=== PATIENT | male | born 1965 | race Caucasian/White ===

== ENCOUNTER 2019-04-07 00:09 | Day surgery (SDC) | payer BC, SELFPAY ==
[2019-04-06 10:46] VITALS: BMI 23.2
[2019-04-07 07:55] VITALS: BP 135/90; PULSE 64; RESP 20; TEMP 36.6; O2SAT 97; BMI 22.7
[2019-04-07] MEDS: LACTATED RINGERS 1,000 ML 150 ML IV CONT (08:08)
--- NOTE | 2019-04-07 08:15 | P.PNAN_ITS ---
Anes - Initial Pre Proc Eval Procedure: Operation Date: 04/07/19 09:00 Proposed Procedures p Screening Colonoscopy - Alexx Clarke MD Date/Time: 04/07/19 08:15 Surgeon: Alexx Clarke MD Pre Op Diagnosis: Neoplasm Screening Patient Data Age: 54 Gender: M Height: 6 ft 1 in Weight: 78.3 kg Last Vital Signs Temp 97.9 F 04/07/19 07:55 Pulse 64 04/07/19 07:55 Resp 20 04/07/19 07:55 BP 135/90 04/07/19 07:55 Pulse Ox 97 04/07/19 07:55 Allergies Allergy/AdvReac Type Severity Reaction Status Date / Time aspirin Allergy Unknown SWELLING Verified 04/06/19 10:44 morphine AdvReac Intermediate HIVES Verified 04/06/19 10:44 Home Medications Medication Instructions Recorded Confirmed Type fenofibrate 54 mg PO QAM 04/06/19 04/06/19 History Patient hx anesthesia problems: none Family hx anesthesia problems: none [facility] Past Medical History Medical History (Updated 04/07/19 @ 08:15 by Anupam Ambrocio MD) Hyperlipidemia Anes - Eval Final PreProcedure Day of Procedure 04/07/19 08:15 Patient weight: normal Heart: regular rate and rhythm Lungs: clear to auscultation Airway: Mallampati scale class II Neurological: alert and oriented Last oral intake: >/= 8 hours ASA classification: II Emergent: no Anesthetic plan: proceed Anesthesia type and monitoring: general GIVS and standard monitoring Informed Consent: The patient's anesthetic plan and its attendant risks and benefits were discussed with the patient/family/POA. Questions were solicited and answers provided to the satisfaction of the patient/family/POA.
--- NOTE | 2019-04-07 08:31 | P.HP_ITS ---
History of Present Illness History of Present Illness Consent: Risks, benefits, and alternatives have been discussed and questions answered. Patient agrees to proceed with procedure. Chief complaint: Neoplasm Screening Narrative: Apolinar Hernandez is a 54 year old male here for screening colonoscopy, never had one. Review of Systems Constitutional: Constitutional: Denies headache(s) and Denies weakness Eyes: Eyes: Denies blurry vision ENT: Reports Normal hearing present, Denies headache(s) and Denies neck pain Cardiovascular: Cardiovascular: Denies chest pain and Denies dyspnea Respiratory: Respiratory: Denies dyspnea Gastrointestinal: Gastrointestinal: Reports no additional gastrointestinal complaints Genitourinary: Genitourinary: Denies dysuria Musculoskeletal: Musculoskeletal: Denies neck pain Integumentary/Breasts: Skin/Breast: Denies dry skin Neurologic: Reports Normal hearing present, Denies headache(s) and Denies wea kness Psychiatric: Psychiatric: Denies anxiety Endocrine: Endocrine: Denies change in body appearance Hematologic/Lymphatic: Hematologic/Lymphatic: Denies easy bleeding Allergic/Immunologic: Allergic/Immunologic: Denies urticaria PMFSH Past Medical History Medical History (Updated 04/07/19 @ 08:31 by Alexx Clarke MD) Colon cancer screening Hyperlipidemia Meds Home Medications and Allergies Home Medications Medication Instructions Recorded Confirmed Type fenofibrate 54 mg PO QAM 04/06/19 04/06/19 History Allergies Allergy/AdvReac Type Severity Reaction Status Date / Time aspirin Allergy Unknown SWELLING Verified 04/06/19 10:44 morphine AdvReac Intermediate HIVES Verified 04/06/19 10:44 Vital Signs Vital Signs - 24 hr 04/07/19 07:55 Temperature 97.9 F Pulse Rate 64 Respiratory Rate 20 Blood Pressure 135/90 Pulse Oximetry 97 Exam Const: General: comfortable and no acute distress HENMT: General nose exam: Normal nares present Eyes: General: appearance normal, both eyes and all related structures Neck: Neck: no JVD Resp: Auscultation: clear to auscultation bilaterally Cardio: Rate: regular rate Rhythm: regular rhythm GI: Inspection: non-distended GI Palp: Yes Soft to palpation Skin: General skin exam: normal color Neuro: General: gait normal Speech: normal speech Extrem: General: normal to inspection Psych: Mental Status: mental status grossly normal Assessment and Plan Assessment and plan (1) Colon cancer screening: Code(s): Z12.11 - Encounter for screening for malignant neoplasm of colon Status: Acute Assessment and Plan: will proceed with colonoscopy
[2019-04-07 08:50] VITALS: BP 116/69; PULSE 68; RESP 20; O2SAT 97
[2019-04-07 09:00] VITALS: BP 110/73; PULSE 60; RESP 20; O2SAT 97
[2019-04-07 09:10] VITALS: BP 110/71; PULSE 53; RESP 20; O2SAT 97
== END 2019-04-07 09:18 | disposition home or self-care (01) ==
PROVIDERS: PCP Family Medicine Sports Medicine; Visit Provider Internal Medicine Gastroenterology
PROC: 0DJD8ZZ Inspection of Lower Intestinal Tract, Via Natural or Artificial Opening Endoscopic (ICD-10-PCS; CPT 45378; principal; 2019-04-07 09:00)
DX: Z12.11 Encounter for screening for malignant neoplasm of colon (principal); K64.8 Other hemorrhoids; K64.4 Residual hemorrhoidal skin tags; E78.5 Hyperlipidemia, unspecified
CPT/HCPCS: 45378; J2704; J7120

== ENCOUNTER 2019-10-13 14:39 | Outpatient (CLI) | payer BC, SELFPAY ==
--- NOTE | ~2019-10-13 | CT_ITS ---
EXAMINATION: CT abdomen pelvis wo con DATE: 10/13/2019 15:16 INDICATION: Left flank pain. History of stones. TECHNIQUE: Computed tomography (CT) of the abdomen and pelvis was performed without intravenous contr ast. The dose-length product was 373.68 mGy-cm. Automated exposure control and iterative reconstructi on technique were employed. COMPARISON: CT dated 08/20/2017. FINDINGS: There is a new 1.7 cm mass left lower lobe in the posterior costophrenic sulcus. Heart size is normal. No pleural or pericardial effusion. There is dependent atelectasis right lower lobe. The liver, spleen, pancreas, adrenal glands are unremarkable. There are multiple nonobstructing right renal stones, largest measuring 3 mm. There are punctate nonobstructing left renal stones. Gallbladd er is present. Nonobstructive bowel gas pattern. Colonic diverticulosis without evidence for divertic ulitis. Fat-containing left inguinal hernia. No abnormal pelvic masses or fluid collections. Gallblad eileen is present. No free air or free fluid. There is a punctate distal left ureteral stone, image 165. No significant hydronephrosis. IMPRESSION: 1. Punctate 2 mm distal left ureteral stone just proximal to the UVJ. No significant hydronephrosis. 2: New 1.7 cm left lower lobe mass posterior costophrenic sulcus. Recommend further evaluation with p et/CT and/or tissue sampling. Cannot exclude malignancy. 3: Nonobstructing bilateral nephrolithiasis. Reviewed, dictated and finalized at location A. IMPRESSION: 1. Punctate 2 mm distal left ureteral stone just proximal to the UVJ. No signif icant hydronephrosis. 2: New 1.7 cm left lower lobe mass posterior costophrenic sulcus. Recommend fur ther evaluation with pet/CT and/or tissue sampling. Cannot exclude malignancy. 3: Nonobstructing bilateral nephrolithiasis.
== END 2019-10-13 14:40 | disposition home or self-care (01) ==
LOC: ANHIMG 14:44
PROVIDERS: PCP Family Medicine Sports Medicine; Visit Provider Urology
DX: R10.9 Unspecified abdominal pain (principal); R91.8 Other nonspecific abnormal finding of lung field; N20.0 Calculus of kidney
CPT/HCPCS: 74176

== ENCOUNTER 2019-10-15 01:28 | Day surgery (SDC) | payer BC, SELFPAY ==
[2019-10-14 15:14] VITALS: BMI 23.1
[2019-10-15] VITALS (7 sets, daily range): BP systolic 120–142; BP diastolic 72–88; PULSE 53–78; RESP 12–16; TEMP 36.6–36.8; O2SAT 97–99; BMI 22.8
--- NOTE | ~2019-10-15 | XR_ITS ---
EXAMINATION: XR fluoroscopy no charge EXAM DATE: 10/15/2019 12:48 INDICATION: Left ureteral stone. TECHNIQUE: Fluoroscopy used during XR fluoroscopy no charge performed by Dr. Tanner Sheriff MD. The DAP for this procedure was 0.11 mGym2. FINDINGS: Left ureter was cannulated, with wire extending up the ureter. Correlate with procedure n ote. IMPRESSION: Fluoroscopy used during XR fluoroscopy no charge. Reviewed, dictated and finalized at location A.
--- NOTE | 2019-10-15 07:22 | WPDHPUPDATE1 ---
History and Physical Update Update Date/Time: 10/15/19 07:22 History and Physical has been reviewed, including an updated exam of the patient. There are NO changes in the patient's condition. Risks, benefits, and alternatives have been discussed and questions answered. Patient agrees to proceed with procedure.
--- NOTE | 2019-10-15 11:16 | ECG_ITS ---
Measurements Intervals [place] Rate: 55 P: 76 RI: 267 QRS: 62 QRSD: 90 T: 44 QT: 408 QTc: 390 Interpretive Statements SINUS BRADYCARDIA WITH FIRST DEGREE AV BLOCK INCOMPLETE RIGHT BUNDLE BRANCH BLOCK PEAKED T WAVES- CONSIDER HYPERKALEMIA OR ISCHEMIA ABNORMAL ECG Electronically Signed On 10-15-2019 12:48:27 CDT by Roge Abreu D.O.
[2019-10-15] MEDS: LACTATED RINGERS 1,000 ML 30 ML IV CONT (11:25)
--- NOTE | 2019-10-15 11:52 | WPDANESEPPF ---
Anes - Initial Pre Proc Eval Procedure: Operation Date: 10/15/19 13:00 Proposed Procedures p Cystoscopy, Left Ureteroscopy, Left Stone Extraction - Tanner Sheriff MD Date/Time: 10/15/19 11:52 Surgeon: Tanner Sheriff MD Pre Op Diagnosis: Left Ureteral Stone Patient Data Age: 54 Gender: M Height: 6 ft 1 in Weight: 78.4 kg Last Vital Signs Temp 36.8 C 10/15/19 11:46 Pulse 53 L 10/15/19 11:46 Resp 16 10/15/19 11:46 BP 130/85 10/15/19 11:46 Pulse Ox 98 10/15/19 11:46 Allergies Allergy/AdvReac Type Severity Reaction Status Date / Time aspirin Allergy Unknown SWELLING Verified 10/15/19 11:47 morphine AdvReac Intermediate HIVES Verified 10/15/19 11:47 Home Medications Medication Instructions Recorded Confirmed Type fenofibrate 54 mg PO QAM 04/06/19 10/15/19 History Vitamin C 1 tablet PO DAILY 10/14/19 10/15/19 History Patient hx anesthesia problems: none Family hx anesthesia problems: none PMFSH Past Medical History Medical History Colon cancer screening Hyperlipidemia Social History Social History Smoking status: Never smoker Spiritual care concerns: No Anes - Eval Final PreProcedure Day of Procedure 10/15/19 11:52 Patient weight: normal Heart: regular rate and rhythm Lungs: clear to auscultation Airway: Mallampati scale class II Neurological: alert and oriented Last oral intake: >/= 8 hours ASA classification: II Emergent: no Anesthetic plan: proceed Anesthesia type and monitoring: general LMA and standard monitoring Informed Consent: The patient's anesthetic plan and its attendant risks and benefits were discussed with the patient/family/POA. Questions were solicited and answers provided to the satisfaction of the patient/family/POA.
[2019-10-15] MEDS: ceFAZolin 2 GM/D5W 50 ML 2 GM/50 ML BAG IVPB (12:23)
[2019-10-15] MEDS: KETOROLAC 30 MG/ML VIAL (*BKC) IV PUSH (12:42)
--- NOTE | 2019-10-15 12:47 | P.OP_ITS ---
Procedure Note - Detailed Date of procedure: 10/15/19 Pre-op diagnosis: Left Ureteral Stone Post-op diagnosis: same Procedure performed: Cystoscopy, left ureteroscopy with stone extraction Description of procedure: The patient was brought to the operative suite where he is prepped and draped in a routine sterile fashion while in the dorsal lithotomy position after the uneventful induction of a general LMA anesthetic. A 19F rigid cystoscope was placed in the bladder. There are no urethral strictures. His prostatic urethra measures, approximately, 1.5cm with no median lobe enlargement. The bladder mucosa was endoscopically normal without hyperemia or neoplasm. There was a single, orthotopic ureteral orifice bilaterally. A 0.035 glidewire was advanced into the left renal pelvis under fluoroscopy. The distal ureter was dilated with an 8F/10F ureteral dilator. Ureteroscopy was undertaken with a short, tapered, semi-rigid ureteroscope and the stone was extracted with ease using a 1.9F [employer] disposable stone basket. In grasping the stone in the bladder the fractured into multiple small pieces which were non retrievable because other tiny size.Due to the ease of this manipulation I opted not to place a ureteral stent. The patient's bladder was emptied and was taken to the recovery room having tolerated this procedure well. Anesthesia: GLMA Surgeon: Tanner Sheriff MD Estimated blood loss (mL): 0 Drains: No Packing: No Pathology: none sent Complications: No immediate complications Condition: stable Disposition: PACU
--- NOTE | 2019-10-20 08:09 | P.HP_ITS ---
History of Present Illness History of Present Illness Consent: Risks, benefits, and alternatives have been discussed and questions answered. Patient agrees to proceed with procedure. Chief complaint: Left Ureteral Stone Narrative: Apolinar Hernandez is a 54 year old male with history of urolithiasis. He recently called with left renal colic and CT-abd/pelvis showed an obstructing 2mm left distal ureteral stone. He denied fever/chills or gross hematuria. Review of Systems Cardiovascular: Cardiovascular: Denies chest pain, Denies lightheadedness, Denies palpitations and Denies dyspnea Respiratory: Respiratory: Denies dyspnea Gastrointestinal: Gastrointestinal: Denies diarrhea, Denies nausea and Denies vomiting Genitourinary: Genitourinary: Denies hematuria and Denies dysuria Endocrine: Endocrine: Denies palpitations PMFSH Past Medical History Medical History Colon cancer screening Hyperlipidemia Social History Social History Smoking status: Never smoker Spiritual care concerns: No Meds Home Medications and Allergies Home Medications Medication Instructions Recorded Confirmed Type fenofibrate 54 mg PO QAM 04/06/19 10/15/19 History Vitamin C 1 tablet PO DAILY 10/14/19 10/15/19 History hydrocodone-acetaminophen 1 - 2 tablet PO Q6H PRN #20 tablet 10/15/19 Rx sulfamethoxazole-trimethoprim 1 tablet PO Q12H #6 tablet 10/15/19 Rx Allergies Allergy/AdvReac Type Severity Reaction Status Date / Time aspirin Allergy Unknown SWELLING Verified 10/15/19 11:47 morphine AdvReac Intermediate HIVES Verified 10/15/19 11:47 Exam Const: General: no acute distress Resp: Effort & Inspection: normal respiratory effort GI: Inspection: non-distended GI Palp: No abdominal tenderness and No Guarding due to palpation present (GI) Auscultation: normal bowel sounds Assessment and Plan Assessment and plan (1) Lung mass: Code(s): R91.8 - Other nonspecific abnormal finding of lung field Status: Acute Assessment and Plan: * 17mm left pulmonary mass incidentally identified on CT-abd/pelvis for ureteral stone. * Discussed with patient and and referred to PCP. (2) Left ureteral stone: Code(s): N20.1 - Calculus of ureter Status: Acute Assessment and Plan: * Cystoscopy, left ureteroscopy with stone extraction.
== END 2019-10-15 14:30 | disposition home or self-care (01) ==
PROVIDERS: PCP Family Medicine Sports Medicine; Visit Provider Urology
PROC: (CPT 52352; principal; 2019-10-15 13:00)
DX: N20.1 Calculus of ureter (principal)
CPT/HCPCS: 52352; 93005; A9270; C1769; J0690; J1885; J2250; J2405; J2704; J3010; J7120

== ENCOUNTER 2020-01-08 14:15 | Outpatient (CLI) | payer BC, SELFPAY ==
--- NOTE | ~2020-01-08 | XR_ITS ---
XR abdomen/kub 1V DATE: 01/08/2020 14:44 INDICATION: Right flank pain. History kidney stones. TECHNIQUE: AP projection, 2 views COMPARISON: 10/13/[address] abdomen pelvis FINDINGS: There is no evidence of bowel obstruction. No visceromegaly is evident. The psoas shadows a re intact. No abnormal calcification is noted overlying the expected course of the right ureter, give n the patient complained of right flank pain. IMPRESSION: Nonspecific abdomen Reviewed, dictated and finalized at Location A. Reviewed, dictated and finalized at location B. INESS PARAPROFESSIONAL IMPRESSION: Nonspecific abdomen
== END 2020-01-08 14:16 | disposition home or self-care (01) ==
LOC: ANHIMG 14:20
PROVIDERS: PCP Family Medicine Sports Medicine; Visit Provider Urology
DX: R10.9 Unspecified abdominal pain (principal); Z87.442 Personal history of urinary calculi
CPT/HCPCS: 74018

== ENCOUNTER 2020-01-19 01:47 | Outpatient (CLI) | payer BC, SELFPAY ==
[2020-01-19 19:16] LABS: SARS-CoV-2 RNA PCR Negative
== END 2020-01-19 01:48 | disposition home or self-care (01) ==
LOC: ANHCOVIDDT 01:47
PROVIDERS: PCP Family Medicine Sports Medicine; Visit Provider Urology
DX: Z01.812 Encounter for preprocedural laboratory examination (principal); Z20.828 Contact with and (suspected) exposure to other viral communicable diseases
CPT/HCPCS: 87635; C9803; U0003

== ENCOUNTER 2020-01-19 10:18 | Outpatient (CLI) | payer BC, SELFPAY ==
[2020-01-19 10:56] LABS: Partial Thromboplastin Time 28.1 SECONDS (22.3-36.8)
== END 2020-01-19 10:19 | disposition home or self-care (01) ==
LOC: ANHSURGERY 10:18
PROVIDERS: PCP Family Medicine Sports Medicine; Visit Provider Urology
DX: Z01.812 Encounter for preprocedural laboratory examination (principal); N20.0 Calculus of kidney; Z51.81 Encounter for therapeutic drug level monitoring; Z79.899 Other long term (current) drug therapy
CPT/HCPCS: 36415; 85610; 85730; 87086

== ENCOUNTER 2020-01-22 01:21 | Day surgery (SDC) | payer BC, SELFPAY ==
[2020-01-18 12:37] VITALS: BMI 22.4
--- NOTE | 2020-01-21 08:09 | P.HP_ITS ---
History of Present Illness History of Present Illness Consent: Risks, benefits, and alternatives have been discussed and questions answered. Patient agrees to proceed with procedure. Chief complaint: Right Renal Stone Narrative: Apolinar Hernandez is a 55 year old male Who has a history of recurring urolithiasis and is status post endoscopic left ureteral stone extraction in September 2019. He is known to have a residual 5 mm stone in his right kidney which is intermittently symptomatic. After discussion of options, including observation and intervention with either an endoscopic or ESWL approach, he elected for the latter. Review of Systems Cardiovascular: Cardiovascular: Denies chest pain, Denies lightheadedness, Denies palpitations and Denies dyspnea Respiratory: Respiratory: Denies dyspnea Gastrointestinal: Gastrointestinal: Denies diarrhea, Denies nausea and Denies vomiting Genitourinary: Genitourinary: Denies hematuria and Denies dysuria Endocrine: Endocrine: Denies palpitations PMFSH Past Medical History Medical History (Updated 01/21/20 @ 08:10 by Tanner Sheriff MD) Colon cancer screening Hyperlipidemia Social History Social History Smoking status: Never smoker Spiritual care concerns: No Meds Home Medications and Allergies Home Medications Medication Instructions Recorded Confirmed Type fenofibrate 54 mg PO QAM 04/06/19 01/18/20 History Allergies Allergy/AdvReac Type Severity Reaction Status Date / Time aspirin Allergy Unknown SWELLING Verified 01/18/20 11:21 morphine AdvReac Intermediate HIVES Verified 01/18/20 11:21 Exam Const: General: no acute distress Resp: Effort & Inspection: normal respiratory effort GI: Inspection: non-distended GI Palp: No abdominal tenderness and No Guarding due to palpation present (GI) Auscultation: normal bowel sounds Assessment and Plan Assessment and plan (1) Right renal stone: Code(s): N20.0 - Calculus of kidney Status: Acute Assessment and Plan: * Right ESWL
--- NOTE | ~2020-01-22 | XR_ITS ---
EXAMINATION: XR abdomen/kub 1V EXAM DATE: 01/22/2020 07:11 INDICATION: For lithotripsy. TECHNIQUE: Frontal projection(s) of the abdomen for interpretation. Comparison is made to prior exami nation from 01/08/2020. FINDINGS: There is moderate amount of colonic stool and gas. No small bowel dilation, nonobstructiv e bowel gas pattern. There are no suspicious calcifications identified. There is no organomegaly suspected. The bones are unremarkable. IMPRESSION: Moderate colonic stool. Reviewed, dictated and finalized at location A. TABOUT SUPERVISOR IMPRESSION: Moderate colonic stool.
--- NOTE | 2020-01-22 06:38 | WPDHPUPDATE1 ---
History and Physical Update Update Date/Time: 01/22/20 06:38 History and Physical has been reviewed, including an updated exam of the patient. There are NO changes in the patient's condition. Risks, benefits, and alternatives have been discussed and questions answered. Patient agrees to proceed with procedure.
[2020-01-22 07:20] VITALS: BP 122/76; PULSE 58; RESP 16; TEMP 36.7; O2SAT 98
[2020-01-22] MEDS: LACTATED RINGERS 1,000 ML 30 ML IV CONT ×2 (08:10→09:33)
--- NOTE | 2020-01-22 08:14 | P.PNAN_ITS ---
Anes - Initial Pre Proc Eval Procedure: Operation Date: 01/22/20 09:00 Proposed Procedures p Right Renal Extracorporeal Shock Wave Lithotripsy - Tanner Sheriff MD Date/Time: 01/22/20 08:14 Surgeon: Tanner Sheriff MD Pre Op Diagnosis: Right Renal Stone Patient Data Age: 55 Gender: M Height: 6 ft 1 in Weight: 78.8 kg Last Vital Signs Temp 36.7 C 01/22/20 07:20 Pulse 58 L 01/22/20 07:20 Resp 16 01/22/20 07:20 BP 122/76 01/22/20 07:20 Pulse Ox 98 01/22/20 07:20 Allergies Allergy/AdvReac Type Severity Reaction Status Date / Time aspirin Allergy Severe SWELLING Verified 01/22/20 07:59 morphine Allergy Severe HIVES Verified 01/22/20 07:59 Home Medications Medication Instructions Recorded Confirmed Type fenofibrate 54 mg PO QAM 04/06/19 01/22/20 History Patient hx anesthesia problems: none Family hx [facility] problems: [facility] Past Medical History Medical History Colon cancer screening Hyperlipidemia Social History Social History Smoking status: Never smoker Living arrangements: with family Spiritual care concerns: No Anes - Eval Final PreProcedure Day of Procedure 01/22/20 08:14 Patient weight: normal Heart: regular rate and rhythm Lungs: clear to auscultation Airway: Mallampati scale class II Neurological: alert and oriented Last oral intake: >/= 8 hours ASA classification: II Emergent: no Anesthetic plan: proceed Anesthesia type and monitoring: general LMA and standard monitoring Informed Consent: The patient's anesthetic plan and its attendant risks and benefits were discussed with the patient/family/POA. Questions were solicited and answers provided to the satisfaction of the patient/family/POA.
[2020-01-22] MEDS: ceFAZolin 2 GM/D5W 50 ML 2 GM/50 ML BAG IVPB (08:42)
--- NOTE | 2020-01-22 09:05 | PM.PROC ---
Procedure Note - Detailed Date of procedure: 01/22/20 Pre-op diagnosis: Right Renal Stone Post-op diagnosis: same Procedure performed: Right ESWL Description of procedure: The patient was brought to the operative suite where he was placed in the supine position on the Dornier lithotripsy table. Due to bowel contents his right renal stones were difficult to definitively identify on fluoroscopy so we gave IV contrast and then could clearly identify the calyces that housed his 2 right renal stones. The focal point of the lithotripter was first placed at a 5mm right mid pole calculus where we gave 2000 shocks at a power setting of 4. We then delivered an additional 500 shocks to a small stone in a lower pole calyx. The patient tolerated the procedure well and was taken to the recovery room in good condition. Anesthesia: GLMA Surgeon: Tanner Sheriff MD Estimated blood loss (mL): 0 Drains: No Packing: No Pathology: none sent Complications: No immediate complications Condition: stable Disposition: PACU
[2020-01-22 09:33] VITALS: BP 119/72; PULSE 69; RESP 16; TEMP 36.3; O2SAT 100
[2020-01-22 09:45] VITALS: BP 124/84; PULSE 66; RESP 15; O2SAT 100
[2020-01-22 10:00] VITALS: BP 120/75; PULSE 63; RESP 13; O2SAT 100
[2020-01-22 10:10] VITALS: BP 122/76; PULSE 60; RESP 12
[2020-01-22 10:40] VITALS: BP 133/73; PULSE 56; RESP 14
== END 2020-01-22 11:00 | disposition home or self-care (01) ==
PROVIDERS: PCP Family Medicine Sports Medicine; Visit Provider Urology
PROC: (CPT 50590; principal; 2020-01-22 09:00)
DX: N20.0 Calculus of kidney (principal); E78.5 Hyperlipidemia, unspecified
CPT/HCPCS: 50590; 74018; C1887; J0690; J1100; J2250; J2405; J2704; J3010; J7120; Q9966

== ENCOUNTER 2020-05-09 13:23 | Outpatient (CLI) | payer BC, SELFPAY ==
--- NOTE | ~2020-05-09 | XR_ITS ---
XR abdomen/kub 1V DATE: 05/09/2020 13:37 INDICATION: Kidney stone history TECHNIQUE: AP projection, 2 views COMPARISON: 01/22/2020 KUB FINDINGS: The psoas shadows are intact. No visceromegaly is evident. There is a moderately prominent amount of fecal material in the colon but no apparent bowel obstruction. IMPRESSION: Nonspecific abdomen Noncontrast CT abdomen pelvis examination would be more sensitive and accurate for detection of urina ry tract calculi, if clinically desired Reviewed, dictated and finalized at Location A. Reviewed, dictated and finalized at location B. IMPRESSION: Nonspecific abdomen Noncontrast CT abdomen pelvis examination would be more sensitive and accurate for detection of urinary tract calculi, if clinically desired
== END 2020-05-09 13:24 | disposition home or self-care (01) ==
PROVIDERS: PCP Family Medicine Sports Medicine; Visit Provider Urology
DX: Z87.442 Personal history of urinary calculi (principal)
CPT/HCPCS: 74018

== ENCOUNTER 2020-05-10 16:24 | Outpatient (CLI) | payer BC, SELFPAY ==
--- NOTE | ~2020-05-10 | CT_ITS ---
EXAMINATION: CT diagnostic chest wo con EXAM DATE: 05/10/2020 16:45 INDICATION: Lung nodule. TECHNIQUE: Spiral CT of the chest without contrast. Axial, coronal and sagittal images were reviewe d. Coronal maximum intensity pixel images of chest reviewed. The dose-length product (DLP) for this examination was 90.28 mGy-cm. The exposure was tailored according to patient size (auto mA exposure control), and iterative reconstruction (ASIR) was used as additional dose reduction technique. Corre lation is made to CT abdomen pelvis 10/13/2019. FINDINGS: Previously described 1.7 cm left lower lobe opacity has essentially resolved. There is a n ew similar-appearing smaller right lower lobe posterior sulcal nodule measuring 1.0 cm, could be post infectious given that the other nodule resolved. Location would make biopsy challenging. Recommend 3 month follow-up chest CT without contrast. There are no pleural or pericardial effusions. Tracheobronchial tree is patent. There is no media stinal, hilar or axillary lymphadenopathy. There is no pneumothorax. Heart normal in size. No e vidence of coronary arterial calcification. Upper abdomen is unremarkable. There is thoracic spond ylosis without osteoblastic or osteolytic lesions identified. IMPRESSION: Resolution of previously seen left basilar nodule, but development of another nodule on t he right. Probably waxing and waning of post infectious residua. Low position means it could be reeva luated if patient has follow-up CT abdomen pelvis for stones. If that is not indicated, then a follow -up chest CT without contrast in 3-6 months recommended. Reviewed, dictated and finalized at location A. IMPRESSION: Resolution of previously seen left basilar nodule, but development of another nodule on the right. Probably waxing and waning of post infectious r esidua. Low position means it could be reevaluated if patient has follow-up CT abdomen pelvis for stones. If that is not indicated, then a follow-up chest CT without contrast in 3-6 months recommended.
== END 2020-05-10 16:25 | disposition home or self-care (01) ==
PROVIDERS: PCP Family Medicine Sports Medicine
DX: R91.1 Solitary pulmonary nodule (principal)
CPT/HCPCS: 71250

== ENCOUNTER 2020-07-26 14:55 | Outpatient (CLI) | payer BC, SELFPAY ==
--- NOTE | ~2020-07-26 | CT_ITS ---
EXAMINATION: CT diagnostic chest w con DATE: 07/26/2020 15:23 INDICATION: Abnormal finding on prior examination. TECHNIQUE: Computed tomography (CT) of the chest was performed with 75 cc Omnipaque 350 intravenous c ontrast. The dose-length product was 190.84 mGy-cm. Automated exposure control and iterative reconstr uction technique were employed. COMPARISON: CT dated 05/10/2020 FINDINGS: Heart size is normal. Small hiatal hernia. No thoracic lymphadenopathy. No evidence for aor tic aneurysm or dissection. Upper abdomen is unremarkable. Dependent atelectasis. There is an 8 mm ri ght lower lobe nodule, decreased in size compared with prior study when it measured 11 mm. No endobro nchial lesions. No endobronchial lesions. No acute osseous abnormality. IMPRESSION: 1. Decreased size of 8 mm right lower lobe nodule compared with 05/10/2020, most likely infectious/inf lammatory. Recommend follow-up CT chest in 6 months. Reviewed, dictated and finalized at location B. IMPRESSION: 1. Decreased size of 8 mm right lower lobe nodule compared with 05/10/2020, most likely infectious/inflammatory. Recommend follow-up CT chest in 6 months.
== END 2020-07-26 14:56 | disposition home or self-care (01) ==
LOC: ANHIMG 15:00
PROVIDERS: PCP Family Medicine Sports Medicine
DX: R91.1 Solitary pulmonary nodule (principal)
CPT/HCPCS: 71260; Q9967

== ENCOUNTER 2020-08-06 19:16 | Observation (INO) | payer BC, SELFPAY ==
--- NOTE | ~2020-08-06 | CT_ITS ---
EXAMINATION: CTA chest PE abdomen pel DATE: 08/06/2020 20:54 INDICATION: Pulmonary embolism. Stat hematuria. TECHNIQUE: Computed tomography (CT) of the chest, abdomen, and pelvis was performed with 100 cc Omnip aque 350 intravenous contrast. Automated exposure control and iterative reconstruction technique were employed. Exam dose: 634.25 mGy-cm total exam DLP. COMPARISON: 07/26/2020 CT diagnostic chest 10/13/[address] abdomen pelvis FINDINGS: There is diagnostic contrast enhancement of the pulmonary arteries. There are scattered mild right up per lobe and bilateral lobe thromboembolic filling defects of the pulmonary arteries. No thoracic aortic aneurysm. No hilar or mediastinal mass lesion or lymphadenopathy. Normal heart size. No pericardial or pleural effusion. Mild dependent posterolateral and posterior right lower lobe atelectasis and lesser posterior left ba silar atelectasis. The lungs otherwise appear clear. The liver, gallbladder, bile ducts, spleen, pancreas, pancreatic duct, and adrenal glands are unremar kable. Approximately 4 mm right ureteropelvic junction calculus with minimal right hydronephrosis. Pinpoint left renal calculus is suggested. Normal caliber of the abdominal aorta. No intraperitoneal or retroperitoneal or pelvic mass lesion or adenopathy or ascites. There is a prominent amount of fecal material in the rectum and colon. No bowel obstruction or intrap eritoneal free air is detected. Included skeletal structures are unremarkable IMPRESSION: Mild bilateral pulmonary thromboembolism 4 mm right ureteropelvic junction calculus with minimal right hydronephrosis Reviewed, dictated and finalized at Location A. Reviewed, dictated and finalized at location A.
[2020-08-06 19:27] VITALS: BP 159/78; PULSE 60; RESP 16; TEMP 36.4; O2SAT 94
[2020-08-06 20:07] LABS: Add Urine Microscopic? YES; Appearance Urine Cloudy (Clear); Bilirubin Urine Negative (Negative); Blood Urine 3+ (Negative); Color Urine Red (Yellow); Glucose Urine UA Negative (Negative); Ketones Urine Negative (Negative); Leukocyte Esterase Ur Negative LEU/UL (Negative); Nitrate Urine Negative (Negative); Protein Urine 2+ mg/dL (Negative); RBC Urine >75 /hpf (0-2); Specific Grav Ur 1.011 (1.001-1.035); Urobilinogen Urine Negative mg/dL (<2.0); WBC Urine 0-3 /hpf
--- NOTE | 2020-08-06 20:29 | ED.GENADULT ---
HPI - General Adult General Chief complaint: Urogenital-Male Stated complaint: Hematuria Time Seen by Provider: 08/06/20 20:00 Source: patient Mode of arrival: ambulatory Limitations: no limitations History of Present Illness HPI narrative: Patient presents for evaluation of hematuria. Symptom onset yesterday. States that he has a history of kidney stones. He had a incidental finding of a pulmonary nodule noted when he had a CT abdomen pelvis for kidney stones. He was referred to pulmonology who is doing serial imaging on him. Ten days ago he went for CT of his chest and was found to have several PE's. He was sent to the emergency department at [facility] where he was found to have multiple DVTs. He was admitted and started on Xarelto and is currently taking 15 mg p.o. twice daily. He noted a dark appearance to his urine yesterday. He increased fluid intake. He had a few episodes of clear yellow urine earlier today followed by episodes of surya hematuria. Denies any abdominal pain, low back pain, urinary frequency, hesitancy, urgency. No blood in his ejaculate. No fever, chills, nausea, vomiting. Last bowel movement was earlier today, solid and without the presence of blood to his knowledge. She denies alcohol intake and denies aspirin/Plavix/other blood thinners. He states in January he was experiencing calf pain and had a negative doppler at that time. He was undergoing physical therapy and believes he completed about 30 sessions. He has not experienced any chest pain or shortness of breath. No family history of VTE to his knowledge. He does not smoke. No surgeries within the last 4 weeks. No additional complaints or concerns. He believes he had a PSA within the last 2 years which was normal. Related Data Home Medications Medication Instructions Recorded Confirmed fenofibrate 54 mg PO QAM 04/06/19 01/22/20 Allergies Allergy/AdvReac Type Severity Reaction Status Date / Time aspirin Allergy Severe SWELLING Verified 01/22/20 07:59 morphine Allergy Severe HIVES Verified 01/22/20 07:59 Review of Systems Review of Systems: Narrative: CONSTITUTIONAL: Denies fever, chills, or sweats. EYES: Denies visual changes, redness, or discharge. ENT: Denies rhinorrhea, congestion, sore throat, or otalgia. CARDIOVASCULAR: Denies chest pain, palpitations, or edema. RESPIRATORY: Denies cough or dyspnea. GASTROINTESTINAL: Denies abdominal pain, nausea, vomiting, or diarrhea. GENITOURINARY: Reports hematuria. Denies urinary frequency, urgency, hesitancy, blood in the ejaculate SKIN: Denies rash or itching. MUSCULOSKELETAL: Denies back pain, joint pain, or myalgia. NEUROLOGIC: Denies headache, numbness, dizziness, or weakness. PSYCHIATRIC: Denies anxiety or depression. 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 HEAD: Normocephalic, atraumatic. EYES: PERRLA and EOMI. ENT: Nares clear, no rhinorrhea or epistaxis. Mucous membranes moist. Oropharynx without tonsillar hypertrophy exudate or other lesions. Bilateral TMs pearly mccartney nonbulging NECK: Supple. No adenopathy or masses. No carotid bruits or JVD CHEST: Clear to auscultation. No respiratory dis
[2020-08-06 20:47] LABS: Basophils Absolute Auto 0.1 K/mm3 (0.0-0.1); Basophils Percent Auto 1.4 % (0.2-1.2); Eosinophils Absolute Auto 0.4 K/mm3 (0-0.3); Eosinophils Percent Auto 6.4 % (0-4.4); Hematocrit 42.4 % (42.0-52.0); Immature Granulocyte Absolute 0.02 K/mm3 (0.00-0.031); Immature Granulocyte Percent A 0.3 % (0-0.5); Lymphocytes Absolute Auto 2.22 K/mm3 (0.9-3.2); Lymphocytes Percent Auto 38.3 % (18.3-44.2); Mean Corpuscular Hemoglobin 30.4 pg (26-34); Mean Platelet Volume 9.9 fl (7.4-10.4); Monocytes Absolute Auto 0.6 K/mm3 (0.1-0.6); Monocytes Percent Auto 9.7 % (2.6-8.5); Neutrophils Absolute Auto 2.6 K/mm3 (1.3-6.7); Neutrophils Percent Auto 43.9 % (45.5-73.1); Platelet Count Result 168 k/mm3 (150-375); Red Blood Count 4.61 M/mm3 (4.6-6.20); White Blood Count 5.8 K/mm3 (4.5-10.0)
[2020-08-06 20:54] LABS: Estimated CRCL calculation 64 ml/min; Estimated Glomerular Filt Rate 57
[2020-08-06 20:57] LABS: Alanine Aminotransferase 21 U/L (4-50); Alkaline Phosphatase 60 U/L (38-126); Anion Gap 7 mmol/L (8-16); Aspartate Amino Transferase 19 U/L (17-59); Bilirubin,Total 0.3 mg/dL (0.2-1.3); Blood Urea Nitrogen 17 mg/dL (9-20); Calcium 9.5 mg/dL (8.4-10.2); Carbon Dioxide 27 mmol/L (22-30); Chloride 106 mmol/L (98-107); Estimated CRCL calculation 69 ml/min; Estimated Glomerular Filt Rate > 60; Glucose 104 mg/dL (75-110); INR 1.5; Partial Thromboplastin Time 32.4 SECONDS (22.3-36.8); Potassium 3.4 mmol/L (3.4-5.0); Prothrombin Time 18.8 Seconds (11.1-14.7); Sodium 140 mmol/L (137-145)
[2020-08-06 21:22] VITALS: BP 150/84; PULSE 55; RESP 18; O2SAT 100
[2020-08-06 23:32] VITALS: BP 136/87; PULSE 48; RESP 18; O2SAT 99
--- NOTE | 2020-08-07 00:03 | PC.NURSE ---
called to give report rn off the floor.
--- NOTE | 2020-08-07 00:10 | PC.NURSE ---
report given to shanna
[2020-08-07 00:25] VITALS: BP 137/85; PULSE 49; RESP 16; TEMP 37.1; O2SAT 100; BMI 23.3
--- NOTE | 2020-08-07 00:40 | ADMGEN ---
This patient, Apolinar Hernandez, was admitted to 3 [facility] Surg Room 320-01 at 0015. Patient/family oriented to hospital policies and general routines including ID bracelet, bed and alarms, visiting hours, pain management, procedures, bathroom and other care routines, personal items, smoking policy, room service/diet, and visiting hours. Information on how to activate the Rapid Response Team has been discussed. Patient/Family are encouraged to report perceived risks to care and to ask questions if they do not understand what they are told or what they should do.
--- NOTE | 2020-08-07 01:09 | PM.IMHP ---
H&P: HPI History of Present Illness Date/Time: 08/07/20 01:09 Chief Complaint: Peeing blood Narrative: 55-year-old male with past medical history of prior kidney stones and recent diagnosis of pulmonary embolism on Xarelto who presented to the ER from home due to gross hematuria. The patient had follow-up CT scan regarding a known lung nodule. Had original lung nodule couple of years ago on the left lung. When he went for repeat CT scan to follow-up the original lung nodule had resolved but he had a new lung nodule. Went for his routine repeat CT 07/27/2020 and demonstrated decreased size of his right lung nodule but demonstrated bilateral pulmonary embolisms with small thrombus burden. He contacted his kelp or seagrass gatherer who works out of [facility] and he sent the patient for venous Doppler. Venous Doppler demonstrated bilateral lower extremity DVTs. The patient was started on Xarelto 15 mg p.o. b.i.d.. He was not having any significant shortness of breath, cough, congestion or lower extremity swelling. He has no known risk factors for DVT or PE. He is awaiting results of hypercoagulable workup. He reports he felt as if he was in his usual state of health until 08/05/2020 when he noticed he had some darker urine. Then on 08/06 he had dark urine in a.m. but drink plenty of fluids in his urine cleared up. However later that day he had 3 episodes of gross hematuria with urine that looked like ?fruit punch.? He decided to come to the ER for evaluation. He has had a history of multiple kidney stones at all started after the age of 49. He last had lithotripsy 02/07/[address] Sheriff. He reports that when he has kidney stones Review of Systems Review of Systems: Narrative: 12 systems were reviewed with pertinent positives and negatives per HPI. Except as documented in the HPI, all other systems were reviewed and are negative. [facility] Past Medical History Medical History (Updated 08/07/20 @ 05:26 by Cassi Acosta DO) Hyperlipidemia Kidney stones Lung nodule, solitary Right lung nodule decreasing in size Pulmonary embolism Surgical History Surgical History (Updated 08/07/20 @ 01:12 by Cassi Acosta DO) History of lithotripsy (01/2020) Right renal stone Family History Family History Mother , at 93 years old Diabetes mellitus Hypertension Father , at 86 years old Malignant neoplasm of prostate Coronary artery disease Late onset Brain tumor Social History Social History (Updated 08/07/20 @ 05:29 by Cassi Acosta DO) Social History: He is . 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 He continues to exercise at on his bike frequently. 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 Gender identity (if verbalized by the patient): Male Sexual Orientation (if Verbalized by the Patient): Straight or Heterosexual Spiritual care concerns: No Meds Home Medications and Allergies Home Medications Medication Instructions Recorded Confirmed Type fenofibrate 54 mg PO QAM 04/06/19 08/07/20 History hydrocodone-acetaminophen 1 - 2 tablet PO Q6H PRN #20 tablet 01/22/20 08/07/20 Rx sulfamethoxazole-trimethoprim 1 tablet PO Q12H #6 tablet 01/22/20 08/07/20 Rx rivaroxaban [Xarelto] 30 mg PO DAILY 08/06/20 08/07/20 History Allergies Allergy/AdvReac Type Severity Reaction Status Date / Time aspirin Allergy Severe SWELLING Verified 01/22/20 07:59 morphine Allergy Severe HIVES Verified 01/22/20 07:59 Vital Signs Vital Signs - 24 hr 08/06/20 19:27 08/06/20 21:22 08/06/20 23:32 Temperature 97.6 F Pulse Rate 60 55 L 48 L Respiratory Rate 16 18 18 Blood Pressure 159/78 H 150/84 H 136/87 Puls
[2020-08-07] MEDS: SODIUM CHLORIDE 0.9% IV 1,000 ML 100 ML IV CONT ×3 (01:21→11:43)
[2020-08-07] MEDS: TAMSULOSIN HCL 0.4 MG CAPSULE PO (03:15)
[2020-08-07 04:00] VITALS: BP 154/86; PULSE 50; RESP 16; TEMP 36.7; O2SAT 100
[2020-08-07 06:10] LABS: Basophils Absolute Auto 0.1 K/mm3 (0.0-0.1); Basophils Percent Auto 1.6 % (0.2-1.2); Eosinophils Absolute Auto 0.4 K/mm3 (0-0.3); Eosinophils Percent Auto 6.7 % (0-4.4); Hematocrit 42.4 % (42.0-52.0); Hemoglobin 14.3 g/dL (14.0-18.0); Immature Granulocyte Absolute 0.02 K/mm3 (0.00-0.031); Immature Granulocyte Percent A 0.4 % (0-0.5); Lymphocytes Absolute Auto 2.19 K/mm3 (0.9-3.2); Lymphocytes Percent Auto 38.7 % (18.3-44.2); Mean Corpuscular HGB Conc 33.7 g/dl (32-36); Mean Corpuscular Hemoglobin 30.5 pg (26-34); Mean Corpuscular Volume 90.4 fl (80-100); Monocytes Absolute Auto 0.5 K/mm3 (0.1-0.6); Monocytes Percent Auto 8.7 % (2.6-8.5); Neutrophils Absolute Auto 2.5 K/mm3 (1.3-6.7); Neutrophils Percent Auto 43.9 % (45.5-73.1); Platelet Count Result 163 k/mm3 (150-375); Red Blood Count 4.69 M/mm3 (4.6-6.20); Red Cell Distribution Width 11.8 % (11.5-14.5); White Blood Count 5.7 K/mm3 (4.5-10.0)
[2020-08-07 06:30] LABS: Anion Gap 7 mmol/L (8-16); Blood Urea Nitrogen 13 mg/dL (9-20); Calcium 8.9 mg/dL (8.4-10.2); Carbon Dioxide 26 mmol/L (22-30); Chloride 108 mmol/L (98-107); Estimated CRCL calculation 75 ml/min; Estimated Glomerular Filt Rate > 60; Glucose 93 mg/dL (75-110); Potassium 3.8 mmol/L (3.4-5.0); Sodium 141 mmol/L (137-145)
[2020-08-07] MEDS: FENOFIBRATE,MICRONIZED 48 MG TABLET PO (11:43)
--- NOTE | 2020-08-07 12:12 | WPDURCON ---
Assessment and Plan Assessment and plan (1) Gross hematuria: Code(s): R31.0 - Gross hematuria Status: Acute Assessment and Plan: Clearing. Needs to continue Eliquis. No intervention needed at this time, but will likely need cystoscopy as outpatient with Dr. Sheriff if intervention is not needed for the stone. Encouraged continued hydration. No need to come back to ER for hematuria if passing urine well. FU with Dr. Sheriff this week. OK for discharge to home. (2) Ureteral stone with hydronephrosis: Code(s): N13.2 - Hydronephrosis with renal and ureteral calculous obstruction Status: Acute Assessment and Plan: Asymptomatic currently except for the hematuria which has cleared. Will need follow up with Dr. Sehriff. ESWL is not an option due to the anticoagulation for the recent PE. If stone becomes symptomatic, ureteroscopy with laser lithotripsy and stent may be needed. OK for discharge to home. Urology Consult Note HPI Date Seen: 08/07/20 Requesting Physician: Cassi Acosta DO Primary Care Provider: Phillip Oconnor, Consult Narrative Narrative: Apolinar Hernandez is a 55 year old male with hematuria. Started last night. On anticoagulation for a PE that was diagnosed last week. Voiding well. Urine has cleared. Restarted tamsulosin. I reviewed his scans. There is a 4mm right UPJ stone with mild hydronephrosis present. I reviewed his prior chest CT scan from earlier this month. The stone was in the kidney on the scan. He has no flank pain. No fevers or chills. Review of Systems Review of Systems: All systems reviewed & are unremarkable except as noted in HPI and below [facility] Past Medical History Medical History (Updated 08/07/20 @ 06:00 by Cassi Acosta DO) DVT of lower extremity, bilateral Hyperlipidemia Kidney stones Lung nodule, solitary Right lung nodule decreasing in size Pulmonary embolism Surgical History Surgical History (Updated 08/07/20 @ 01:12 by Cassi Acosta DO) History of lithotripsy (01/2020) Right renal stone Family History Family History (Updated 08/07/20 @ 07:29 by Cassi Acosta DO) Mother Diabetes mellitus His mother is still alive at 93 years old Hypertension Father , at 86 years old Malignant neoplasm of prostate Coronary artery disease Late onset Brain tumor Social History Social History (Updated 08/07/20 @ 05:29 by Cassi Acosta DO) Social History: He is . 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 He continues to exercise at on his bike frequently. 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 Gender identity (if verbalized by the patient): Male Sexual Orientation (if Verbalized by the Patient): Straight or Heterosexual Spiritual care concerns: No Meds Home Medications and Allergies Home Medications Medication Instructions Recorded Confirmed Type fenofibrate 54 mg PO QAM 04/06/19 08/07/20 History hydrocodone-acetaminophen 1 - 2 tablet PO Q6H PRN #20 tablet 01/22/20 08/07/20 Rx sulfamethoxazole-trimethoprim 1 tablet PO Q12H #6 tablet 01/22/20 08/07/20 Rx rivaroxaban [Xarelto] 30 mg PO DAILY 08/06/20 08/07/20 History Allergies Allergy/AdvReac Type Severity Reaction Status Date / Time aspirin Allergy Severe SWELLING Verified 01/22/20 07:59 morphine Allergy Severe HIVES Verified 01/22/20 07:59 Vital Signs Vital Signs - 24 hr 08/06/20 19:27 08/06/20 21:22 08/06/20 23:32 Temperature 36.4 C Pulse Rate 60 55 L 48 L Respiratory Rate 16 18 18 Blood Pressure 159/78 H 150/84 H 136/87 Pulse Oximetry 94 100 99 08/07/20 00:25 08/07/20 04:00 Temperature 37.1 C 36.7 C Pulse Rate 49 L 50 L Respiratory Rate 16 16 Blood Pressure 137/85 154/86 H Pulse Oxime
--- NOTE | 2020-08-07 12:47 | PM.DS ---
DS: Admitting Diagnosis Admitting Diagnosis Admitting Diagnosis: hematuria, kidney stone DS: Discharge Diagnosis Discharge Diagnosis (1) Ureteral stone with hydronephrosis: Code(s): N13.2 - Hydronephrosis with renal and ureteral calculous obstruction Status: Acute Assessment and Plan: Date of Admission 08/06/20 Date of Discharge 08/07/20 Mr. Hernandez is a 55yo M who presented to the ED for evaluation of gross hematuria. He had COVID-19 a few months ago and recently was diagnosed with DVT and PE, was started on Xarelto about [address] showed 4 mm right UPJ stone with minimal right hydronephrosis. Kidney function is normal. He was admitted for observation and urology consult. Urology recommends no intervention needed at this time since he needs to continue his Xarelto for VTE and he can follow up with Dr Sheriff outpatient. His hematuria resolved. He is hemodynamically stable for discharge and is eager for discharge 08/07/20. (2) Right renal stone: Code(s): N20.0 - Calculus of kidney Status: Acute (3) Gross hematuria: Code(s): R31.0 - Gross hematuria Status: Acute (4) Pulmonary embolism: Qualifiers: Pulmonary embolism type: multiple subsegmental (without acute cor pulmonale) Qualified Code(s): I26.94 - Multiple subsegmental pulmonary emboli without acute cor pulmonale Code(s): I26.99 - Other pulmonary embolism without acute cor pulmonale Status: Acute DS: Summary Hospital Course Hospital Course: See above. Time Spent with Patient Time attestation: Total time spent providing and/or coordinating discharge services: 35 minutes Exam Narrative: Exam Narrative: General: Male resting comfortably supine in bed in no acute distress. HEENT: Normocephalic, EOMI, oral mucosa moist. Cardiovascular: Rate and rhythm are regular. No notable murmur, rub, or gallop. Respiratory: Lungs clear to auscultation bilaterally. Respirations even and non-labored. Abdomen: Soft, non-tender, non-distended, bowel sounds present. Extremities: Peripheral pulses intact. No edema. Neuro: No focal neurological deficits. Speech is clear. DS: Data Data Completed and Pending Labs on day of discharge: Last Vital Signs Temp 98.1 F 08/07/20 04:00 Pulse 50 L 08/07/20 04:00 Resp 16 08/07/20 04:00 BP 154/86 H 08/07/20 04:00 Pulse Ox 100 08/07/20 04:00 ITS Impressions Chest/Abdomen/Pelvis CTA 08/06/20 21:15 IMPRESSION: Mild bilateral pulmonary thromboembolism 4 mm right ureteropelvic junction calculus with minimal right hydronephrosis Laboratory Tests 08/07/20 06:00 08/07/20 06:00 Discharge Plan Discharge Attending physician on discharge: Alejo Riley Consulting providers: Benson Mike ; Osiris Zapien ; Juan José Almeida Discharging Clinician: Osiris Zapien Anticipated Discharge Date/Time: 08/07/20 12:47 Patient Disposition: Home, Self-Care Activity: as tolerated Diet: as tolerated and regular Discharge Instructions: Call Dr Sheriff' office tomorrow to schedule a follow up appointment this week. Follow up with your account support manager regarding the test results of your recent hypercoagulability workup. Please call to schedule a hospital follow up appointment with your primary care provider in 1 to 2 weeks, sooner if you are feeling bad. Keep taking your Xarelto as prescribed, starting with your next scheduled dose this evening 08/07. Continue to monitor your symptoms and seek medical care right away if your illness is worsening. Return to ER if you have concerning symptoms including chest pain, feeling like you can't breathe, or persistent fevers > 101F. Patient Instructions: Rivaroxaban (By mouth), Kidney Stones (GEN), Hematuria (GEN) Stand Alone Forms: General Discharge Information Follow-up/Referrals: Tanner Sheriff MD [Physician] - Call for Appointment Anastasia,Phillip Muller MD [Primary Care Provi
== END 2020-08-07 13:10 | disposition home or self-care (01) ==
LOC: ANHED 22:24 → ANH3MEDSUR 08-07 12:55
PROVIDERS: Emergency Medicine; Admitting Provider Internal Medicine; Emergency Provider Nurse Practitioner; PCP Family Medicine Sports Medicine; Visit Provider Internal Medicine
DX: N13.2 Hydronephrosis with renal and ureteral calculous obstruction (principal); R31.0 Gross hematuria; I26.94 Multiple subsegmental thrombotic pulmonary emboli without acute cor pulmonale; I82.403 Acute embolism and thrombosis of unspecified deep veins of lower extremity, bilateral; R91.1 Solitary pulmonary nodule; Z79.01 Long term (current) use of anticoagulants; Z87.442 Personal history of urinary calculi
CPT/HCPCS: 36415; 71275; 74177; 80048; 80053; 81001; 85025; 85610; 85730; 96360; 96361; 99285; A9270; G0378; J7030; Q9967

== ENCOUNTER 2020-08-08 12:10 | Outpatient (CLI) | payer BC, SELFPAY ==
--- NOTE | ~2020-08-08 | XR_ITS ---
XR abdomen/kub 1V 08/08/2020 12:35 INDICATION: Right ureteral stone TECHNIQUE: KUB COMPARISON: 05/09/2020 FINDINGS: Bowel gas pattern is normal. Moderate colonic fecal loading. There is no evidence of free a ir, mass, organomegaly, ascites or obstruction. No abnormal calculi are seen. The bones appear inta ct. IMPRESSION: 1: No acute abdominal abnormality identified. Reviewed, dictated and finalized at location B.
== END 2020-08-08 12:11 | disposition home or self-care (01) ==
LOC: ANHIMG 12:16
PROVIDERS: PCP Family Medicine Sports Medicine; Visit Provider Urology
DX: N20.1 Calculus of ureter (principal)
CPT/HCPCS: 74018

== ENCOUNTER 2020-12-05 11:24 | Outpatient (CLI) | payer BC, SELFPAY ==
--- NOTE | ~2020-12-05 | XR_ITS ---
XR abdomen/kub 1V 12/05/2020 11:46 Indication: Lower abdominal pain. Procedure: KUB Comparison: Comparison to multiple prior studies sequentially, with oldest reviewed study dated 12/20. Findings: Nonobstructive bowel gas pattern. No abnormal calcifications. There are vascular calcificat ions in the pelvis. Lung bases unremarkable. No acute osseous abnormality. Impression: 1: Nonobstructive bowel gas pattern. Reviewed, dictated and finalized at location B. Impression: 1: Nonobstructive bowel gas pattern.
== END 2020-12-05 11:25 | disposition home or self-care (01) ==
LOC: ANHIMG 11:31
PROVIDERS: PCP Internal Medicine; Visit Provider Urology
DX: Z87.442 Personal history of urinary calculi (principal)
CPT/HCPCS: 74018

== ENCOUNTER 2021-05-16 10:02 | Outpatient (CLI) | payer BC, SELFPAY ==
--- NOTE | ~2021-05-16 | US_ITS ---
EXAMINATION: US venous doppler [facility] EXAM DATE: 05/16/2021 11:00 INDICATION: Known DVT of proximal vein bilateral lower extremities. TECHNIQUE: Multiple grayscale, color flow and Doppler images of the lower extremity deep venous syste ms bilaterally were obtained and reviewed. There is no prior study for comparison. FINDINGS: RIGHT SIDE Common femoral: -------- Normal. Profunda femoral: ------- Normal. Femoral: Nonocclusive thrombus. Popliteal: Nonocclusive thrombus. Posterior tibial: --------- Normal. Peroneal: Normal. Gastrocnemius: Normal. Soleus: Not visualized. Greater saphenous: ----- Normal. Lesser saphenous: ------ Not visualized. LEFT SIDE Common femoral: -------- Normal. Profunda femoral: ------- Normal. Femoral: Normal. Popliteal: Normal. Posterior tibial: --------- Normal. Peroneal: Normal. Gastrocnemius: Normal. Soleus: Not visualized. Greater saphenous: ----- Normal. Lesser saphenous: ------ Not visualized. IMPRESSION: Nonocclusive right femoral, popliteal DVT. Reviewed, dictated and finalized at location B.
== END 2021-05-16 10:03 | disposition home or self-care (01) ==
PROVIDERS: PCP Internal Medicine; Visit Provider Internal Medicine Medical Oncology
DX: I82.411 Acute embolism and thrombosis of right femoral vein (principal)
CPT/HCPCS: 93970

== ENCOUNTER 2021-08-14 09:27 | Outpatient (CLI) | payer BC, SELFPAY ==
--- NOTE | ~2021-08-14 | US_ITS ---
EXAMINATION: US venous doppler LE RT DATE: 08/14/2021 10:00 INDICATION: Deep venous thrombosis TECHNIQUE: Neely scale images without and with compression and Doppler images of the right lower extre mity veins were obtained. COMPARISON: 05/16/2021 FINDINGS: There is persistent nonocclusive thrombosis of the right femoral and popliteal veins. The r ight common femoral vein, profunda femoral vein, peroneal trunk, posterior tibial veins, and greater saphenous vein are patent. IMPRESSION: 1. Persistent nonocclusive thrombosis of the right femoral and popliteal veins. Reviewed, dictated and finalized at location A.
== END 2021-08-14 09:28 | disposition home or self-care (01) ==
PROVIDERS: PCP Internal Medicine; Visit Provider Internal Medicine Medical Oncology
DX: I82.411 Acute embolism and thrombosis of right femoral vein (principal); I82.431 Acute embolism and thrombosis of right popliteal vein
CPT/HCPCS: 93971

== ENCOUNTER → 2021-11-07 14:51 | Outpatient (CLI) | payer BC, SELFPAY ==
--- NOTE | ~2021-11-07 | US_ITS ---
EXAMINATION:US venous doppler LE RT INDICATION:Follow-up deep venous thrombosis TECHNIQUE: Multiple grayscale, color flow and Doppler images of the right lower extremity deep venous systems were obtained and reviewed. COMPARISON:08/14/2021 FINDINGS: The superficial femoral demonstrate normal respiratory variation, augmentation and compress ibility. There is deep venous thrombosis of the right distal femoral and popliteal veins, unchanged f rom prior study. Color flow is also seen within the posterior tibial, peroneal, greater saphenous and profunda veins. IMPRESSION: 1: Chronic deep venous thrombosis of the right distal femoral and popliteal veins. Reviewed, dictated and finalized at location A. IMPRESSION: 1: Chronic deep venous thrombosis of the right distal femoral and popliteal vei shital.
== END ==
PROVIDERS: PCP Internal Medicine; Visit Provider Internal Medicine Medical Oncology
DX: I82.431 Acute embolism and thrombosis of right popliteal vein (principal); I82.411 Acute embolism and thrombosis of right femoral vein
CPT/HCPCS: 93971

== ENCOUNTER 2024-07-22 10:30 | Emergency (ER) | payer BC, SELFPAY ==
--- OUTSIDE RECORDS SUMMARY | 2024-07-22 10:35 | XMS_ITS | Clinical Summary ---
Author Organization [facility] [place] [address] Address [address] [place] [phone] Care Team Providers Care Technical Operator Name Role Phone Rex Matute MD Primary Care Provider [phone] Darwin Diaz DO Unavailable [phone] Allergies Active Allergy Reactions Criticality Noted Date Comments Aspirin Swelling Medium 10/23/2019 Morphine Swelling Medium 09/21/2020 Medications lisinopriL (PRINIVIL,ZESTR IL) 10 mg tablet Take 1 tablet (10 mg total) by mouth daily 01/13/2021 Active rosuvastatin (CRESTOR) 10 mg tablet 08/12/2021 Active icosapent ethyL (VASCEPA) 1 gram capsule 2 capsules (2 g total) 10/19/2021 Active magnesium oxide (MAG-OX) 400 mg (241.3 mg elemental magnesium) tablet Take 2 tablets (800 mg total) by mouth daily 05/28/2022 Active Active Problems Problem Noted Date Diagnosed Date History of DVT of lower extremity 12/07/2021 Assessment & Plan (12/27/2021 2:45 PM [employer] TECHNICAL LEAD SENIOR DEVELOPER): I had a long discussion with the patient regarding his duplex finding, evidence of chronic deep vein thrombosis in bilateral lower extremities, given he has been on anticoagulation for roughly 2 years for a provoked DVT we discussed the medical recommendation for anticoagulation for 3-6 months after which if he has no underlying hypercoagulable state or large family history can safely come off blood thinners. We discussed if he has another episode of thrombosis while off blood thinners the recommendation would be anticoagulation for life. He is having some right lower extremity edema, we discussed postthrombotic syndrome and I discussed the importance of compression therapy. He can follow-up p.r.n.. Assessment & Plan (12/07/2021 12:18 PM CDT): Impression: Patient has a history of bilateral lower extremity DVTs and PE in July 2021. He is currently on Xarelto. He is currently being seen by Hemotology, Dr. Diaz. Venous Duplex performed at an outside facility showed chronic DVT to the right femoral and popliteal vein. He denies edema and pain. Plan: Recommend Compression therapy. Prescription for medical grade compression stockings given to patient. Patient to follow-up in 2 weeks for re-evaluation with bilateral lower extremity venous duplex. 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 Patient is currently on antihypertensive medications. Blood pressure is controlled. Plan: Continue blood pressure management as per primary care provider. Mixed hyperlipidemia 10/17/2020 Assessment & Plan (12/27/2021 2:42 PM CENTUR[employer] TECHNICAL LEAD SENIOR DEVELOPER): Crestor Assessment & Plan (12/07/2021 11:10 AM CDT): Impression: Patient recently diagnosed with hyperlipidemia. He is currently on a statin therapy. Plan: Continue statin therapy as per primary care provider. Secondary hypercoagulable state 09/21/2020 Overview (04/17/2021): On Xarelto. Currently following with Hematology Dr Jagjit Bledsoe. Stable and tolerating current dose. Noted prior extensive negative work up History of PE and DVT. Resolved Problems Problem Noted Date Diagnosed Date Resolved Date Personal history of diseases of blood and blood-forming organs 04/12/2021 04/12/2021 Surgical History Surgery Date Site/Laterality Comments COLONOSCOPY Medical History Medical History Date Comments Kidney stones DVT (deep venous thrombosis) (HCC) Hypertension Family History Medical History Relation Name Comments Alzheimer's disease Father Brain cancer Father Heart disease Father Prostate cancer Father Diabetes Mother Hypertension Mother Relation Name Status Comments Brother Alive Father (Age 85) Mother Alive Social History Tobacco Use Types Packs/Day Years Used Date Smoking Tobacco: Never Smokeless Tobacco: Never Tobacco Cessation:Counseling Given: Not Answered AUDIT-C Answer Date Recorded Q1: How often do you have a drink containing alc ohol? Never 04/30/2021 Average Number of Drinks Not on file 022 Q3: How often do you have si x or more drinks on one occasion? 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 Not on file Not on file Not on file Obstetrics History Last Filed Vital Signs Vital Sign Reading Time Taken Comments Blood Pressure 158/93 11/14/2022 4:01 PM CDT Pulse 50 11/14/2022 4:01 PM CDT Temperature 36.6 C (97.9 F) 11/14/2022 4:01 PM CDT Respiratory Rate 18 11/14/2022 4:01 PM CDT Oxygen Saturation 100% 11/14/2022 4:0 1 PM CDT Inhaled Oxygen Concentration - - Weight 80.8 kg (178 lb 3.2 oz) 11/15/19 23 4:01 PM CDT with shoes Height 185.4 cm (6' 1) 11/14/2022 4:01 PM CDT Body Mass Index 23.51 11/14/2022 4:01 PM CDT Plan of Treatment Health Maintenance Due Date Last Done Comments Colon Cancer Screening-Colonoscopy 1965 Depression Screening 1965 Hepatitis C Screening 1965 Prostate Cancer Screening-PSA 1965 DTaP/Tdap/Td Vaccine (1 - Tdap) 01/19/1975 Hepatitis B Screening 01/19/1982 Regular Well Visit/Exam 18-64 01/19/1982 Zoster Vaccine (1 of 2) 01/19/2014 Influenza Vaccine (Season Ended) 2024 Pneumococcal vaccine <65 Aged Out No longer eligible based on patient's age to complete this topic Insurance [employer] [place] [employer] [place] Care Teams Technical Operator Relationship Specialty Start Date End Date Rex Matute MD [address] [place] [address] PCP - General Internal Medicine 11/08/20 Darwin Diaz DO [address] [place] [address] MEDICAL ONCOLOGY, [address] [address] Medical Oncologist/Acquisition Professional Hematology and Oncology 08/15/22
--- OUTSIDE RECORDS SUMMARY | 2024-07-22 10:35 | XMS_ITS | Continuity of Care Document ---
Author Organization [facility] Address [address] [place] [address] Phone Care Team Providers Care Grape Pruner Name Role Phone Devon Lang MD Unavailable Unavailable Advance Directives Directive Yes / No Effective Date File Name No Information Encounters Encounter Description Practice Location Reason(s) For Visit Diagnoses Date Provider Providers Copied on Encounter [facility], [address], [place], [place], [id number], [place] tel:[phone] [place] No Information Rickey Osorio. [address] [place] [address], [id number], . tel:[phone] Family History Family Member Type Diagnosis Age At Onset No Information Payers Payer name Insurance type Covered green party ID Authoriza tion(s) No Information Social History [...]
--- OUTSIDE RECORDS SUMMARY | 2024-07-22 10:35 | XMS_ITS | Referral Summary ---
Author Organization [facility] [place] [address] Address [address] [place] [id number] Care Team Providers Care Tanker Truck Driver Name Role Phone Rex Matute MD Primary Care Provider [phone] Darwin Diaz DO Unavailable [phone] Allergies Active Allergy Reactions Criticality Noted Date [...] 12/07/2021 Assessment & Plan (12/27/2021 2:45 PM SANDWICH BOARD CARRIER): I had a long discussion with the [...] 12/07/2020 Assessment & Plan (12/27/2021 2:42 PM SANDWICH BOARD CARRIER): Lisinopril Assessment & Plan (12/07/2021 11:10 AM CDT): Impression: Patient newly diagnosed with hypertension. Patient is currently on antihypertensive medications. Blood pressure is controlled. Plan: Continue blood pressure management as per primary care provider. 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 Not on file Not on file Last Filed Vital Signs Vital Sign Reading Time Taken Comments Blood Pressure 158/93 11/14/2022 4:01 PM CDT Pulse 50 11/14/2022 4:01 PM CDT Temperature 36.6 C (97.9 F) 11/14/2022 4:01 PM CDT Respiratory Rate 18 11/14/2022 4:01 PM CDT Oxygen Saturation 100% 11/14/2022 4:0 1 PM CDT Inhaled Oxygen Concentration - - Weight 80.8 kg (178 lb 3.2 oz) 11/15/19 4:01 PM CDT with shoes Height 185.4 cm (6' 1) 11/14/2022 4:01 PM CDT Body Mass Index 23.51 11/14/2022 4:01 PM CDT Plan of Treatment Not on file Insurance [facility] [place] Care Teams Tanker Truck Driver Relationship Specialty Start Date End Date Rex Matute MD [address] [place] [address] PCP - General Internal Medicine 11/08/20 Darwin Diaz DO [address] [place] [place] [address] MEDICAL ONCOLOGY, [facility] [address] [place] [address] Medical Oncologist/Milk Receiver Hematology and Oncology 08/15/22
[2024-07-22 10:44] VITALS: BP 150/86; PULSE 55; RESP 16; TEMP 36.4; O2SAT 100
--- NOTE | 2024-07-22 11:14 | ECG_ITS ---
Test Date: 2024-07-22 11:19:55 Measurements Intervals [place] Rate: 49 P: 80 NH: 288 QRS: 73 QRSD: 99 T: 44 QT: 437 QTc: 395 Interpretive Statements SINUS BRADYCARDIA WITH SINUS ARRHYTHMIA WITH FIRST DEGREE AV BLOCK INCOMPLETE RIGHT BUNDLE BRANCH BLOCK PEAKED T WAVES- CONSIDER HYPERKALEMIA BASELINE ARTIFACT- I, II, AVR, AVL ABNORMAL ECG No previous ECG available for comparison Electronically Signed On 07-22-2024 11:41:46 CDT by Roge Abreu D.O.
[2024-07-22 11:15] VITALS: PULSE 54; O2SAT 100
[2024-07-22 11:16] VITALS: BP 147/94; PULSE 62; RESP 16; O2SAT 99
[2024-07-22 11:43] LABS: Basophils Absolute Auto 0.1 K/mm3 (0.0-0.1); Basophils Percent Auto 1.1 % (0.2-1.2); Eosinophils Absolute Auto 0.3 K/mm3 (0-0.3); Eosinophils Percent Auto 4.2 % (0-4.4); Hematocrit 48.7 % (42.0-52.0); Hemoglobin 16.3 g/dL (14.0-18.0); Immature Granulocyte Absolute 0.04 K/mm3 (0.00-0.031); Immature Granulocyte Percent A 0.6 % (0-0.5); Lymphocytes Absolute Auto 1.43 K/mm3 (0.9-3.2); Lymphocytes Percent Auto 19.9 % (18.3-44.2); Mean Corpuscular HGB Conc 33.5 g/dl (32-36); Mean Corpuscular Hemoglobin 31.4 pg (26-34); Mean Corpuscular Volume 93.8 fl (80-100); Mean Platelet Volume 10.3 fl (7.4-10.4); Monocytes Absolute Auto 0.5 K/mm3 (0.1-0.6); Monocytes Percent Auto 6.4 % (2.6-8.5); Neutrophils Absolute Auto 4.9 K/mm3 (1.3-6.7); Neutrophils Percent Auto 67.8 % (45.5-73.1); Platelet Count Result 154 k/mm3 (150-375); Red Blood Count 5.19 M/mm3 (4.6-6.20); Red Cell Distribution Width 11.6 % (11.5-14.5); White Blood Count 7.2 K/mm3 (4.5-10.0)
--- NOTE | 2024-07-22 11:50 | ED_ITS ---
HPI - Chest Pain General Chief Complaint: Chest Pain <Vijaya Vivar PA-C - Last Filed: 07/22/24 18:33> Stated Complaint: heart sensation not pain, got ekg said to go to ed <MIKKI Boswell - Last Filed: 07/22/24 18:33> Time Seen by Provider: 07/22/24 11:33 <Vijaya Vivar PA-C - Last Filed: 07/22/24 18:33> History of Present Illness HPI narrative: 59-year-old male with history of hypertension, hyperlipidemia, remote history of PE provoked by COVID presents to the emergency department for burning in his chest that occurred at 8:30 a.m. this morning and lasted 50 minutes. Patient states he was sitting at work and in meetings when he began having a burning sensation in the left side of his chest that felt like heartburn. Patient states he went to the nurse at work, had an EKG performed which showed bradycardia and first-degree AV block and was found to be hypotensive in the 90s systolic. He was advised to come to the emergency department. Upon my evaluation the patient states his symptoms have resolved. He denies radiating symptoms, shortness of breath, cough or congestion, hemoptysis, fever, abdominal pain, lower extremity edema, recent surgeries or hospitalizations, associated lightheadedness or dizziness. States he had to a eggs and lemonade and water for breakfast. He was discontinued off of his Xarelto for previous PE. States he does have intermittent episodes of the dizziness since he restarted his 5 mg of lisinopril last . He had an episode last night while driving. States he takes his blood pressure and notes it to be low at times in the 90 systolic. He notes that he was off of his lisinopril for about 5 months because he developed intermittent episodes of hypotension and associated dizziness. He restarted his lisinopril last per his PCP's recommendation after having an elevated blood pressure in office. He states his heart rate normally runs in the 50s. He does not smoke. States his father history of CABG in his brother had to have an ablation for an arrhythmia. He denies exertional symptoms. <Vijaya Vivar PA-C - Last Filed: 07/22/24 18:33> Related Data Home Medications: Home Medications ?Medication ?Instructions ?Recorded ?Confirmed ?Last Taken ?Type fenofibrate 54 mg tablet 54 mg PO QAM 04/06/19 08/07/20 01/20/20 History rivaroxaban 15 mg tablet (Xarelto) 15 mg PO BID 08/06/20 08/07/20 Unknown History <Vijaya Vivar PA-C - Last Filed: 07/22/24 18:33> Allergies/Adverse Reactions: Allergies Allergy/AdvReac Type Severity Reaction Status Date / Time aspirin Allergy Severe SWELLING Verified 01/22/20 07:59 morphine Allergy Severe HIVES Verified 01/22/20 07:59 <Vijaya Vivar PA-C - Last Filed: 07/22/24 18:33> Review of Systems 2 Review of Systems: All systems reviewed & are unremarkable except as noted in HPI and below <Vijaya Vivar PA-C - Last Filed: 07/22/24 18:33> [facility] Past Medical History Medical History: Medical History DVT of lower extremity, bilateral Lung nodule, solitary Right lung nodule decreasing in size Pulmonary embolism Kidney stones Hyperlipidemia <Vijaya Vivar PA-C - Last Filed: 07/22/24 18:33> Surgical History Surgical History: Surgical History History of lithotripsy (01/2020) Right renal stone <Vijaya Vivar PA-C - Last Filed: 07/22/24 18:33> Family History Family History: Family History Mother Diabetes mellitus His mother is still alive at 93 years old Hypertension Father , at 86 years old Malignant neoplasm of prostate Coronary artery disease Late onset Brain tumor <Vijaya Vivar PA-C - Last Filed: 07/22/24 18:33> Social History Social History: Social History Social History: He is . 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 league. He continues to exercise at on his bike frequently. 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 Resting comfortably in exam bed HEAD: Normocephalic, atraumatic. EYES: EOMI. ENT: Nares clear, no rhinorrhea or epistaxis. Mucous membranes moist. NECK: Supple. CHEST: Clear to auscultation. No respiratory distress. HEART: Regular rate and rhythm. No murmur heard. Normal peripheral pulses. ABDOMEN: Soft, nontender, nondistended, normal active bowel sounds. EXTREMITIES: Normal range of motion. No edema. Negative Homans bilaterally SKIN: Warm, dry, no rash. NEURO: No focal deficits. Alert and oriented x3 <Vijaya Vivar PA-C - Last Filed: 07/22/24 18:33> Course BAR MACHINE OPERATOR/PA Physician Supervision I agree with midlevel documentation; I performed the medical decision making component of this evaluation. Patient very well-appearing here, normal vital signs, normal labs including negative troponin, patient declined chest x-ray, ambulatory vital signs normal. I do agree likely stable for discharge with follow-up and return precautions < Leslie Mendez MD - Last Filed: 07/22/24 16:45> Vital Signs Vital signs: Vital Signs Temperature 97.6 F 07/22/24 10:44 Pulse Rate 55 L 07/22/24 10:44 Respiratory Rate 16 07/22/24 10:44 Blood Pressure 150/86 H 07/22/24 10:44 Pulse Oximetry 100 07/22/24 10:44 Temperature 97.6 F 07/22/24 10:44 Pulse Rate 57 L 07/22/24 13:19 Respiratory Rate 16 07/22/24 11:16 Blood Pressure 142/86 H 07/22/24 13:19 Pulse Oximetry 99 07/22/24 11:16 Oxygen Delivery Room Air 07/22/24 11:15 <Vijaya Vivar PA-C - Last Filed: 07/22/24 18:33> Vital Signs Temperature 97.6 F 07/22/24 10:44 Pulse Rate 55 L 07/22/24 10:44 Respiratory Rate 16 07/22/24 10:44 Blood Pressure 150/86 H 07/22/24 10:44 Pulse Oximetry 100 07/22/24 10:44 Temperature 97.6 F 07/22/24 10:44 Pulse Rate 57 L 07/22/24 13:19 Respiratory Rate 16 07/22/24 11:16 Blood Pressure 142/86 H 07/22/24 13:19 Pulse Oximetry 99 07/22/24 11:16 Oxygen Delivery Room Air 07/22/24 11:15 <Leslie Mendez MD - Last Filed: 07/22/24 16:45> MDM - Chest Pain MDM Narrative Medical decision making narrative: 59-year-old male with a remote history of PE not on anticoagulants, hypertension and hyperlipidemia presents to the ED for an episode of chest burning that started at 8:30 a.m. this morning while at work. Upon arrival to the ED patient is asymptomatic. He is also endorsing intermittent lightheadedness and episodes of hypotension. He recently restarted his lisinopril after having an elevated blood pressure reading and his PCP's office on . He states while he was off of his lisinopril for 5 months he did not have any lightheadedness. Arrival to the ED patient's blood pressure is 150/86 with heart rate of 55. States his heart rate normally runs in the 50s. He is resting comfortably in exam bed. EKG shows sinus bradycardia a rate of 49 ppm, sinus rhythm and first-degree AV block with a WA interval of 288, normal QRS duration, normal QTC, no ischemic changes. T-waves are peaked which is consistent with prior EKG reading (actual EKG tracing is unable to be viewed). Troponin is undetectable. CBC without leukocytosis or anemia. Chemistries with elevated BUN of 24, normal creatinine. Fluids provided. No hyperkalemia. Magnesium within normal limits. Lipase within normal limits. D-dimer within normal limits, wells score is low risk. Orthostatic vital signs negative. Pt has had bradycardia in the ED however he states this is not abnormal, his BP have remained stable, and he is ambulatory in the ED with a steady gait and appropriate increase in HR to 70s and no dizziness. Pt declined chest xray. States he does not feel it was necessary. I did discuss the purpose of the chest x-ray and need for evaluating further cardiopulmonary disease. Patient verbalizes he understands my reasoning, however would not like the chest x-ray. Patient updated on results. Heart score is 3. I suspect GERD as source of reported burning to chest today, offered Pepcid however pt declined.Will provide GI f/u. I do feel it is reasonable to provide f/u with cardiology as well. Additionally, I advised that he d/c his lisinopril and continue to take daily BP log and f/u with his PCP. Discussed strict ED return precautions. He is agreeable with the plan verbalized understanding. All questions answered. Patient remains asymptomatic. Discharged in stable condition. <Vijaya Vivar PA-C - Last Filed: 07/22/24 18:33> Lab Data Result diagrams: 07/22/24 11:22 07/22/24 11:22 <Vijaya Vivar PA-C - Last Filed: 07/22/24 18:33> Labs: Lab Results 07/22/24 07/22/24 Range/Units 11:20 11:22 WBC 7.2 (4.5-10.0) K/mm3 RBC 5.19 (4.6-6.20) M/mm3 Hgb 16.3 (14.0-18.0) g/dL Hct 48.7 (42.0-52.0) % MCV 93.8 (80-100) fl MCH 31.4 (26-34) pg MCHC 33.5 (32-36) g/dl RDW 11.6 (11.5-14.5) % Plt Count 154 (150-375) k/mm3 MPV 10.3 (7.4-10.4) fl Immature Gran % (Auto) 0.6 H (0-0.5) % Neut % (Auto) 67.8 (45.5-73.1) % Lymph % (Auto) 19.9 (18.3-44.2) % Winona % (Auto) 6.4 (2.6-8.5) % Eos % (Auto) 4.2 (0-4.4) % Baso % (Auto) 1.1 (0.2-1.2) % Lymph # (Auto) 1.43 (0.9-3.2) K/mm3 Winona # (Auto) 0.5 (0.1-0.6) K/mm3 Eos # (Auto) 0.3 (0-0.3) K/mm3 Baso # (Auto) 0.1 (0.0-0.1) K/mm3 Abs Immat Gran (auto) 0.04 H (0.00-0.031) K/mm3 Absolute Neuts (auto) 4.9 (1.3-6.7) K/mm3 Absolute Nucleated RBC 0.000 (0.0-0.012) K/mm3 Nucleated RBC % 0.0 (0.0-0.2) % PT 14.3 (11.1-14.7) Seconds INR 1.1 APTT 27.3 (22.3-36.8) Seconds D-Dimer 0.34 (<0.48) ug/mL Sodium 137 (137-145) mmol/L Potassium 4.5 (3.4-5.0) mmol/L Chloride 103 (98-107) mmol/L Carbon Dioxide 28 (22-30) mmol/L Anion Gap 6 (4-12) mmol/L BUN 24 H D (9-20) mg/dL Creatinine 1.26 (0.7-1.3) mg/dL Estim Creat Clear Calc 61 ml/min Estimated GFR 58 L (59 - ) Glucose 84 (65-110) mg/dL Calcium 9.3 (8.4-10.2) mg/dL Magnesium 2.2 (1.6-2.3) mg/dL Total Bilirubin 0.9 (0.2-1.3) mg/dL AST 26 (17-59) U/L ALT 16 (6-50) U/L Alkaline Phosphatase 76 (38-126) U/L Troponin I < 0.012 (0.000-0.034) ng/mL NT-Pro-B Natriuret Pep 40 (19.9-100) pg/mL Total Protein 7.8 (6.3-8.2) g/dL Albumin 4.2 (3.5-5.1) g/dL Lipase 138 (23-300) U/L <Vijaya Vivar PA-C - Last Filed: 07/22/24 18:33> Lab Results 07/22/24 07/22/24 Range/Units 11:20 11:22 WBC 7.2 (4.5-10.0) K/mm3 RBC 5.19 (4.6-6.20) M/mm3 Hgb 16.3 (14.0-18.0) g/dL Hct 48.7 (42.0-52.0) % MCV 93.8 (80-100) fl MCH 31.4 (26-34) pg MCHC 33.5 (32-36) g/dl RDW 11.6 (11.5-14.5) % Plt Count 154 (150-375) k/mm3 MPV 10.3 (7.4-10.4) fl Immature Gran % (Auto) 0.6 H (0-0.5) % Neut % (Auto) 67.8 (45.5-73.1) % Lymph % (Auto) 19.9 (18.3-44.2) % Winona % (Auto) 6.4 (2.6-8.5) % Eos % (Auto) 4.2 (0-4.4) % Baso % (Auto) 1.1 (0.2-1.2) % Lymph # (Auto) 1.43 (0.9-3.2) K/mm3 Winona # (Auto) 0.5 (0.1-0.6) K/mm3 Eos # (Auto) 0.3 (0-0.3) K/mm3 Baso # (Auto) 0.1 (0.0-0.1) K/mm3 Abs Immat Gran (auto) 0.04 H (0.00-0.031) K/mm3 Absolute Neuts (auto) 4.9 (1.3-6.7) K/mm3 Absolute Nucleated RBC 0.000 (0.0-0.012) K/mm3 Nucleated RBC % 0.0 (0.0-0.2) % PT 14.3 (11.1-14.7) Seconds INR 1.1 APTT 27.3 (22.3-36.8) Seconds D-Dimer 0.34 (<0.48) ug/mL Sodium 137 (137-145) mmol/L Potassium 4.5 (3.4-5.0) mmol/L Chloride 103 (98-107) mmol/L Carbon Dioxide 28 (22-30) mmol/L Anion Gap 6 (4-12) mmol/L BUN 24 H D (9-20) mg/dL Creatinine 1.26 (0.7-1.3) mg/dL Estim Creat Clear Calc 61 ml/min Estimated GFR 58 L (59 - ) Glucose 84 (65-110) mg/dL Calcium 9.3 (8.4-10.2) mg/dL Magnesium 2.2 (1.6-2.3) mg/dL Total Bilirubin 0.9 (0.2-1.3) mg/dL AST 26 (17-59) U/L ALT 16 (6-50) U/L Alkaline Phosphatase 76 (38-126) U/L Troponin I < 0.012 (0.000-0.034) ng/mL NT-Pro-B Natriuret Pep 40 (19.9-100) pg/mL Total Protein 7.8 (6.3-8.2) g/dL Albumin 4.2 (3.5-5.1) g/dL Lipase 138 (23-300) U/L <Leslie Mendez MD - Last Filed: 07/22/24 16:45> Discharge Plan Discharge Clinical Impression: Atypical chest pain, Bradycardia, sinus <Vijaya Vivar PA-C - Last Filed: 07/22/24 18:33> Patient Disposition: Home <Vijaya Vivar PA-C - Last Filed: 07/22/24 18:33> Condition: Stable <Vijaya Vivar PA-C - Last Filed: 07/22/24 18:33> Instructions: Antibiotic Form, Chest Pain (ED), Bradycardia (ED) <Vijaya Vivar PA-C - Last Filed: 07/22/24 18:33> Additional Instructions: You were evaluated in the emergency department for chest pain. Your workup here is reassuring. He did decline a chest x-ray so I was unable to evaluate for sources of chest pain such as pneumonia, normal heart size, pneumothorax, esophageal rupture, etc.. Your lisinopril may be causing you to experience dizziness. Please stop taking this medication. Drink plenty of fluids. Continue taking your blood pressure daily and follow-up closely with your primary care provider. I have also provided referrals for Cardiology and GI. Return to the emergency department if you develop worsening or changing pain, shortness of breath, dizziness or lightheadedness, loss of consciousness, or other concerning symptoms. <Vijaya Vivar PA-C - Last Filed: 07/22/24 18:33> Patient Language: Haitian <Vijaya Vivar PA-C - Last Filed: 07/22/24 18:33> Prescriptions: No Action fenofibrate 54 mg tablet 54 mg PO QAM hydrocodone-acetaminophen 5-325 mg tablet 1 - 2 tablet PO Q6H PRN (Reason: pain) Qty: 20 0RF Xarelto 15 mg tablet 15 mg PO BID <Vijaya Vivar PA-C - Last Filed: 07/22/24 18:33> Follow-up/Referrals: Anette,Jamil Muller MD [Primary Care Provider] - Lacy Waite MD [Physician] - Alexx Clarke MD [Physician] - <Vijaya Vivar PA-C - Last Filed: 07/22/24 18:33>
[2024-07-22 11:51] LABS: Alanine Aminotransferase 16 U/L (6-50); Albumin Level 4.2 g/dL (3.5-5.1); Alkaline Phosphatase 76 U/L (38-126); Anion Gap 6 mmol/L (4-12); Aspartate Amino Transferase 26 U/L (17-59); Bilirubin,Total 0.9 mg/dL (0.2-1.3); Blood Urea Nitrogen 24 mg/dL (9-20); Calcium 9.3 mg/dL (8.4-10.2); Carbon Dioxide 28 mmol/L (22-30); Chloride 103 mmol/L (98-107); Estimated CRCL calculation 61 ml/min; Estimated Glomerular Filt Rate 58; Glucose 84 mg/dL (65-110); Lipase 138 U/L (23-300); Potassium 4.5 mmol/L (3.4-5.0); Sodium 137 mmol/L (137-145); Total Protein 7.8 g/dL (6.3-8.2)
[2024-07-22 12:00] LABS: INR 1.1; Partial Thromboplastin Time 27.3 Seconds (22.3-36.8); Prothrombin Time 14.3 Seconds (11.1-14.7)
[2024-07-22 12:04] LABS: Troponin I < 0.012 ng/mL (0.000-0.034)
--- OUTSIDE RECORDS SUMMARY | 2024-07-22 12:08 | XMS_ITS | Continuity of Care Document ---
Author Organization [facility] Address [address] [place] [address] Phone Care Team Providers Care Summer Nanny Name Role Phone Devon Lang MD Unavailable Unavailable Advance Directives Directive Yes / No Effective Date File Name No Information Encounters Encounter Description Practice Location Reason(s) For Visit Diagnoses Date Provider Providers Copied on Encounter [facility], [address], [place], [place], [id number], [place] tel:[phone] [place] No Information Rickey Osorio. [address] [place] [address], [id number], . tel:[phone] Family History Family Member Type Diagnosis Age At Onset No Information Payers Payer name Insurance type Covered alliance party ID Authoriza tion(s) No Information Social [...]
--- OUTSIDE RECORDS SUMMARY | 2024-07-22 12:08 | XMS_ITS | Clinical Summary ---
Author Organization [facility] Address [address] [place] [address] Care Team Providers Care High [employer] Art Teacher Name Role Phone Phillip Oconnor MD Primary Care Provider [phone] Allergies Active Allergy Reactions Criticality Noted Date Comments Aspirin Swelling Low 09/21/2020 Morphine Swelling Low 09/21/2020 Medications fenofibrate (LOFIBRA) 54 mg TAKE 1 TABLET BY MOUTH EVERY DAY 06/15/2020 Active Xarelto 20 mg Tablet TAKE 1 TABLET BY MOUTH EVERY EVENING WITH DINNER FOR 2 DAYS 30 Tablet 3 09/21/2020 Active Active Problems Problem Noted Date Diagnosed Date Secondary hypercoagulable state 09/21/2020 Family History Medical History Relation Name Comments Cancer Father Heart Disease Father Healthy Son 1 Healthy Son 2 Healthy Son 3 Relation Name Status Comments Brother Alive Father Mother Alive Son 1 Alive Son 2 Alive Son 3 Alive Social History Tobacco Use Types Packs/Day Years Used Date Smoking Tobacco: Never Smokeless Tobacco: Never Alcohol Use Standard Drinks/Week Comments Never 0 (1 standard drink = 0.6 oz pur e alcohol) Sex and Gender Information Value Date Recorded Sex Assigned at Not on file Legal Sex Male 1:52 PM CDT Gender Identity Not on file Sexual Orientation Not on file Last Filed Vital Signs Vital Sign Reading Time Taken Comments Blood Pressure 144/85 09/21/2020 3:01 PM CDT Pulse 51 09/21/2020 3:01 PM CDT Temperature 36.9 C (98.5 F) 09/21/2020 3:01 PM CDT Respiratory Rate - - Oxygen Saturation 97% 09/21/2020 3:01 PM CDT Inhaled Oxygen Concentration - - Weight 78.7 kg (173 lb 8 oz) 09/21/2020 3:01 PM CDT Height 185.4 cm (6' 1) 09/21/2020 3:01 PM CDT Body Mass Index 22.89 09/21/2020 3:01 PM CDT Plan of Treatment Health Maintenance Due Date Last Done Comments DTAP/TDAP/TD VACCINES (1 - Tdap) 01/19/1983 COLORECTAL SCREENING 01/19/2009 Colorectal Cancer Screening 01/19/2009 FIT-DNA Q 3 years 01/19/2009 FIT/FOBT Q 1 year 01/19/2009 Flex Sig/CT Colonography Q 5 years 01/19/2009 ZOSTER VACCINE (1 of 2) 01/19/2014 INFLUENZA VACCINE (#1) 2023 RSV VACCINE (60+ or ) (1 - 1-dose 75+ series) 01/19/2039 HEPATITIS B VACCINES Aged Out No long er eligible based on patient's age to complete this topic Insurance [facility] Care Teams High School Art Teacher Relationship Specialty Start Date End Date Phillip Oconnor MD [facility] [place] [phone] PCP - General Family Practice 09/21/20
--- OUTSIDE RECORDS SUMMARY | 2024-07-22 12:08 | XMS_ITS | Clinical Summary ---
Author Organization [facility] [address] Address [address] [place] [id number] Care Team Providers Care Station Chief Name Role Phone Rex Matute MD Primary Care Provider [phone] Darwin Diaz DO Unavailable [phone] Allergies Active Allergy Reactions Criticality Noted Date [...] 12/07/2021 Assessment & Plan (12/27/2021 2:45 PM FIELD CAPTAIN): I had a long discussion with the [...] 12/07/2020 Assessment & Plan (12/27/2021 2:42 PM FIELD CAPTAIN): Lisinopril Assessment & Plan (12/07/2021 11:10 AM CDT): Impression: Patient newly diagnosed with hypertension. Patient is currently on antihypertensive medications. Blood pressure is controlled. Plan: Continue blood pressure management as per primary care provider. Mixed hyperlipidemia 10/17/2020 Assessment & Plan (12/27/2021 2:42 PM FIELD CAPTAIN): Crestor Assessment & Plan (12/07/2021 11:10 AM [...] on file Legal Sex Male 10:46 AM FIELD CAPTAIN Gender Identity Not on file Sexual Orientation Not on file Occupation Industry Job Start Date Job End Date [employer] Not on file Not on file Not [...] patient's age to complete this topic Insurance [employer] [place] [employer] [place] Care Teams Station Chief Relationship Specialty Start Date End Date Rex Matute MD [address] [place] [address] PCP - General Internal Medicine 11/08/20 Darwin Diaz DO [address] [place] [address] MEDICAL ONCOLOGY, [address] [address] Medical Oncologist/Pharmaceutical Sales Hematology and Oncology 08/15/22
--- OUTSIDE RECORDS SUMMARY | 2024-07-22 12:08 | XMS_ITS | Referral Summary ---
Author Organization [facility] [address] Address [address] [place] [phone] Care Team Providers Care Shank Burnisher Name Role Phone Rex Matute MD Primary Care Provider [phone] Darwin Diaz DO Unavailable [phone] Allergies Active Allergy Reactions Criticality Noted Date [...] 12/07/2021 Assessment & Plan (12/27/2021 2:45 PM PROJECT LANDSCAPE ARCHITECT): I had a long discussion with the [...] 12/07/2020 Assessment & Plan (12/27/2021 2:42 PM PROJECT LANDSCAPE ARCHITECT): Lisinopril Assessment & Plan (12/07/2021 11:10 AM CDT): Impression: Patient newly diagnosed with hypertension. Patient is currently on antihypertensive medications. Blood pressure is controlled. Plan: Continue blood pressure management as per primary care provider. Mixed hyperlipidemia 10/17/2020 Assessment & Plan (12/27/2021 2:42 PM PROJECT LANDSCAPE ARCHITECT): Crestor Assessment & Plan (12/07/2021 11:10 AM [...] on file Legal Sex Male 10:46 AM PROJECT LANDSCAPE ARCHITECT Gender Identity Not on file Sexual Orientation Not on file Occupation Industry Job Start Date Job End Date [employer] Not on file Not on file Not [...] Plan of Treatment Not on file Insurance [facility] [employer] [place] Care Teams Shank Burnisher Relationship Specialty Start Date End Date Rex Matute MD [address] [place] [address] PCP - General Internal Medicine 11/08/20 Darwin Diaz DO [address] [place] [address] MEDICAL ONCOLOGY, [facility] [address] [place] [address] Medical Oncologist/Garbage Worker Hematology and Oncology 08/15/22
[2024-07-22 12:14] LABS: Magnesium 2.2 mg/dL (1.6-2.3)
[2024-07-22 12:24] LABS: NT Pro B Type Natriuretic Pept 40 pg/mL (19.9-100)
[2024-07-22 12:54] LABS: D Dimer 0.34 ug/mL (<0.48)
--- NOTE | 2024-07-22 12:55 | PC.NURSE ---
patient refused chest xray
[2024-07-22] MEDS: SODIUM CHLORIDE 0.9% IV 1,000 ML 999 ML IV CONT (13:00)
[2024-07-22 13:16] VITALS: BP 133/85; PULSE 45
[2024-07-22 13:17] VITALS: BP 148/76; PULSE 53
[2024-07-22 13:19] VITALS: BP 142/86; PULSE 57
== END 2024-07-22 14:16 | disposition home or self-care (01) ==
PROVIDERS: Emergency Medicine; Emergency Provider Physician Assistant; PCP Family Medicine
DX: R07.89 Other chest pain (principal); R00.1 Bradycardia, unspecified; I10 Essential (primary) hypertension; E78.5 Hyperlipidemia, unspecified; Z86.711 Personal history of pulmonary embolism; Z86.16 Personal history of COVID-19; Z86.718 Personal history of other venous thrombosis and embolism; Z87.442 Personal history of urinary calculi; I44.0 Atrioventricular block, first degree; R94.31 Abnormal electrocardiogram [ECG] [EKG]
CPT/HCPCS: 36415; 80053; 83690; 83735; 83880; 84484; 85025; 85380; 85610; 85730; 93005; 96360; 99284; J7030

== ENCOUNTER 2025-01-16 15:08 | Emergency (ER) | payer BC, SELFPAY ==
--- OUTSIDE RECORDS SUMMARY | 2016-12-12 10:38 | XMS_ITS | Continuity of Care Document ---
Author Organization [facility] [facility] Address [address] [place] [address] Phone Care Team Providers Care Spice Cleaner Name Role Phone Devon Lang MD Unavailable Unavailable Advance Directives Directive Yes / No Effective Date File Name No Information Encounters Encounter Description Practice Location Reason(s) For Visit Diagnoses Date Provider Providers Copied on Encounter [facility], [address], [place], [place], [id number], [place] tel:[phone] [place] No Information Rickey Osorio. [address] [place] [address], [id number], . tel:[phone] Family History Family Member Type Diagnosis Age At Onset No Information Payers Payer name Insurance type Covered republican ID Authoriza tion(s) No Information Social History Type Description Quantity Date Captured Comments Sex Male Smoking Status No Information Chief Complaint And Reason For Visit No Information Reason For Referral Reason For Referral No Information History Of Present Illness Encounter Date Complaint History Of Prese nt Illness No Information Functional Status Date Functional Assessmen t No Information Instructions Date Instruction Additional Infor mation No Information Assessments Type Assessment Date No Information Patient Care Teams Name Effective Dates (start - stop) Status Members No Information
--- OUTSIDE RECORDS SUMMARY | 2016-12-12 10:38 | XMS_ITS | Continuity of Care Document ---
Author Organization [facility] Address [address] [place] [address] Phone Care Team Providers Care Director Of State Name Role Phone Devon Lang MD Unavailable Unavailable Advance Directives Directive Yes / No Effective Date File Name No Information Encounters Encounter Description Practice Location Reason(s) For Visit Diagnoses Date Provider Providers Copied on Encounter [facility], [address], [place], [place], [id number], [place] tel:[phone] [place] No Information Rickey Osorio. [address] [place] [address], [id number], . tel:[phone] Family History Family Member Type Diagnosis Age At Onset No Information Payers Payer name Insurance type Covered libertarian ID Authoriza tion(s) No Information Social History [...]
--- NOTE | ~2025-01-16 | US_ITS ---
EXAMINATION: US venous doppler LE LT, 01/16/2025 15:23 RELAY REPAIRER HISTORY: leg pain Comparison: 08/14/2021 Technique: Neely-scale and color Doppler images were attempted of the lower saphenofemoral junction, common femoral vein,superficial femoral vein, proximal deep femoral vein, proximal deep femoral vein, popliteal vein and posterior tibial veins. Findings: There is nonocclusive thrombus within the distal popliteal vein extending into the gastrocnemius vein. There is thrombus also noted within the lesser saphenous vein, the thrombus appears chronic in appearance. Minimal thrombus noted also in the posterior tibial vein. Soft tissues: Soft tissues are unremarkable. Impression: Chronic appearing DVT detailed above. Distinction from superimposed acute thrombus is limited. Follow-up is suggested to assess for change Chronic-appearing superficial thrombophlebitis Reviewed, dictated and finalized at location P. Y REPAIRER Impression: Chronic appearing DVT detailed above. Distinction from superimposed acute throm bus is limited. Follow-up is suggested to assess for change Chronic-appearing superficial thrombophlebitis
--- OUTSIDE RECORDS SUMMARY | 2025-01-16 15:12 | XMS_ITS | Encounter Summary ---
Author Organization [facility] Address [address] [place] [id number] Care Team Providers Care Sleep Scientist Name Role Phone Rex Matute MD Primary Care Provider [phone] Encounter Details Date Type Department Care Team (Latest Contact Info) Description 03/02/2022 Praccelt Message Enc [facility] [place] [address] [address] [place] [address] Rex Matute MD [address] [place] [address] [address] [place] [address] Question regarding EMG Social History Tobacco Use Types Packs/Day Years Used Date Smoking Tobacco: Never Smokeless Tobacco: Never Comments:Counseled by Dr. Stanley ate Alcohol Use Standard Drinks/Week Comments Not Currently 0 (1 standard drink = 0.6 oz pur e alcohol) PHQ-2 Answer Date Recorded PHQ-2 Score - If the patient scores above 3, please move on to questions 3-9 0 10/20/2021 Sex and Gender Information Value Date Recorded Sex Assigned at Male 03/13/2024 8:23 AM MANAGER MARKET DEVELOPMENT Legal Sex Male 10:46 AM CDT Gender Identity Male 03/13/2024 8:23 AM MANAGER MARKET DEVELOPMENT Sexual Orientation Straight 03/13/2024 8: 23 AM MANAGER MARKET DEVELOPMENT COVID-19 Exposure Response Date Recorded In the last 10 days, have yo u been in contact with someone who was confirmed or suspected to have Coronavirus/COVID-19? No / Unsure 02/26/2022 2:38 PM MANAGER MARKET DEVELOPMENT documented as of this encounter Plan of Treatment Not on file documented as of this encounter Visit Diagnoses Not on filedocumented in this encounter Additional Health Concerns Assessment Noted Time PHQ-9 Depression Total Score: 0 01/14/20 21 9:11 AM MANAGER MARKET DEVELOPMENT documented as of this encounter Care Teams Sleep Scientist Relationship Specialty Start Date End Date Rex Matute MD [address] [facility] [address] [place] [address] PCP - General INTERNAL MEDICINE 03/06/24 documented as of this encounter
--- OUTSIDE RECORDS SUMMARY | 2025-01-16 15:12 | XMS_ITS | Encounter Summary ---
Author Organization [facility] Address [address] [place] [address] Care Team Providers Care Hl7 Developer Name Role Phone Rex Matute MD Primary Care Provider [phone] Encounter Details Date Type Department Care Team (Late st Contact Info) Description 12/27/2023 [email or web address] Message Enc [facility] Multispecialty Care [place] [address] [address] [place], [place] [id number] Rex Matute MD [address] [place] [address] 157 [place], [place] [phone] Annual physical Social History Tobacco Use Types Packs/Day Years Used Date Smoking Tobacco: Never Smokeless Tobacco: Never Comments:Counseled by Dr. Stanley ate Alcohol Use Standard Drinks/Week Comments Not Currently 0 (1 standard drink = 0.6 oz pur e alcohol) PHQ-2 Answer Date Recorded Patient Health Questionnaire-2 Score 0 07/09/2022 Sex and Gender Information Value Date Recorded Sex Assigned at Male 03/13/2024 8:23 AM ORDER PICKER Legal Sex Male 10:46 AM CDT Gender Identity Male 03/13/2024 8:23 AM ORDER PICKER Sexual Orientation Straight 03/13/2024 8: 23 AM ORDER PICKER documented as of this encounter Plan of Treatment Not on file documented as of this encounter Visit Diagnoses Not on filedocumented in this encounter Additional Health Concerns Assessment Noted Time PHQ-9 Depression Total Score: 0 01/14/20 21 9:11 AM ORDER PICKER documented as of this encounter Care Teams Hl7 Developer Relationship Specialty Start Date End Date Rex Matute MD [address] [place] [address] [place] [address] PCP - General INTERNAL MEDICINE 03/06/24 documented as of this encounter
--- OUTSIDE RECORDS SUMMARY | 2025-01-16 15:12 | XMS_ITS | Encounter Summary ---
Author Organization [facility] Address [address] [place] [address] Care Team Providers Care Warper Tender Name Role Phone Rex Matute MD Primary Care Provider [phone] Encounter Details Date Type Department Care Team (Latest Contact Info) Description 05/21/2021 [employer] Message Enc [facility] Multispecialty Care [place] [address] [place] [address] [address] [place] [address] [place] [address] [place] [address] 157 [place], [place] [phone] fasting during your next appointment Social History Tobacco Use Types Packs/Day Years Used Date Smoking Tobacco: Never Smokeless Tobacco: Never Comments:Counseled by Dr. Stanley ate Alcohol Use Standard Drinks/Week Comments Not Currently 0 (1 standard drink = 0.6 oz pur e alcohol) PHQ-2 Answer Date Recorded PHQ-2 Score - If the patient scores above 3, please move on to questions 3-9 0 01/13/2021 Sex and Gender Information Value Date Recorded Sex Assigned at Male 03/13/2024 8:23 AM INSURANCE SALESPERSON Legal Sex Male 10:46 AM CDT Gender Identity Male 03/13/2024 8:23 AM INSURANCE SALESPERSON Sexual Orientation Straight 03/13/2024 8: 23 AM INSURANCE SALESPERSON documented as of this encounter Plan of Treatment Not on file documented as of this encounter Visit Diagnoses Not on filedocumented in this encounter Additional Health Concerns Assessment Noted Time PHQ-9 Depression Total Score: 0 01/14/20 21 9:11 AM INSURANCE SALESPERSON documented as of this encounter Care Teams Warper Tender Relationship Specialty Start Date End Date Rex Matute MD [address] [address] PCP - General INTERNAL MEDICINE 03/06/24 documented as of this encounter
--- OUTSIDE RECORDS SUMMARY | 2025-01-16 15:12 | XMS_ITS | Clinical Summary ---
Author Organization [facility] [address] [facility] [address] Address [address] [place] [id number] Care Team Providers Care [place] Program Coordinator Name Role Phone Rex Matute MD Primary Care Provider [phone] Darwin Diaz DO Unavailable [phone] Allergies Active Allergy Reactions Criticality Noted Date [...] 12/07/2021 Assessment & Plan (12/27/2021 2:45 PM ENROLLED AGENT): I had a long discussion with the [...] 12/07/2020 Assessment & Plan (12/27/2021 2:42 PM ENROLLED AGENT): Lisinopril Assessment & Plan (12/07/2021 11:10 AM CDT): Impression: Patient newly diagnosed with hypertension. Patient is currently on antihypertensive medications. Blood pressure is controlled. Plan: Continue blood pressure management as per primary care provider. 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 Not on file Not [...] Vaccine (1 of 2) 01/19/2014 Influenza Vaccine (#1) 2024 Pneumococcal vaccine <65 Aged Out No longer eligible based on patient's age to complete this topic Insurance [employer] [place] [employer] [place] Care Teams [place] Program Coordinator Relationship Specialty Start Date End Date Rex Matute MD [address] [place] [address] PCP - General Internal Medicine 11/08/20 Darwin Diaz DO [address] [place] [address] MEDICAL ONCOLOGY, [facility] [address] [place] [address] Medical Oncologist/Marketing Graphics Specialist Hematology and Oncology 08/15/22
--- OUTSIDE RECORDS SUMMARY | 2025-01-16 15:12 | XMS_ITS | Encounter Summary ---
Author Organization [facility] Address [address] [place] [address] Care Team Providers Care Gasoline Tester Name Role Phone Rex Matute MD Primary Care Provider [phone] Encounter Details Date Type Department Care Team (Late st Contact Info) Description 12/11/2021 [employer] Message Enc [facility] Medical Group Multispecialty Care - [place] [address] [address] [place] [address] [place] [address] [place] [address] 157 [place], [place] [phone] Statin Social History Tobacco Use Types Packs/Day Years [...] Sex Assigned at Male 03/13/2024 8:23 AM THERMOFORMING MACHINE OPERATOR Legal Sex Male 10:46 AM CDT Gender Identity Male 03/13/2024 8:23 AM THERMOFORMING MACHINE OPERATOR Sexual Orientation Straight 03/13/2024 8: 23 AM THERMOFORMING MACHINE OPERATOR documented as of this encounter Plan of Treatment Not on file documented as of this encounter Visit Diagnoses Not on filedocumented in this encounter Additional Health Concerns Assessment Noted Time PHQ-9 Depression Total Score: 0 01/14/20 21 9:11 AM THERMOFORMING MACHINE OPERATOR documented as of this encounter Care Teams Gasoline Tester Relationship Specialty Start Date End Date Rex Matute MD [address] [address] PCP - General INTERNAL MEDICINE 03/06/24 documented as of this encounter
--- OUTSIDE RECORDS SUMMARY | 2025-01-16 15:12 | XMS_ITS | Encounter Summary ---
Author Organization [facility] Address [address] [place] [address] Care Team Providers Care Vitamin Manager Name Role Phone Rex Matute MD Primary Care Provider [phone] Encounter Details Date Type Department Care Team (Late st Contact Info) Description 11/21/2022 [email or web address] Textbook Timet Message Enc [facility] Medical Group Multispecialty Care - [place] [address] [address] [place], [place] [phone] Rex Matute MD [address] [place] [address] 157 [place], [place] [phone] Test results Social History Tobacco Use Types Packs/Day Years Used Date Smoking Tobacco: Never Smokeless Tobacco: Never Comments:Counseled by Dr. Stanley ate Alcohol Use Standard Drinks/Week Comments Not Currently 0 (1 standard drink = 0.6 oz pur e alcohol) PHQ-2 Answer Date Recorded Patient Health Questionnaire-2 Score 0 07/09/2022 Sex and Gender Information Value Date Recorded Sex Assigned at Male 03/13/2024 8:23 AM RELEASE OF INFORMATION CLERK Legal Sex Male 10:46 AM CDT Gender Identity Male 03/13/2024 8:23 AM RELEASE OF INFORMATION CLERK Sexual Orientation Straight 03/13/2024 8: 23 AM RELEASE OF INFORMATION CLERK documented as of this encounter Plan of Treatment Not on file documented as of this encounter Visit Diagnoses Not on filedocumented in this encounter Additional Health Concerns Assessment Noted Time PHQ-9 Depression Total Score: 0 01/14/20 21 9:11 AM RELEASE OF INFORMATION CLERK documented as of this encounter Care Teams Vitamin Manager Relationship Specialty Start Date End Date Rex Matute MD [address] [place] [address] [place] [address] PCP - General INTERNAL MEDICINE 03/06/24 documented as of this encounter
--- OUTSIDE RECORDS SUMMARY | 2025-01-16 15:12 | XMS_ITS | Encounter Summary ---
Author Organization [facility] Address [address] [place] [address] Care Team Providers Care Hogshead Mat Assembler Name Role Phone Rex Matute MD Primary Care Provider [phone] Encounter Details Date Type Department Care Team (Latest Contact Info) Description 10/01/2023 [employer] Message Enc [facility] Medical Group Multispecialty Care - [place] [address] [address] [place], [place] [id number] Rex Matute MD [address] [facility] 157 [place], [place] [phone] your annual physical Social History Tobacco Use Types Packs/Day Years Used Date Smoking Tobacco: Never Smokeless Tobacco: Never Comments:Counseled by Dr. Stanley ate Alcohol Use Standard Drinks/Week Comments Not Currently 0 (1 standard drink = 0.6 oz pur e alcohol) PHQ-2 Answer Date Recorded Patient Health Questionnaire-2 Score 0 07/09/2022 Sex and Gender Information Value Date Recorded Sex Assigned at Male 03/13/2024 8:23 AM STOCK TURNER Legal Sex Male 10:46 AM CDT Gender Identity Male 03/13/2024 8:23 AM STOCK TURNER Sexual Orientation Straight 03/13/2024 8: 23 AM STOCK TURNER documented as of this encounter Plan of Treatment Not on file documented as of this encounter Visit Diagnoses Not on filedocumented in this encounter Additional Health Concerns Assessment Noted Time PHQ-9 Depression Total Score: 0 01/14/20 21 9:11 AM STOCK TURNER documented as of this encounter Care Teams Hogshead Mat Assembler Relationship Specialty [place] [address] [place] [address] 157 [place] [address] PCP - General INTERNAL MEDICINE 03/06/24 documented as of this encounter
--- OUTSIDE RECORDS SUMMARY | 2025-01-16 15:12 | XMS_ITS | Encounter Summary ---
Author Organization [facility] Address [address] [place] [address] Care Team Providers Care It Systems Administrator Name Role Phone Rex Matute MD Primary Care Provider [phone] Encounter Details Date Type Department Care Team (Late st Contact Info) Description 12/16/2020 united healthcare practice solutions[facility] Message Enc [facility] Medical Group Multispecialty Care - [place] [address] [address] [place] [address] [place] [address] [place] [address] 157 [place], [place] [phone] RE: Question Social History Tobacco Use Types Packs/Day Years Used Date Smoking Tobacco: Never Smokeless Tobacco: Never Comments:Counseled by Dr. Stanley ate Alcohol Use Standard Drinks/Week Comments Not Currently 0 (1 standard drink = 0.6 oz pur e alcohol) PHQ-2 Answer Date Recorded PHQ-2 Score - If the patient scores above 3, please move on to questions 3-9 0 11/23/2020 Sex and Gender Information Value Date Recorded Sex Assigned at Male 03/13/2024 8:23 AM PHYSICIAN RELATIONS REPRESENTATIVE Legal Sex Male 10:46 AM CDT Gender Identity Male 03/13/2024 8:23 AM PHYSICIAN RELATIONS REPRESENTATIVE Sexual Orientation Straight 03/13/2024 8: 23 AM PHYSICIAN RELATIONS REPRESENTATIVE COVID-19 Exposure Response Date Recorded In the last month, have you been in contact with someone who was confirmed or suspected to have Coronavirus / COVID-19? No / Unsure 12/07/2020 10:16 AM CDT documented as of this encounter Plan of Treatment Not on file documented as of this encounter Visit Diagnoses Not on filedocumented in this encounter Additional Health Concerns Assessment Noted Time PHQ-9 Depression Total Score: 2 11/24/19 21 9:38 AM CDT documented as of this encounter Care Teams It Systems Administrator Relationship Specialty Start Date End Date Rex Matute MD [address] [address] PCP - General INTERNAL MEDICINE 03/06/24 documented as of this encounter
--- OUTSIDE RECORDS SUMMARY | 2025-01-16 15:12 | XMS_ITS | Encounter Summary ---
Author Organization [facility] Address [address] [place] [address] Care Team Providers Care Estimator And Drafter Supervisor Name Role Phone Rex Matute MD Primary Care Provider [phone] Encounter Details Date Type Department Care Team (Late st Contact Info) Description 09/25/2021 MyChart Message Enc [facility] Medical Group Multispecialty Care - [place] [address] [address] [place] [address] [place] [address] [place] [address] 157 [place], [place] [phone] Medication Social History Tobacco Use Types Packs/Day Years [...] Sex Assigned at Male 03/13/2024 8:23 AM WARP TYING MACHINE TENDER Legal Sex Male 10:46 AM CDT Gender Identity Male 03/13/2024 8:23 AM WARP TYING MACHINE TENDER Sexual Orientation Straight 03/13/2024 8: 23 AM WARP TYING MACHINE TENDER COVID-19 Exposure Response Date Recorded In the last 10 days, have yo u been in contact with someone who was confirmed or suspected to have Coronavirus/COVID-19? No / Unsure 09/20/2021 7:30 AM CDT documented as of this encounter Plan of Treatment Not on file documented as of this encounter Visit Diagnoses Not on filedocumented in this encounter Additional Health Concerns Assessment Noted Time PHQ-9 Depression Total Score: 0 01/14/20 21 9:11 AM WARP TYING MACHINE TENDER documented as of this encounter Care Teams Estimator And Drafter Supervisor Relationship Specialty Start Date End Date Rex Matute MD [address] [facility] [address] [place] [address] PCP - General INTERNAL MEDICINE 03/06/24 documented as of this encounter
--- OUTSIDE RECORDS SUMMARY | 2025-01-16 15:12 | XMS_ITS | Clinical Summary ---
Author Organization [facility] Address [address] [place] [address] Care Team Providers Care Auto Garage Mechanic Name Role Phone Phillip Oconnor MD Primary Care Provider [phone] Allergies Active Allergy Reactions Criticality Noted Date [...] (1 of 2) 01/19/2014 INFLUENZA VACCINE (#1) 2024 RSV VACCINE (60+ or ) (1 - 1-dose 75+ series) 01/19/2039 HEPATITIS B VACCINES Aged Out No long er eligible based on patient's age to complete this topic Insurance [facility] [employer] Care Teams Auto Garage Mechanic Relationship Specialty Start Date End Date Phillip Oconnor MD [facility] [place] [id number] PCP - General Family Practice 09/21/20
--- OUTSIDE RECORDS SUMMARY | 2025-01-16 15:12 | XMS_ITS | Encounter Summary ---
Author Organization [facility] Address [address] [place] [address] Care Team Providers Care Defensive Fire Control Systems Operator Name Role Phone Rex Matute MD Primary Care Provider [phone] Encounter Details Date Type Department Care Team (Latest Contact Info) Description 10/28/2021 [employer] Message Enc [facility] Medical Group Multispecialty Care - [place] [address] [place] [address] [address] [place] [address] [place] [address] [place] [address] 157 [place], [place] [phone] Question regarding LIPID PANEL Social History Tobacco Use Types Packs/Day Years [...] Sex Assigned at Male 03/13/2024 8:23 AM BILLET ASSEMBLER Legal Sex Male 10:46 AM CDT Gender Identity Male 03/13/2024 8:23 AM BILLET ASSEMBLER Sexual Orientation Straight 03/13/2024 8: 23 AM BILLET ASSEMBLER COVID-19 Exposure Response Date Recorded In the last 10 days, have yo u been in contact with someone who was confirmed or suspected to have Coronavirus/COVID-19? No / Unsure 10/20/2021 11:37 AM CDT documented as of this encounter Plan of Treatment Not on file documented as of this encounter Visit Diagnoses Not on filedocumented in this encounter Additional Health Concerns Assessment Noted Time PHQ-9 Depression Total Score: 0 01/14/20 21 9:11 AM BILLET ASSEMBLER documented as of this encounter Care Teams Defensive Fire Control Systems Operator Relationship Specialty Start Date End Date Rex Matute MD [address] [address] PCP - General INTERNAL MEDICINE 03/06/24 documented as of this encounter
--- OUTSIDE RECORDS SUMMARY | 2025-01-16 15:12 | XMS_ITS | Encounter Summary ---
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 No / Unsure 11/23/2020 8:36 AM CDT documented as of this encounter Plan of Treatment Not on file documented as of this encounter Visit Diagnoses Not on filedocumented in this encounter Additional Health Concerns Assessment Noted Time PHQ-9 Depression Total Score: 2 11/24/19 21 9:38 AM CDT documented as of this encounter Care Teams Content Coordinator Relationship Specialty Start Date End Date Rex Matute MD [address] [facility] [address] [place] [address] PCP - General INTERNAL MEDICINE 03/06/24 documented as of this encounter
--- OUTSIDE RECORDS SUMMARY | 2025-01-16 15:12 | XMS_ITS | Continuity of Care Document ---
Author Organization [facility] Address [facility] [place] [address] Care Team Providers Care Auto Camp Attendant Name Role Phone Rex Matute MD Primary Care Provider [phone] Encounters Date Type Department Care Team Description 04/13/2024 Scan SEAT 4a INFO SRVCS Scanned, Doc Med [facility] 03/13/2024 Travel 03/13/2024 8:00 AM GARDEN TRACTOR MECHANIC Office Visit [address] [address] [address] [place] [address] Arabella Duval, [employer] SUPERVISOR Cellulitis 03/06/2024 Travel 03/06/2024 2:20 PM GARDEN TRACTOR MECHANIC Office Visit [address] [place] [address] Arabella Duval, SOL[employer] W[employer] DIV[employer] SUPERVISOR Foot Pain (Red swollen) 02/03/2024 Telephone [address] [address] [place] [address] Rex Matute MD Follow Up Call 12/27/2023 Baifendian Message Enc [address] [place] [address] Rex Matute MD Annual physical 11/07/2023 [facility]phone [facility] [address] [place] [address] Rex Matute MD Follow Up Call 10/01/2023 MyChart Message Enc [facility] [address] [facility] [address] [place] [address] Rex Matute MD your annual physical 08/07/2023 Telephone [facility] [address] [facility] [address] [place] [address] Rex Matute MD Follow Up Call 03/29/2023 [facility]phone [facility] [place] [address] [facility] [address] [place] [address] Rex Matute MD Medication 02/15/2023 [facility]phone [facility] [place] [address] [facility] [address] [place] [address] Rex Matute MD Medication 02/15/2023 Telephone [place] [address] [facility] [address] [place] [address] Rex Matute MD Medication Information 01/25/2023 [facility]phone [facility] [place] [address] [facility] [address] [place] [address] Rex Matute MD Medication 11/21/2022 MyChart Message Enc [facility] [address] [place] [address] Rex Matute MD Test results 11/14/2022 Scan MG HEALTH INFO SRVCS Scanned, Doc Med Group 11/08/2022 Travel 10/26/2022 7:20 AM CDT [facility] [place] [address] [facility] [address] [place] [address] Rex Matute MD Downtime Visit 08/15/2022 Scan MG HEALTH INFO SRVCS Scanned, Doc Med Group 07/19/2022 Telephone [facility] - [address], [address] [place] [address] Gerald Aceves MD Lab Results; Returned Call 07/09/2022 3:05 PM CDT - 07/09/2022 11:59 PM CDT Hospital Encounter [facility] [place] [address] Gerald Aceves MD Discharge Disposition: Home or Self Care (Routine Discharge) 07/09/2022 Travel 07/09/2022 2:00 PM CDT [facility] [address], [address] [place] [address] Gerald Aceves MD Establish Care 05/08/2022 Travel 05/08/2022 7:20 AM CDT Office Visit [place] [address] [address] [facility] [address] [place] [address] Rex Matute MD Follow Up (Pt is following up for chronic medical issues) 03/05/2022 Telephone [address] [place] [address] [facility] [address] [place] [address] Rex Matute MD Results 03/02/2022 MyChart Message Enc [place] [address] [facility] [address] [place] [address] Rex Matute MD Question regarding EMG 02/26/2022 Telephone [place] [address] [address] [facility] [address] [place] [address] Rex Matute MD Referral 02/26/2022 Travel 02/26/2022 2:38 PM GARDEN TRACTOR MECHANIC - 02/26/2022 11:59 PM GARDEN TRACTOR MECHANIC Hospital Encounter [facility] [address] [place] [address] Rex Matute MD Patchala, Sri K, MD Discharge Disposition: Home or Self Care (Routine Discharge) 01/31/2022 Travel 01/31/2022 2:20 PM GARDEN TRACTOR MECHANIC Office Visit [place] [address] [facility] [address] [place] [address] Rex Matute MD Numbness (Pt states he has numbness in his right foot and leg. Pt states the clots have somewhat gone now.) 01/26/2022 Telephone [place] [address] [facility] [address] [place] [address] Rex Matute MD Information 12/27/2021 Scan MG HEALTH INFO SRVCS Scanned, Doc Med Group 12/11/2021 MyChart Message Enc [place] [address] [address] [facility] [address] [place] [address] Rex Matute MD Statin 11/28/2021 Scan MG HEALTH INFO SRVCS Scanned, Documents 11/07/2021 Scan MG HEALTH INFO SRVCS Scanned, Documents Ultrasound (SCAN) 10/28/2021 MyChart Message Enc [place] [address] [address] [facility] [address] [place] [address] Rex Matute MD Question regarding LIPID PANEL 10/20/2021 Travel 10/20/2021 11:40 AM CDT Office Visit [place] [address] [address] [facility] [address] [place] [address] Rex Matute MD Follow Up (Chronic medical issues) 09/25/2021 MyChart Message Enc [place] [address] [address] [facility] [address] [place] [address] Rex Matute MD Medication 09/20/2021 Travel 09/20/2021 7:30 AM CDT Allied Health/Nurse Visit [place] [address] [place] [address] Rex Matute MD Allied Health Visit (Patient is here for a lipid lab draw) 08/16/2021 Scan MG HEALTH INFO SRVCS Scanned, Documents 08/14/2021 Scan MG HEALTH INFO SRVCS Scanned, Documents Vascular Lab Study (SCAN) 05/26/2021 Telephone [place] [address] [facility] [address] [place] [address] Rex Matute MD Medication 05/26/2021 Travel 05/26/2021 9:00 AM CDT Office Visit [place] [address] [facility] [address] [place] [address] Rex Matute MD Follow Up (Pt is here to follow up on hypertension, hyperlipidemia, and history of PE.) 05/21/2021 MyChart Message Enc [place] [address] [facility] [address] [place] [address] Rex Matute MD fasting during your next appointment 05/16/2021 Scan MG HEALTH INFO SRVCS Scanned, Documents Vascular Lab Study (SCAN) 05/04/2021 Telephone [place] [address] [facility] [address] [place] [address] Rex Matute MD Results 05/01/2021 Telephone [place] [address] [facility] [address] [place] [address] Rex Matute MD Referral 04/30/2021 Scan MG HEALTH INFO SRVCS Scanned, Documents 02/28/2021 Telephone [place] [address] [facility] [address] [place] [address] Rex Matute MD Medication 02/15/2021 Telephone [place] [address] [place] [address] Rex Matute MD Referral 02/01/2021 Scan MG HEALTH INFO SRVCS Scanned, Documents 01/24/2021 Telephone [place] [address] [address] [place] [address] Rex Matute MD Results 01/24/2021 Orders Only [place] [address] [place] [address] Stephenie Dowling MA 01/23/2021 Telephone [address] [place] [address] Rex Matute MD Question (Recieved fax back from [facility] and that the pt did not recieve his colonoscopy there. Called pt to ask where he had colonnoscopy done at. I left a voice message for pt to call back. ) 01/18/2021 Telephone [facility] [address] [place] [address] Rex Matute MD Refill Request 01/13/2021 Travel 01/13/2021 9:00 AM GARDEN TRACTOR MECHANIC Office Visit [address] [place] [address] Rex Matute MD Follow Up (3 month f/u, he has declined vaccines at this time) 01/10/2021 Travel 12/22/2020 Scan MG HEALTH INFO SRVCS Scanned, Documents 12/22/2020 Telephone [place] [address] [place] [address] Rex Matute MD Forms 12/21/2020 Telephone [place] [address] [place] [address] Rex Matute MD Follow Up Call 12/16/2020 Orders Only [facility] [place] [address] [place] [address] Rex Matute MD 12/16/2020 Baifendian Message Enc [facility] [place] [address] [place] [address] Rex Matute MD RE: Question 12/09/2020 Telephone [facility] [place] [address] [place] [address] Rex Matute MD Results 12/07/2020 Travel 12/07/2020 10:20 AM CDT Office Visit [place] [address] [facility] [address] [place] [address] Rex Matute MD Follow Up (Pt is here to follow up on BP and is complaning of tingling in his feet and toes at night. ) 12/05/2020 Scan Bitium SRVCS Scanned, Documents Image (SCAN) 11/25/2020 Baifendian Message Enc [facility] [place] [address] [place] [address] Rex Matute MD urine results 11/23/2020 - 11/23/2020 11:59 PM CDT [facility] [address] [place] [address] Rex Matute MD Discharge Disposition: Home or Self Care (Routine Discharge) 11/23/2020 Travel 11/23/2020 8:40 AM CDT Office Visit [place] [address] [facility] [address] [place] [address] Rex Matute MD Blood Pressure (States he is having issues with high blood pressure when he checks it at home, especially in the evenings. This is causing him issues at night while trying to sleep, also frequent urination.) 11/21/2020 Telephone [place] [address] [facility] [address] [place] [address] Rex Matute MD Other 11/17/2020 Travel 11/17/2020 7:20 AM CDT Office Visit [place] [address] [place] [address] Rex Matute MD BP Check (Pt states his BP at home has been as high as 188/108 last night. He does not feel good. He can't sleep, has muscle tightness, and nausea. Her is afraid to exercise as he thinks he will have a heart attack.) 11/16/2020 Telephone [place] [address] [place] [address] Rex Matute MD Results 11/15/2020 Orders Only [place] [address] [place] [address] Rex Matute MD 11/15/2020 Telephone [place] [address] [place] [address] Rex Matute MD Follow Up Call 11/14/2020 Travel 11/14/2020 9:00 AM CDT Office Visit [place] [address] [facility] [address] [place] [address] Rex Matute MD Nausea (Pt has been nauseated for the past 2 weeks.); Note From Provider Request (patient wants a note of excemption for covid vaccination) 11/08/2020 Scan SEAT 4a INFO SRVCS Scanned, Documents Echo (SCAN) 11/03/2020 Telephone [place] [address] [place] [address] Rex Matute MD Medication Problem 10/31/2020 Scan HEALTH INFO SRVCS Scanned, Documents Vascular Lab Study (SCAN) 10/18/2020 1:00 PM CDT Allied Health/Nurse Visit [place] [address] [place] [address] Lab Draw (PSA recheck) 10/17/2020 Travel 10/17/2020 Telephone [place] [address] [place] [address] Rex Matute MD Lab Order 10/14/2020 - 10/14/2020 11:59 PM CDT Hospital Encounter [facility] [address] Rex Matute MD Discharge Disposition: Home or Self Care (Routine Discharge) 10/14/2020 Telephone [place] [address] [place] [address] Rex Matute MD Lab Results 10/14/2020 Travel 10/14/2020 8:20 AM CDT Office Visit [place] [address] [place] [address] Rex Matute MD New Patient (establish care, suffers from blood clots, c/o of feeling generally unwell because of this. Previous pcp was Dr. Oconnor) 08/06/2020 Scan HEALTH INFO SRVCS Scanned, Documents 07/29/2020 Scan MG HEALTH INFO SRVCS Scanned, Documents ECG (SCAN) 07/28/2020 Scan MG HEALTH INFO SRVCS Scanned, Documents ECG (SCAN) 04/07/2019 Scan MG HEALTH INFO SRVCS Scanned, Documents Colonoscopy Report (SCAN) Allergies Active Allergy Reactions Criticality Noted Date Comments Aspirin Swelling Medium 10/23/2019 Morphine Swelling Medium 09/21/2020 Atorvastatin Myalgias 01/13/2021 Medications icosapent ethyl (VASCEPA) 1 G capsuleIndication s:Atherosclerosis of coronary artery, unspecified vessel or lesion type, unspecified whether angina present, unspecified whether [place] or transplanted heart TAKE 2 CAPSULES(2 GRAMS) BY MOUTH TWICE DAILY WITH FOOD 120 capsule 5 3 Active Magnesium 400 MG TabIndications:Id iopathic progressive neuropathy Take 800 mg by mouth daily. 180 tablet 1 3 Active cephALEXin (KEFLEX) 500 MG capsuleIndication s:Cellulitis of left lower extremity Take 1 capsule (500 mg total) by mouth 3 (three) times daily. Take with food 12 capsule 5 Active Active Problems Problem Noted Date Diagnosed Date History of deep vein thrombosis of lower extremi ty 12/07/2021 Overview (01/31/2022): Last Assessment & Plan: I had a long discussion with the [...] of compression therapy. He can follow-up p.r.n.. DVT, bilateral lower limbs 04/12/2021 History of pulmonary embolus (PE) 04/12/2021 Primary hypertension 12/07/2020 Mixed hyperlipidemia 10/17/2020 Secondary hypercoagulable state 09/21/2020 Overview (10/14/2020): On Xarelto. Currently following with Hematology Dr Jagjit Bledsoe. Stable and tolerating current dose. Noted prior extensive negative work up History of PE and DVT. 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 Routine follow-up. Primary insomnia 12/07/2020 01/13/2021 Gastroesophageal reflux dise ase without esophagitis 10/14/2020 01/13/2021 Family History Medical History Relation Comments Alzheimers Father Cancer Father prostate, brain Diabetes Mother Relation Status Comments Father Mother Alive Social History Smoking Status as of 01/16/2025 Tobacco Use Types Packs/Day Years Used Date Smoking Tobacco: Never Assessed PHQ-2 Answer Date Recorded Patient Health Questionnaire-2 Score 0 07/09/2022 Sex and Gender Information Value Date Recorded Sex Assigned at Male 03/13/2024 8:23 AM GARDEN TRACTOR MECHANIC Legal Sex Male 10:46 AM CDT Gender Identity Male 03/13/2024 8:23 AM GARDEN TRACTOR MECHANIC Sexual Orientation Straight 03/13/2024 8: 23 AM GARDEN TRACTOR MECHANIC Last Filed Vital Signs Vital Sign Reading Time Taken Comments Blood Pressure 138/84 03/13/2024 8:30 AM GARDEN TRACTOR MECHANIC Pulse 68 03/13/2024 8:23 AM GARDEN TRACTOR MECHANIC Temperature 36.7 C (98.1 F) 03/13/2024 8:23 AM GARDEN TRACTOR MECHANIC Respiratory Rate 18 03/13/2024 8:23 AM GARDEN TRACTOR MECHANIC Oxygen Saturation 98% 03/13/2024 8:23 AM GARDEN TRACTOR MECHANIC Inhaled Oxygen Concentration - - Weight 79.4 kg (175 lb) 03/13/2024 8:23 AM GARDEN TRACTOR MECHANIC Height 182.9 cm (6') 03/13/2024 8:23 AM GARDEN TRACTOR MECHANIC Body Mass Index 23.73 03/13/2024 8:23 AM GARDEN TRACTOR MECHANIC Plan of Treatment Not on file Procedures Procedure Name Priority Date/Time Associated Diagnosis Comments COLLECTION VENOUS BLOOD VENIPUNCTURE Routine 11/19/2022 1:52 PM CDT Mixed hyperlipidemia Primary hypertension DVT, bilateral lower limbs LIPID PANEL Routine 10/26/2022 8:23 AM CDT Medication management TSH W/REFLEX Routine 10/26/2022 8:23 AM CDT Medication management CBC W/DIFF AUTOMATED Routine 10/26/2022 8:23 AM CDT Medication management HEMOGLOBIN, GLYCOSYLATED Routine 10/26/2022 8:23 AM CDT Medication management COMPREHENSIVE METABOLIC PANEL Routine 10/26/2022 8:23 AM CDT Medication management PROSTATE SPECIFIC ANTIGEN,SCREENING Routine 10/26/2022 8:23 AM CDT Medication management PROTEIN, ELECTROPHORESIS Routine 07/09/2022 3:12 PM CDT Neuropathy FOLIC ACID SERUM Routine 07/09/2022 3:12 PM CDT Neuropathy VITAMIN B6 Routine 07/09/2022 3:12 PM CDT Neuropathy VITAMIN B1 THIAMINE Routine 07/09/2022 3 :12 PM CDT Neuropathy VITAMIN B-12 Routine 07/09/2022 3:12 PM CDT Neuropathy EMG Routine 02/26/2022 2:38 PM GARDEN TRACTOR MECHANIC Idiopathic progressive neuropathy ULTRASOUND GENERIC (SCAN ORDER) 11/07/2021 CBC W/DIFF AUTOMATED Routine 10/20/2021 12:21 PM CDT Annual physical exam General medical exam Primary hypertension Secondary hypercoagulable state COMPREHENSIVE METABOLIC PANEL Routine 10/20/2021 12:21 PM CDT Annual physical exam General medical exam Primary hypertension TSH W/REFLEX Routine 10/20/2021 12:21 PM CDT Annual physical exam General medical exam Screening for hypothyroidism Primary hypertension LIPID PANEL Routine 10/20/2021 12:21 PM CDT Annual physical exam General medical exam Mixed hyperlipidemia HEMOGLOBIN, GLYCOSYLATED Routine 10/20/2021 12:21 PM CDT Annual physical exam General medical exam Screening for diabetes mellitus Primary hypertension PROSTATE SPECIFIC ANTIGEN,SCREENING Routine 10/20/2021 12:21 PM CDT Screening for prostate cancer COLLECTION VENOUS BLOOD VENIPUNCTURE Routine 10/20/2021 11:55 AM CDT Annual physical exam General medical exam ALBUMIN URINE RANDOM W/CREATININE Routine 10/20/2021 Annual physical exam General medical exam Screening for diabetes mellitus URINALYSIS, AUTO, COMPLETE Routine 10/20/2021 Annual physical exam General medical exam Screening for diabetes mellitus Primary hypertension LIPID PANEL Routine 09/20/2021 7:44 AM CDT Mixed hyperlipidemia COLLECTION VENOUS BLOOD VENIPUNCTURE Routine 09/20/2021 7:40 AM CDT Mixed hyperlipidemia VASCULAR LAB GENERIC (SCAN ORDER) 08/14/2021 CBC W/DIFF AUTOMATED Routine 05/26/2021 9:30 AM CDT Primary hypertension Secondary hypercoagulable state COMPREHENSIVE METABOLIC PANEL Routine 05/26/2021 9:30 AM CDT Primary hypertension LIPID PANEL Routine 05/26/2021 9:30 AM CDT Mixed hyperlipidemia VASCULAR LAB GENERIC (SCAN ORDER) 05/16/2021 LIPID PANEL Routine 01/13/2021 9:30 AM GARDEN TRACTOR MECHANIC Mixed hyperlipidemia CBC W/DIFF AUTOMATED Routine 01/13/2021 9:30 AM GARDEN TRACTOR MECHANIC Primary hypertension IMAGE GENERIC 12/05/2020 URINE BACTERIA CULTURE Routine 12:23 PM CDT Frequency-urgency syndrome HEMOGLOBIN, GLYCOSYLATED Routine 11/23/2020 Frequency-urgency syndrome URINALYSIS AUTO DIP Routine 11/23/2020 Urinary frequency ELECTROCARDIOGRAM, COMPLETE Routine 11/17/2020 8:04 AM CDT Primary hypertension CRYPTOSPOR/GIARDIA AG, EIA Routine 11/15/2020 8:52 AM CDT DIRECT BILIRUBIN Routine 11/14/2020 9:56 AM CDT Nausea LIPASE Routine 11/14/2020 9:56 AM CDT Nausea COMPREHENSIVE METABOLIC PANEL Routine 11/14/2020 9:56 AM CDT Nausea URINALYSIS AUTO DIP Routine 11/14/2020 Nausea ECHO GENERIC (SCAN ORDER) 11/08/2020 VASCULAR LAB GENERIC (SCAN ORDER) 10/31/2020 PROSTATE SPECIFIC ANTIGEN,SCREENING Routine 10/18/2020 1:29 PM CDT Screening for prostate cancer COLLECTION VENOUS BLOOD VENIPUNCTURE Routine 10/18/2020 1:17 PM CDT Prostate cancer screening CBC W/DIFF AUTOMATED Routine 10/14/2020 9:29 AM CDT Annual physical exam Encounter for medical examination to establish care General medical exam COMPREHENSIVE METABOLIC PANEL Routine 10/14/2020 9:29 AM CDT Annual physical exam Encounter for medical examination to establish care General medical exam LIPID PANEL Routine 10/14/2020 9:29 AM CDT Annual physical exam Encounter for medical examination to establish care Screening for hyperlipidemia General medical exam TSH W/REFLEX Routine 10/14/2020 9:29 AM CDT Annual physical exam Encounter for medical examination to establish care Screening for hypothyroidism General medical exam HEMOGLOBIN, GLYCOSYLATED Routine 10/14/2020 9:29 AM CDT Annual physical exam Encounter for medical examination to establish care Screening for diabetes mellitus General medical exam HEPATITIS C ANTIBODY Routine 10/14/2020 9:29 AM CDT Annual physical exam Encounter for medical examination to establish care Encounter for hepatitis C screening test for low risk patient General medical exam VITAMIN D, 25 OH Routine 10/14/2020 9:29 AM CDT Annual physical exam Encounter for medical examination to establish care Encounter for vitamin deficiency screening General medical exam COLLECTION VENOUS BLOOD VENIPUNCTURE Routine 10/14/2020 8:49 AM CDT Annual physical exam Encounter for medical examination to establish care General medical exam ALBUMIN URINE RANDOM W/CREATININE Routine 10/14/2020 Annual physical exam Encounter for medical examination to establish care General medical exam URINALYSIS AUTO DIP Routine 10/14/2020 Annual physical exam Encounter for medical examination to establish care General medical exam ECG GENERIC (SCAN ORDER) 07/29/2020 ECG GENERIC (SCAN ORDER) 07/28/2020 COLONOSCOPY GENERIC (SCAN ORDER) 04/07/2019 Results * TSH W/REFLEX (10/26/2022 8:23 AM CDT) Only the most recent of3 resultswithin the time period is included. TSH 1.334 0.358 - 3.740 uIU/ML 12/13/2022 3:19 PM CDT [facility] 10/26/2022 8:23 AM CDT Rex Matute MD LABORATORY Final Result [facility] [address] [place] [address], * HEMOGLOBIN, GLYCOSYLATED (10/26/2022 8:23 AM CDT) Only the most recent of3 resultswithin the time period is included. Pathologist [facility] HGB A1C 5.2 4.5 - 6.2 % 12/13/2022 3:19 PM CDT [facility] ESTIMATED AVG GLUCOSE 103 74 - 106 MG/DL 12/13/2022 3:19 PM CDT [facility] 10/26/2022 8:23 AM CDT us Rex Matute MD LABORATORY Final Result Performing Organization Address [facility] de Phone Number [facility], CLARISSA [address] [place] [address], [place] [phone] * PROSTATE SPECIFIC ANTIGEN,SCREENING (10/26/2022 8:23 AM CDT) Only the most recent of3 resultswithin the time period is included. PSA 0.56 <4.00 NG/ML 12/13/2022 3:18 PM CDT [facility] Comment: ASSAY PERFORMED BY [employer] USING [employer]. PATIENT RESULTS DETERMINED BY ASSAYS FROM DIFFERENT MANUFACTURERS AND/OR BY DIFFERENT METHODS MAY NOT BE COMPARABLE. 10/26/2022 8:23 AM CDT us Rex Matute MD LABORATORY Final Result Performing Organization Address [facility] de Phone Number [facility] [address] [place] [address], [place] [phone] * (ABNORMAL) COMPREHENSIVE METABOLIC PANEL (10/26/2022 8:23 AM CDT) Only the most recent of5 resultswithin the time period is included. SODIUM S/P/B 139 136 - 145 MMOL/L 12/13/2022 3:19 PM CDT [facility] POTASSIUM S/P/B 4.6 3.5 - 5.1 MMOL/L 12/13/2022 3:19 PM CDT [facility] CHLORIDE S/P/B 105 98 - 107 MMOL/L 12/13/2022 3:19 PM CDT [facility] CO2 26.8 21 - 32 MMOL/L 12/13/2022 3:19 PM CDT [facility] GLUCOSE 97 70 - 99 MG/DL 12/13/2022 3:19 PM T [facility] BUN 20(H) 7 - 18 MG/DL 12/13/2022 3:19 PM T [facility] CREATININE S/P/B 0.95 0.70 - 1.30 MG/DL 12/13/2022 3:19 PM T [facility] CALCIUM S/P/B 9.1 8.4 - 10.5 MG/DL 12/13/2022 3:19 PM CDT [facility] BILIRUBIN TOTAL S/P/B 0.5 0.2 - 1.0 MG/DL 12/13/2022 3:19 PM [facility] ALKALINE [facility]OSPHATASE S/P/B 88 45 - 115 U/L 12/13/2022 3:19 PM T [facility] AST 13(L) 15 - 37 U/L 12/13/2022 3:19 PM T [facility] ALT 13(L) 16 - 63 U/L 12/13/2022 3:19 PM T [facility] TOTAL PROTEIN S/P/B 7.5 6.4 - 8.2 G/DL 12/13/2022 3:19 PM T [facility] ALBUMIN S/P/B 3.8 3.4 - 5.0 G/DL 12/13/2022 3:19 PM T [facility] ANION GAP 7.2 5 - 15 MMOL/L 12/13/2022 3:19 PM T -[facility] Comment:REFERENCE RANGE NOT ESTABLISHED OSMOLALITY (CALC) 291 MOSM/KG 023 3:19 PM T [facility] Comment:REFERENCE RANGE NOT ESTABLISHED GFR ESTIMATE >90 >90 ML/MIN/1. 73 M2 12/13/2022 3:19 PM T [facility] GFR NOTES GFR REFERENCE S: 12/13/2022 3:19 PM CDT [facility] Comment: THE ESTIMATED GFR IS CALCULATED USING THE 2020 CKD-EPI EQUATION. THE FOLLOWING CATEGORIES FOR GRADING RENAL FUNCTION ARE RECOMMENDED BY THE [employer] OF NEPHROLOGY (KDIGO 2012 CLINICAL PRACTICE GUIDELINE). G1,NORMAL OR HIGH: >89 ml/min/1.73 m2 G2,MILDLY DECREASED: 60-89 ml/min/1.73 m2 G3A,MILDLY TO MODERATELY DECREASED: 45-59 ml/min/1.73 m2 G3B,MODERATELY TO SEVERELY DECREASED: 30-44 ml/min/1.73 m2 G4,SEVERELY DECREASED: 15-29 ml/min/1.73 m2 G5,KIDNEY FAILURE: <15 ml/min/1.73 m2 10/26/2022 8:23 AM CDT Rex Matute MD LABORATORY Final Result [facility] [address] [place] [address], * LIPID PANEL (10/26/2022 8:23 AM CDT) Only the most recent of6 resultswithin the time period is included. CHOLESTEROL 150 <200 MG/DL 12/13/2022 3:19 PM CDT [facility] TRIGLYCERIDES 56 <150 MG/DL 12/13/2022 3:19 PM CDT [facility] HDL 58 >40 MG/DL 12/13/2022 3:19 PM CDT [facility] LDL-C 81 <100 MG/DL 12/13/2022 3:19 PM CDT [facility] VLDL CALCULATION 11 5 - 28 MG/DL 12/13/2022 3:19 PM CDT [facility] CHOL/HDL RATIO 2.6 0.0 - 4.0 12/13/2022 3:19 PM CDT [facility] LDL/HDL 1.4 0.41 - 2.13 12/13/2022 3:19 PM CDT [facility] NON HDL CHOLESTEROL 92 <140 MG/DL 12/13/2022 3:19 PM CDT [facility] 10/26/2022 8:23 AM CDT Rex Matute MD LABORATORY Final Result [facility] [address] [place] [address], * (ABNORMAL) CBC W/DIFF AUTOMATED (10/26/2022 8:23 AM CDT) Only the most recent of5 resultswithin the time period is included. WBC 4.03 4.00 - 10.80 x10'3/uL 12/12/2022 4:54 PM CDT [facility] RBC 5.07 4.50 - 6.10 x10'6/uL 12/12/2022 4:54 PM CDT [facility] HGB 16.0 13.0 - 18.0 G/DL 12/12/2022 4:54 PM CDT [facility] HCT 48.1 37.0 - 52.0 % 12/12/2022 4:54 PM CDT [facility] MCV 94.9 78.0 - 100.0 FL 12/12/2022 4:54 PM CDT [facility] MCH 31.6(H) 27.0 - 31.0 PG 12/12/2022 4:54 PM CDT [facility] MCHC 33.3 33.0 - 36.0 G/DL 12/12/2022 4:54 PM CDT [facility] RDW 11.6 11.5 - 14.5 % 12/12/2022 4:54 PM CDT [facility] PLT 154 150 - 350 x10'3/uL 12/12/2022 4:54 PM CDT [facility] MPV 10.6(H) 7.4 - 10.4 FL 12/12/2022 4:54 PM CDT [facility] DIFFERENTIAL TYPE AUTOMATED DIFFERENTIAL 12/12/2022 4:54 PM CDT [facility] NEUTROPHILS % 47.5 % 12/12/2022 4:54 PM CDT [facility] LYMPHOCYTES % 36.0 % 12/12/2022 4:54 PM CDT [facility] MONOCYTES % 7.2 % 12/12/2022 4:54 PM CDT [facility] EOSINOPHILS % 7.9 % 12/12/2022 4:54 PM CDT [facility] BASOPHILS % 1.2 % 12/12/2022 4:54 PM CDT [facility] IMMATURE GRANS % 0.2 % 12/12/2022 4:54 PM CDT [facility] ABS. NEUTROPHILS 1.91 1.60 - 8.30 x10'3/uL 12/12/2022 4:54 PM CDT [facility] ABS. LYMPHOCYTES 1.45 0.80 - 4.70 x10'3/uL 12/12/2022 4:54 PM CDT [facility] ABS. MONOCYTES 0.29 0.00 - 1.50 x10'3/uL 12/12/2022 4:54 PM CDT [facility] ABS. EOSINOPHILS 0.32 0.00 - 0.40 x10'3/uL 12/12/2022 4:54 PM CDT [facility] ABS. BASOPHILS 0.05 0.00 - 0.20 x10'3/uL 12/12/2022 4:54 PM CDT [facility] ABS. IMMATURE GRANULOCYTES 0.01 0.00 - 0.03 x10'3/uL 12/12/2022 4:54 PM CDT [facility] 10/26/2022 8:23 AM CDT Rex Matute MD LABORATORY Final Result [facility] [address] [facility] [place] [address], [place] [phone] * (ABNORMAL) VITAMIN B-12 (07/09/2022 3:12 PM CDT) VITAMIN B12 S/P/B 1,350(H) 254 - 1,320 PG/ML 07/09/2022 4:10 PM CDT [facility] 07/09/2022 3:12 PM CDT Gerald Aceves MD LABORATORY Final Res ult [facility] [address] [place] [address], [place] [phone] * FOLIC ACID SERUM (07/09/2022 3:12 PM CDT) FOLATE 6.9 3.1 - 17.5 NG/ML 07/09/2022 4:10 PM CDT [facility] 07/09/2022 3:12 PM CDT Gerald Aceves MD LABORATORY Final Res ult [facility] [address] [place] [address], [place] [phone] * VITAMIN B6 (07/09/2022 3:12 PM CDT) VITAMIN B6 S/P/B 12.6 2.1 - 21.7 ng/mL 07/18/2022 2:53 PM CDT [employer] [facility] JUVENTINO CLARI Comment: Vitamin supplementation within 24 hours prior to blood draw may affect the accuracy of the results. This test was developed and its analytical performance characteristics have been determined by [employer] [place], [place]. It has not been cleared or approved by the U.S. Food and Drug Administration. This assay has been validated pursuant to the CLIA regulations and is used for clinical purposes. Test Performed by [facility] [employer], [address] [place] [address] Babar Zhong M.D., Ph.D., Director of Laboratories , CLIA [id number] 07/09/2022 3:12 PM CDT Gerald Aceves MD LABORATORY Final Res ult [employer] , [place] [phone] * VITAMIN B1 THIAMINE (07/09/2022 3:12 PM CDT) [facility] VITAMIN B1 S/P/B 14 8 - 30 nmol/L 07/16/2022 5:46 AM CDT [employer] [facility]UVENTINO CLARI Comment: Vitamin supplementation within 24 hours prior to blood draw may affect the accuracy of the results. This test was developed and its analytical performance characteristics have been determined by [place]. It has not been cleared or approved by the U.S. Food and Drug Administration. This assay has been validated pursuant to the CLIA regulations and is used for clinical purposes. Test Performed by [facility] [place], [address] [place] [address] Babar Zhong M.D., Ph.D., Director of Laboratories , CLIA [id number] 07/09/2022 3:12 PM CDT us Gerald Aceves MD LABORATORY Final Res ult [employer] [facility] [employer] [place] [address] [place] [address], [place] [phone] * PROTEIN, ELECTROPHORESIS (07/09/2022 3:12 PM CDT) TOTAL PROTEIN (ELECTROPHORESIS SERUM) 7.1 6.1 - 8.1 g/dL 07/14/2022 5:18 PM CDT [facility] [place] [facility] ALBUMIN ELECTROPHORESIS S/P/B 4.1 3.8 - 4.8 g/dL 07/14/2022 5:18 PM CDT [facility] [place] [facility] [id number] S/P/B 0.2 0.2 - 0.3 g/dL 07/14/2022 5:18 PM CDT [facility] [place] [facility] [id number]-[id number] S/P/B 0.6 0.5 - 0.9 g/dL 07/14/2022 5:18 PM CDT [facility] [place] [facility] BETA 1 GLOBULIN S/P/B 0.4 0.4 - 0.6 g/dL 07/14/2022 5:18 PM CDT [facility] [facility] BETA 2 GLOBULIN S/P/B 0.4 0.2 - 0.5 g/dL 07/14/2022 5:18 PM CDT [facility] [place] [facility] GAMMA GLOBULIN S/P/B 1.3 0.8 - 1.7 g/dL 07/14/2022 5:18 PM CDT [facility] [facility] ABNORMAL PROTEIN BAND 1 S/P/B REPORT 07/14/2022 5:18 PM CDT [facility] Comment: No M David detected. Reference Range: None Detected ABNORMAL PROTEIN BAND 3 S/P/B END OF REPORT 07/14/2022 5:18 PM CDT [facility] ELECTROPHORESIS INTERPRETATION REPORT 07/14/2022 5:18 PM CDT [facility] Comment: Normal Electrophoretic Pattern Test Performed by Kevin Brand, 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 The patient had a COVID infection in 2020. Since then, his symptoms are exacerbated. The patient had EMG nerve conduction performed of bilateral lower extremities. Results are as follows. SENSORY NERVE CONDUCTION STUDIES Right sural: No response. Left sural: Latency of 4.35 with amplitude of 3.7. Right superficial peroneal nerve: Latency of 4.75 with amplitude of 7.0. MOTOR NERVE CONDUCTION STUDIES Left common peroneal to EDB: Latency of 10.45 which is highly prolonged with amplitude of 0.3 which is low, conduction velocity of 36.7. Right common peroneal to EDB: Latency of 9.1 which is highly prolonged with amplitude of 0.3 which is low, conduction velocity of 31.3. Left tibial to adductor hallucis: Latency of 5.2 with amplitude of 2.8, conduction velocity of 27.3. Right tibial to adductor hallucis: Latency of 5.1 with amplitude of 3.7, conduction velocity of 28.1. Prolonged conduction velocity bilateral tibial. EMG was performed of bilateral lower extremities. Right gastrocnemius lateral head, right gastrocnemius medial head, right tibialis anterior, right peroneus longus, right extensor hallucis longus. Left gastrocnemius lateral head, left gastrocnemius medial head, left tibialis anterior, left peroneus longus, left extensor hallucis longus. Normal insertional activity. No fibs, positive sharp waves or fasciculations seen. Motor units with normal amplitude and duration. Recruitment pattern is normal. CONCLUSION: Electrodiagnostic evidence for severe sensorimotor polyneuropathy seen in bilateral lower extremities. I did advise the patient to start taking multivitamin supplementation/B complex. The patient might benefit from workup further reversible causes of neuropathy. #[id number] /TAP us Rxe Matute MD NEUROLOGY ORDERABLES Final Resul t ESCRIPTION * ULTRASOUND GENERIC (11/07/2021) Anatomical Region Laterality Modality Other 11/07/2021 Narrative 11/07/2021 Ordered by an unspecified provider. us Documents Scanned SCANNING Final Result * URINALYSIS, AUTO, COMPLETE (10/20/2021) COLOR (U) YELLOW [address], [place] TRANSPARENCY CLEAR MG-[address], [facility] GLUCOSE (U) NEGATIVE NEGATIVE MG/DL MG-[address], [facility] BILIRUBIN (U) NEGATIVE NEGATIVE MG-[address], [facility] KETONES MG/DL (U) NEGATIVE NEGATIVE MG/DL MG-[address], [facility] SPECIFIC GRAVITY (U) 1.015 1.001 - 1.035 MG-[address], [facility] BLOOD (U) TRACE (Non Hemolyzed, Intact) NEGATIVE MG-[address], [facility] U PH 6.0 5.0 - 9.0 MG-[address], [facility] PROTEIN (U) NEGATIVE NEGATIVE mg/dL MG-[address], [facility] UROBILINOGEN 0.2 0.2 - 1.0 EU/dL = mg/dL MG-[address], [facility] NITRITES NEGATIVE NEGATIVE MG/DL MG-[address], [facility] LEUKOCYTES (U) NEGATIVE NEGATIVE MG-[address], [facility] URINE SPECIMEN OBTAINED BY CLEAN CATCH PROCEDURE / Unknown 10/20/2021 Rex Matute MD URINE ORDERABLES Final Result Performing Organization Address [facility] Co de Phone Number [id number], [facility] [address] [place] [address], [place] [phone] * ALBUMIN URINE RANDOM (10/20/2021) Only the most recent of2 resultswithin the time period is included. Pathologist [facility] MICROALBUMIN (U) 10 MG- [address], [facility] CREATININE RANDOM (U) 200 MG[address], [facility] MICROALB/CREAT <30 MG-[address], [facility] URINE SPECIMEN / Unknown 10/20/2021 Impressions MG-[address], [place] - 10/20/2021 normal Rex Matute MD URINE ORDERABLES Final Result Performing Organization Address [facility] Co de Phone Number [id number], [facility] [address] [place] [address], [place] [phone] * VASCULAR LAB GENERIC (08/14/2021) 08/14/2021 Narrative 08/14/2021 Ordered by an unspecified provider. us Documents Scanned SCANNING Final Result * VASCULAR LAB GENERIC (05/16/2021) 05/16/2021 Narrative 05/16/2021 Ordered by an unspecified provider. us Documents Scanned SCANNING Final Result * IMAGE GENERIC (12/05/2020) Anatomical Region Laterality Modality Other 12/05/2020 Narrative 12/05/2020 Ordered by an unspecified provider. us Documents Scanned SCANNING Final Result * CULTURE URINE (11/23/2020 12:23 PM CDT) SPEC DESCRIPTION URINE CLEAN CATCH 11/23/2020 12:23 PM CDT [facility] SPECIAL REQUESTS NO SPECIAL REQUEST 11/23/2020 12:23 PM CDT [facility] CULTURE RESULT FEW CONTAMINANTS 09/2020 9:42 PM CDT [facility] URINE SPECIMEN OBTAINED BY CLEAN CATCH PROCEDURE / Unknown 11/23/2020 12:23 PM CDT 11/24/2020 2:05 PM CDT us Rex Matute MD MICROBIOLOGY - GENERAL ORDERABLE S Final Result [facility] [address] [place] [address], [place] [phone] [id number] * URINALYSIS AUTO DIP (11/23/2020) Only the most recent of3 resultswithin the time period is included. COLOR (U) YELLOW MG-[address], [facility] TRANSPARENCY CLEAR MG-[address], [facility] GLUCOSE (U) NEGATIVE NEGATIVE MG/DL MG-[address], [facility] BILIRUBIN (U) NEGATIVE NEGATIVE MG-[address], [facility]FF KETONES MG/DL (U) NEGATIVE NEGATIVE MG/DL MG-[address], [facility] SPECIFIC GRAVITY (U) 1.020 1.001 - 1.035 MG-[address], [facility] BLOOD (U) MODERATE (Non Hemolyzed, Intact, About 50 rbc/uL) NEGATIVE MG-[address], [facility] U PH 7.5 5.0 - 9.0 MG-[address], [facility] PROTEIN (U) NEGATIVE NEGATIVE mg/dL MG-[address], [facility] UROBILINOGEN 0.2 0.2 - 1.0 EU/dL = mg/dL MG-[address], [facility] NITRITES NEGATIVE NEGATIVE MG/DL MG-[address], [facility] LEUKOCYTES (U) NEGATIVE NEGATIVE MG-[address], [facility] URINE SPECIMEN OBTAINED BY CLEAN CATCH PROCEDURE / Unknown 11/23/2020 us Rex Matute MD URINE ORDERABLES Final Result [address], [facility] [address] [facility] [address] [place] [address], * A1C (BACK OFFICE) (11/23/2020) HGB A1C 4.9 % MG-[address], [facility] 11/23/2020 Rex Matute MD LABORATORY Final Result [address], [facility] [address] [facility] [address] [place] [address], * [id number] - EKG (In Clinic Complete tracing, interp & report) (11/17/2020 8:04 AM CDT) us Rex Matute MD PROCEDURES-RESULTABLE Edited Res ult - Final * CRYPTOSPOR/GIARDIA AG, EIA (11/15/2020 8:52 AM CDT) CRYPTOSPOR AG (STOOL) SEE NOTE [facility] Comment: CRYPTOSPORIDIUM ANTIGEN, EIA Micro Number: [id number] Test Status: Final Specimen Source: Stool Specimen Quality: Adequate Cryptosporidium: Not Detected Reference Range: Not Detected NOTE: Due to intermittent shedding, one negative sample does not necessarily rule out the presence of a parasitic infection. EIA TEST SEE NOTE [facility] Comment: GIARDIA AG, EIA, STOOL Micro Number: [id number] Test Status: Final Specimen Source: Stool Specimen Quality: Adequate Giardia Result 1: Not Detected Reference Range: Not Detected NOTE: Due to intermittent shedding, one negative sample does not necessarily rule out the presence of a parasitic infection. 11/15/2020 8:52 AM CDT 11/15/2020 2:14 PM CDT Rex Matute MD BODY FLUIDS AND STOOLS ORDERABLE S Final Result Performing Organization Address [facility]/ZIP Co de Phone Number [facility] [address] [place] [address] * DIRECT BILIRUBIN (11/14/2020 9:56 AM CDT) BILIRUBIN DIRECT S/P/B 0.2 0.0 - 0.2 MG/DL 11/14/2020 5:32 PM CDT [facility] 11/14/2020 9:56 AM CDT Rex Matute MD LABORATORY Final Result Performing Organization Address [facility] Co de Phone Number [address] [address], * LIPASE (11/14/2020 9:56 AM CDT) LIPASE 115 73 - 393 UNITS/L 11/14/2020 4:50 PM CDT [facility] 11/14/2020 9:56 AM CDT Rex Matute MD LABORATORY Final Result Performing Organization Address [facility] de Phone Number [address] [address], * ECHO GENERIC (11/08/2020) Anatomical Region Laterality Modality Other 11/08/2020 Narrative 11/08/2020 Ordered by an unspecified provider. us Documents Scanned SCANNING Final Result * VASCULAR LAB GENERIC (10/31/2020) 10/31/2020 Narrative 10/31/2020 Ordered by an unspecified provider. Documents Scanned SCANNING Final Result * HEPATITIS C ANTIBODY (10/14/2020 9:29 AM CDT) Pathologist [facility] HEPATITIS C AB NON-REACTI VE NON-REACT BARON 10/15/2020 6:12 PM CDT [facility] Comment: ANTIBODIES TO HCV NOT DETECTED. DOES NOT EXCLUDE THE POSSIBILITY OF EXPOSURE TO HCV. 10/14/2020 9:29 AM CDT Rex Matute MD LABORATORY Final Result [facility] [address] [place] [address], [place] [phone] [id number] * VITAMIN D, 25 OH (10/14/2020 9:29 AM CDT) Pathologist [facility] VITAMIN D 25 HYDROXY TOTAL S/P/B 38.3 20 - 50 NG/ML 10/15/2020 10:24 AM CDT [facility] Comment: <10 ng/mL (Severe deficiency) 10 TO 19 ng/mL (Mild to Moderate deficiency) 20 TO 50 ng/mL (Optimum levels) 51 TO 80 ng/mL (Increased risk of hypercalciuria) >80 ng/mL (Toxicity possible) 10/14/2020 9:29 AM CDT Rex Matute MD LABORATORY Final Result Performing Organization Address City/[facility]/ZIP Co de Phone Number [facility] [address] [place] [address], [place] [phone] * ECG GENERIC (07/29/2020) Only the most recent of2 resultswithin the time period is included. 07/29/2020 Narrative 07/29/2020 Ordered by an unspecified provider. us Documents Scanned SCANNING Final Result * COLONOSCOPY GENERIC (04/07/2019) 04/07/2019 Narrative 04/07/2019 Ordered by an unspecified provider. us Documents Scanned SCANNING Final Result Visit Diagnoses Diagnosis Start Date Mixed hyperlipidemia 10/14/2020 Annual physical exam Routine general medical examination at a health care facility 10/14/2020 Encounter for medical examination to establish care 10/14/2020 Screening for diabetes mellitus 10/14/2020 Screening for hyperlipidemia Screening for lipoid disorders 10/14/2020 Screening for hypothyroidism Screening for thyroid disorder 10/14/2020 Encounter for vitamin deficiency screening Screening for other and unspecified endocrine, nutritional, metabolic, and immunity disorders 10/14/2020 Encounter for hepatitis C screening test for low risk patient 10/14/2020 Screening for prostate cancer Special screening for malignant neoplasm of prostate 10/14/2020 General medical exam Unspecified general medical examination 10/14/2020 Gastroesophageal reflux disease without esophagitis Esophageal reflux 10/14/2020 History of DVT (deep vein thrombosis) Personal history of venous thrombosis and embolism 10/14/2020 History of pulmonary embolus (PE) Personal history of pulmonary embolism 10/14/2020 History of kidney stones Personal history of urinary calculi 10/14/2020 Lung nodule seen on imaging study Solitary pulmonary nodule 10/14/2020 History of COVID-19 10/14/2020 History of prostate cancer Personal history of malignant neoplasm of prostate 10/14/2020 Screening for prostate cancer Special screening for malignant neoplasm of prostate 10/17/2020 Prostate cancer screening Special screening for malignant neoplasm of prostate 10/18/2020 Mixed hyperlipidemia 11/03/2020 Nausea Nausea alone 11/14/2020 Acute gastroenteritis Other and unspecified noninfectious gastroenteritis and colitis 11/14/2020 Elevated blood pressure reading Elevated blood pressure reading without diagnosis of hypertension 11/14/2020 Hypertriglyceridemia Pure hyperglyceridemia 11/14/2020 Atherosclerosis of coronary artery, unspecified vessel or lesion type, unspecified whether angina present, unspecified whether [place] or transplanted heart 11/15/2020 Primary hypertension Unspecified essential hypertension 11/17/2020 Primary hypertension Unspecified essential hypertension 11/23/2020 AUNG (generalized anxiety disorder) Generalized anxiety disorder 11/23/2020 Dysthymia Dysthymic disorder 11/23/2020 Primary insomnia Persistent disorder of initiating or maintaining sleep 11/23/2020 Urinary frequency 11/23/2020 Frequency-urgency syndrome 11/23/2020 AUNG (generalized anxiety disorder) Generalized anxiety disorder 12/07/2020 Dysthymia Dysthymic disorder 12/07/2020 Primary hypertension Unspecified essential hypertension 12/07/2020 Paresthesia of both feet 12/07/2020 Primary hypertension Unspecified essential hypertension 12/16/2020 Primary insomnia Persistent disorder of initiating or maintaining sleep 12/16/2020 Secondary hypercoagulable state (HHS/HCC) Secondary hypercoagulable state 01/13/2021 Primary hypertension Unspecified essential hypertension 01/13/2021 Mixed hyperlipidemia 01/13/2021 Gastroesophageal reflux disease without esophagitis Esophageal reflux 01/13/2021 AUNG (generalized anxiety disorder) Generalized anxiety disorder 01/13/2021 Mild episode of recurrent major depressive disorder 01/13/2021 Dysthymia Dysthymic disorder 01/13/2021 Atherosclerosis of coronary artery, unspecified vessel or lesion type, unspecified whether angina present, unspecified whether [place] or transplanted heart 01/18/2021 Atherosclerosis of coronary artery, unspecified vessel or lesion type, unspecified whether angina present, unspecified whether [place] or transplanted heart 01/24/2021 Atherosclerosis of coronary artery, unspecified vessel or lesion type, unspecified whether angina present, unspecified whether [place] or transplanted heart 02/28/2021 Mixed hyperlipidemia 05/26/2021 Primary hypertension Unspecified essential hypertension 05/26/2021 Mixed hyperlipidemia 05/26/2021 Secondary hypercoagulable state (HHS/HCC) Secondary hypercoagulable state 05/26/2021 History of DVT (deep vein thrombosis) Personal history of venous thrombosis and embolism 05/26/2021 History of pulmonary embolus (PE) Personal history of pulmonary embolism 05/26/2021 Mixed hyperlipidemia 09/20/2021 Annual physical exam Routine general medical examination at a health care facility 10/20/2021 General medical exam Unspecified general medical examination 10/20/2021 Screening for diabetes mellitus 10/20/2021 Screening for hypothyroidism Screening for thyroid disorder 10/20/2021 Primary hypertension Unspecified essential hypertension 10/20/2021 Mixed hyperlipidemia 10/20/2021 Secondary hypercoagulable state (HHS/HCC) Secondary hypercoagulable state 10/20/2021 History of pulmonary embolus (PE) Personal history of pulmonary embolism 10/20/2021 History of DVT (deep vein thrombosis) Personal history of venous thrombosis and embolism 10/20/2021 History of kidney stones Personal history of urinary calculi 10/20/2021 Screening for prostate cancer Special screening for malignant neoplasm of prostate 10/20/2021 History of eye surgery Other states following surgery of eye and adnexa 10/20/2021 Lipoma of torso 10/20/2021 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 Idiopathic peripheral neuropathy Unspecified hereditary and idiopathic peripheral neuropathy 02/26/2022 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 02/26/2022 History of DVT (deep vein thrombosis) Personal history of venous thrombosis and embolism 05/08/2022 History of pulmonary embolus (PE) Personal history of pulmonary embolism 05/08/2022 Mixed hyperlipidemia 05/08/2022 Hypertriglyceridemia Pure hyperglyceridemia 05/08/2022 Primary hypertension Unspecified essential hypertension 05/08/2022 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 05/08/2022 Atherosclerosis of coronary artery, unspecified vessel or lesion type, unspecified whether angina present, unspecified whether [place] or transplanted heart 05/08/2022 Neuropathy Mononeuritis of unspecified site 07/09/2022 Neuropathy Mononeuritis of unspecified site 07/09/2022 DOWNTIME VISIT 10/26/2022 Mixed hyperlipidemia 10/26/2022 Primary hypertension Unspecified essential hypertension 10/26/2022 DVT, bilateral lower limbs (CMS/HCC HHS/HCC) Acute venous embolism and thrombosis of unspecified deep vessels of lower extremity 10/26/2022 Medication management Encounter for long-term (current) use of other medications 10/26/2022 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
[2025-01-16 15:16] VITALS: BP 154/94; PULSE 71; RESP 20; TEMP 36.4; O2SAT 100
[2025-01-16 15:21] VITALS: BP 187/92; PULSE 67; RESP 18; O2SAT 100
--- OUTSIDE RECORDS SUMMARY | 2025-01-16 16:07 | XMS_ITS | Encounter Summary ---
Author Organization [facility] Address [address] [place] [address] Care Team Providers Care Natural Resources Professor Name Role Phone Rex Matute MD Primary Care Provider [phone] Encounter Details Date Type Department Care Team (Late st Contact Info) Description 12/16/2020 [employer] Message Enc [facility] Medical Group Multispecialty Care - [place] [address] [address] [place] [address] [place] [address] [place] [address] [address] [place], [place] [id number] RE: Question Social History Tobacco Use Types [...] Sex Assigned at Male 03/13/2024 8:23 AM 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
--- OUTSIDE RECORDS SUMMARY | 2025-01-16 16:07 | XMS_ITS | Clinical Summary ---
Author Organization [facility] Address [address] [place] [address] Care Team Providers Care Deck Supervisor Name Role Phone Phillip Oconnor MD Primary Care Provider [phone] Allergies Active Allergy Reactions Criticality Noted Date [...] patient's age to complete this topic Insurance [facility] Care Teams Deck Supervisor Relationship Specialty Start Date End Date Phillip Oconnor MD [facility] [place] [id number] PCP - General Family Practice 09/21/20
--- OUTSIDE RECORDS SUMMARY | 2025-01-16 16:08 | XMS_ITS | Encounter Summary ---
Author Organization [facility] Address [address] [place] [address] Care Team Providers Care Director External Communications Name Role Phone Rex Matute MD Primary Care Provider [phone] Encounter Details Date Type Department Care Team (Late st Contact Info) Description 11/21/2022 [employer] Message Enc [facility] Medical Group Multispecialty Care - [place] [address] [address] [place], [place] [id number] Rex Matute MD [address] [place] [address] [address] [place], [place] [id number] Test results Social History Tobacco Use Types Packs/Day Years Used Date Smoking Tobacco: Never Smokeless Tobacco: Never Comments:Counseled by Dr. 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 Legal Sex Male 10:46 AM CDT Gender Identity Male 03/13/2024 8:23 AM TYPEWRITER RIBBON WINDER Sexual Orientation Straight 03/13/2024 8: 23 AM TYPEWRITER RIBBON WINDER documented as of this encounter Plan of Treatment Not on file documented as of this encounter Visit Diagnoses Not on filedocumented in this encounter Additional Health Concerns Assessment Noted Time PHQ-9 Depression Total Score: 0 01/14/20 21 9:11 AM TYPEWRITER RIBBON WINDER documented as of this encounter Care Teams Director External Communications Relationship Specialty Start Date End Date Rex Matute MD [address] [place] [address] [place] [address] PCP - General INTERNAL MEDICINE 03/06/24 documented as of this encounter
--- OUTSIDE RECORDS SUMMARY | 2025-01-16 16:08 | XMS_ITS | Encounter Summary ---
Author Organization [facility] Address [address] [place] [address] Care Team Providers Care Major Donor Coordinator Name Role Phone eRx Matute MD Primary Care Provider [phone] Encounter Details Date Type Department Care Team (Late st Contact Info) Description 09/25/2021 MyChart Message Enc [facility] Medical Group Multispecialty Care - [place] [address] [address] [place] [address] [place] [address] [place] [address] [address] [place], [place] [id number] Medication Social History Tobacco Use Types Packs/Day [...] Sex Assigned at Male 03/13/2024 8:23 AM TECHNICAL PHOTOGRAPHER Legal Sex Male 10:46 AM CDT Gender Identity Male 03/13/2024 8:23 AM TECHNICAL PHOTOGRAPHER Sexual Orientation Straight 03/13/2024 8: 23 AM TECHNICAL PHOTOGRAPHER COVID-19 Exposure Response Date Recorded In the [...] Total Score: 0 01/14/20 21 9:11 AM TECHNICAL PHOTOGRAPHER documented as of this encounter Care Teams Major Donor Coordinator Relationship Specialty Start Date End Date Rex Matute MD [address] [facility] [address] [place] [address] PCP - General INTERNAL MEDICINE 03/06/24 documented as of this encounter
--- OUTSIDE RECORDS SUMMARY | 2025-01-16 16:08 | XMS_ITS | Encounter Summary ---
Author Organization [facility] Address [address] [place] [address] Care Team Providers Care Mortgage Or Loan Underwriter Name Role Phone Rex Matute MD Primary Care Provider [phone] Encounter Details Date Type Department Care Team (Latest Contact Info) Description 05/21/2021 [employer] Message Enc [facility] Medical Group Multispecialty Care - [place] [address] [place] [address] [address] [place] [address] [place] [address] [place] [address] [address] [place], [place] [phone] fasting during your next appointment Social History [...] Sex Assigned at Male 03/13/2024 8:23 AM CRUST SORTER Legal Sex Male 10:46 AM CDT Gender Identity Male 03/13/2024 8:23 AM CRUST SORTER Sexual Orientation Straight 03/13/2024 8: 23 AM CRUST SORTER documented as of this encounter Plan of Treatment Not on file documented as of this encounter Visit Diagnoses Not on filedocumented in this encounter Additional Health Concerns Assessment Noted Time PHQ-9 Depression Total Score: 0 01/14/20 21 9:11 AM CRUST SORTER documented as of this encounter Care Teams Mortgage Or Loan Underwriter Relationship Specialty Start Date End Date Rex Matute MD [address] [address] PCP - General INTERNAL MEDICINE 03/06/24 documented as of this encounter
--- OUTSIDE RECORDS SUMMARY | 2025-01-16 16:08 | XMS_ITS | Continuity of Care Document ---
Author Organization [facility] Address [facility] [place] [address] Care Team Providers Care Porcelain Slusher Name Role Phone Rex Matute MD Primary Care Provider [phone] Encounters Date Type Department Care Team Description 04/13/2024 Scan AddressReport INFO SRVCS Scanned, Doc Med Group 03/13/2024 Travel 03/13/2024 8:00 AM JEWEL HOLE FINISH OPENER Office Visit [address] [address] [place] [address] Arabella Duval, TOOL AND DIE REPAIRER Cellulitis 03/06/2024 Travel 03/06/2024 2:20 PM JEWEL HOLE FINISH OPENER Office Visit [address] [place] [address] Arabella Duval, TOOL AND DIE REPAIRER Foot Pain (Red swollen) 02/03/2024 Telephone [address] [address] [place] [address] Rex Matute MD Follow Up Call 12/27/2023 ELIKE Message Enc [address] [place] [address] Rex Matute MD Annual physical 11/07/2023 [facility] [address] [place] [address] Rex Matute MD Follow Up Call 10/01/2023 MyChart Message Enc [facility] [address] [facility] [address] [place] [address] Rex Matute MD your annual physical 08/07/2023 [facility]phone [facility] [address] [facility] [address] [place] [address] Rex Matute MD Follow Up Call 03/29/2023 [facility]phone [facility] [place] [address] [facility] [address] [place] [address] Rex Matute MD Medication 02/15/2023 [facility] [place] [address] [facility] [address] [place] [address] Rex Matute MD Medication 02/15/2023 Telephone [place] [address] [facility] [address] [place] [address] Rex Matute MD Medication Information 01/25/2023 [facility]phone [facility] [place] [address] [facility] [address] [place] [address] Rex Matute MD Medication 11/21/2022 MyChart Message Enc [facility] [address] [address] [place] [address] Rex Matute MD Test results 11/14/2022 Scan [facility] INFO SRVCS Scanned, Doc [facility] Group 11/08/2022 Travel 10/26/2022 7:20 AM CDT [facility] [place] [address] [facility] [address] [place] [address] Rex Matute MD Downtime Visit 08/15/2022 Scan [facility] HEALTH INFO SRVCS Scanned, Doc Med Group 07/19/2022 Telephone [facility] - [address], [address] [place] [address] Gerald Aceves MD Lab Results; Returned Call 07/09/2022 3:05 PM CDT - 07/09/2022 11:59 PM CDT Hospital Encounter [facility] [place] [address] Gerald Aceves MD Discharge Disposition: Home or Self Care (Routine Discharge) 07/09/2022 Travel 07/09/2022 2:00 PM CDT [facility] [address], [address] [place] [address] Gerald Aceves MD Establish Care 05/08/2022 Travel 05/08/2022 7:20 AM CDT Office Visit [place] [address] [facility] [address] [place] [address] Rex Matute MD Follow Up (Pt is following up for chronic medical issues) 03/05/2022 Telephone [place] [address] [facility] [address] [place] [address] Rex Matute MD Results 03/02/2022 MyChart Message Enc [place] [address] [facility] [address] [place] [address] Rex Matute MD Question regarding EMG 02/26/2022 Telephone [place] [address] [facility] [address] [place] [address] Rex Matute MD Referral 02/26/2022 Travel 02/26/2022 2:38 PM JEWEL HOLE FINISH OPENER - 02/26/2022 11:59 PM JEWEL HOLE FINISH OPENER Hospital Encounter [facility] [address] [place] [address] Rex Matute MD Patchala, Sri K, MD Discharge Disposition: Home or Self Care (Routine Discharge) 01/31/2022 Travel 01/31/2022 2:20 PM JEWEL HOLE FINISH OPENER Office Visit [place] [address] [facility] [address] [place] [address] Rex Matute MD Numbness (Pt states he has numbness in his right foot and leg. Pt states the clots have somewhat gone now.) 01/26/2022 Telephone [place] [address] [facility] [address] [place] [address] Rex Matute MD Information 12/27/2021 Scan [facility] HE[facility] INFO SRVCS Scanned, Doc Med Group 12/11/2021 MyChart Message Enc [place] [address] [address] [facility] [address] [place] [address] Rex Matute MD Statin 11/28/2021 Scan [facility] INFO SRVCS Scanned, Documents 11/07/2021 Scan [facility] INFO SRVCS Scanned, Documents Ultrasound (SCAN) 10/28/2021 MyChart Message Enc [place] [address] [address] [facility] [address] [place] [address] Rex Matute MD Question regarding LIPID PANEL 10/20/2021 Travel 10/20/2021 11:40 AM CDT Office Visit [place] [address] [facility] [address] [place] [address] Rex Matute MD Follow Up (Chronic medical issues) 09/25/2021 MyChart Message Enc [place] [address] [address] [facility] [address] [place] [address] Rex Matute MD Medication 09/20/2021 Travel 09/20/2021 7:30 AM CDT Allied Health/Nurse Visit [place] [address] [place] [address] Rex Matute MD Allied Health Visit (Patient is here for a lipid lab draw) 08/16/2021 Scan [facility] HEALTH INFO SRVCS Scanned, Documents 08/14/2021 Scan [facility] HE[facility] INFO SRVCS Scanned, Documents Vascular Lab Study (SCAN) 05/26/2021 Telephone [place] [address] [facility] [address] [place] [address] Rex Matute MD Medication 05/26/2021 Travel 05/26/2021 9:00 AM CDT Office Visit [place] [address] [facility] [address] [place] [address] Rex Matute MD Follow Up (Pt is here to follow up on hypertension, hyperlipidemia, and history of PE.) 05/21/2021 MyChart Message Enc [place] [address] [facility] [address] [place] [address] Rex Matute MD fasting during your next appointment 05/16/2021 Scan [facility] HEALTH INFO SRVCS Scanned, Documents Vascular Lab Study (SCAN) 05/04/2021 Telephone [place] [address] [facility] [address] [place] [address] Rex Matute MD Results 05/01/2021 Telephone [place] [address] [facility] [address] [place] [address] Rex Matute MD Referral 04/30/2021 Scan [facility] HE[facility] INFO SRVCS Scanned, Documents 02/28/2021 Telephone [place] [address] [facility] [address] [place] [address] Rex Matute MD Medication 02/15/2021 Telephone [place] [address] [place] [address] Rex Matute MD Referral 02/01/2021 Scan [facility] HEALTH INFO SRVCS Scanned, Documents 01/24/2021 Telephone [place] [address] [place] [address] Rex Matute MD Results 01/24/2021 Orders Only [place] [address] [place] [address] Stephenie Dowling MA 01/23/2021 Telephone [place] [address] [place] [address] Rex Matute MD Question (Recieved fax back from [facility] and that the pt did not recieve his colonoscopy there. Called pt to ask where he had colonnoscopy done at. I left a voice message for pt to call back. ) 01/18/2021 Telephone [facility] [address] [place] [address] Rex Matute MD Refill Request 01/13/2021 Travel 01/13/2021 9:00 AM JEWEL HOLE FINISH OPENER Office Visit [place] [place] [address] Rex Matute MD Follow Up (3 month f/u, he has declined vaccines at this time) 01/10/2021 Travel 12/22/2020 Scan [facility] HEALTH INFO SRVCS Scanned, Documents 12/22/2020 Telephone [place] [address] [place] [address] Rex Matute MD Forms 12/21/2020 Telephone [place] [address] [place] [address] Rex Matute MD Follow Up Call 12/16/2020 Orders Only [facility] [place] [address] [place] [address] Rex Matute MD 12/16/2020 ELIKE Message Enc [facility] [place] [address] [place] [address] Rex Matute MD RE: Question 12/09/2020 Telephone [facility] [place] [address] [place] [address] Rex Matute MD Results 12/07/2020 Travel 12/07/2020 10:20 AM CDT Office Visit [place] [address] [address] [facility] [address] [place] [address] Rex Matute MD Follow Up (Pt is here to follow up on BP and is complaning of tingling in his feet and toes at night. ) 12/05/2020 Scan DFMSim SRVCS Scanned, Documents Image (SCAN) 11/25/2020 ELIKE Message Enc [facility] [place] [address] [place] [address] Rex Matute MD urine results 11/23/2020 - 11/23/2020 11:59 PM CDT Hospital Encounter [facility] [address] [place] [address] Rex Matute MD Discharge Disposition: Home or Self Care (Routine Discharge) 11/23/2020 Travel 11/23/2020 8:40 AM CDT Office Visit [place] [address] [address] [facility] [address] [place] [address] Rex Matute MD Blood Pressure (States he is having issues with high blood pressure when he checks it at home, especially in the evenings. This is causing him issues at night while trying to sleep, also frequent urination.) 11/21/2020 Telephone [place] [address] [facility] [address] [place] [address] Rex Matute MD Other 11/17/2020 Travel 11/17/2020 7:20 AM CDT Office Visit [place] [address] [place] [address] Rex Matute MD BP Check (Pt states his BP at home has been as high as 188/108 last night. He does not feel good. He can't sleep, has muscle tightness, and nausea. Her is afraid to exercise as he thinks he will have a heart attack.) 11/16/2020 Telephone [place] [address] [place] [address] Rex Matute MD Results 11/15/2020 Orders Only [place] [address] [place] [address] Rex Matute MD 11/15/2020 Telephone [place] [address] [place] [address] Rex Matute MD Follow Up Call 11/14/2020 Travel 11/14/2020 9:00 AM CDT Office Visit [place] [address] [facility] [address] [place] [address] Rex Matute MD Nausea (Pt has been nauseated for the past 2 weeks.); Note From Provider Request (patient wants a note of excemption for covid vaccination) 11/08/2020 Scan AddressReport INFO SRVCS Scanned, Documents Echo (SCAN) 11/03/2020 Telephone [place] [address] [place] [address] Rex Matute MD Medication Problem 10/31/2020 Scan HEALTH INFO SRVCS Scanned, Documents Vascular Lab Study (SCAN) 10/18/2020 1:00 PM CDT Allied Health/Nurse Visit [place] [address] [address] [place] [address] Lab Draw (PSA recheck) 10/17/2020 Travel 10/17/2020 Telephone [place] [address] [place] [address] Rex Matute MD Lab Order 10/14/2020 - 10/14/2020 11:59 PM CDT Hospital Encounter [facility] [address] Rex Matute MD Discharge Disposition: Home or Self Care (Routine Discharge) 10/14/2020 Telephone [place] [address] [address] [place] [address] Rex Matute MD Lab Results 10/14/2020 Travel 10/14/2020 8:20 AM CDT Office Visit [place] [place] [address] Rex Matute MD New Patient (establish care, [...] type, unspecified whether angina present, unspecified whether united [place] or transplanted heart TAKE 2 CAPSULES(2 GRAMS) [...] Sex Assigned at Male 03/13/2024 8:23 AM JEWEL HOLE FINISH OPENER Legal Sex Male 10:46 AM CDT Gender Identity Male 03/13/2024 8:23 AM JEWEL HOLE FINISH OPENER Sexual Orientation Straight 03/13/2024 8: 23 AM JEWEL HOLE FINISH OPENER Last Filed Vital Signs Vital Sign Reading Time Taken Comments Blood Pressure 138/84 03/13/2024 8:30 AM JEWEL HOLE FINISH OPENER Pulse 68 03/13/2024 8:23 AM JEWEL HOLE FINISH OPENER Temperature 36.7 C (98.1 F) 03/13/2024 8:23 AM JEWEL HOLE FINISH OPENER Respiratory Rate 18 03/13/2024 8:23 AM JEWEL HOLE FINISH OPENER Oxygen Saturation 98% 03/13/2024 8:23 AM JEWEL HOLE FINISH OPENER Inhaled Oxygen Concentration - - Weight 79.4 kg (175 lb) 03/13/2024 8:23 AM JEWEL HOLE FINISH OPENER Height 182.9 cm (6') 03/13/2024 8:23 AM JEWEL HOLE FINISH OPENER Body Mass Index 23.73 03/13/2024 8:23 AM JEWEL HOLE FINISH OPENER Plan of Treatment Not on file Procedures [...] CDT Neuropathy EMG Routine 02/26/2022 2:38 PM JEWEL HOLE FINISH OPENER Idiopathic progressive neuropathy ULTRASOUND GENERIC (SCAN ORDER) [...] 05/16/2021 LIPID PANEL Routine 01/13/2021 9:30 AM JEWEL HOLE FINISH OPENER Mixed hyperlipidemia CBC W/DIFF AUTOMATED Routine 01/13/2021 9:30 AM JEWEL HOLE FINISH OPENER Primary hypertension IMAGE GENERIC 12/05/2020 URINE BACTERIA [...] - 3.740 uIU/ML 12/13/2022 3:19 PM CDT [facility] 10/26/2022 8:23 AM CDT Rex Matute MD LABORATORY Final Result [facility] [address] [place] [address], * HEMOGLOBIN, GLYCOSYLATED (10/26/2022 8:23 AM CDT) Only the most recent of3 resultswithin the time period is included. Pathologist [facility] HGB A1C 5.2 4.5 - 6.2 % 12/13/2022 3:19 PM CDT [facility] ESTIMATED AVG GLUCOSE 103 74 - 106 MG/DL 12/13/2022 3:19 PM CDT [facility] 10/26/2022 8:23 AM CDT us Rex Matute MD LABORATORY Final Result Performing Organization Address [facility] de Phone Number [facility] [address] [place] [address], [place] [phone] * PROSTATE SPECIFIC ANTIGEN,SCREENING (10/26/2022 8:23 AM CDT) Only the most recent of3 resultswithin the time period is included. PSA 0.56 <4.00 NG/ML 12/13/2022 3:18 PM CDT [facility] Comment: ASSAY PERFORMED BY [employer] USING [employer]. PATIENT RESULTS DETERMINED BY ASSAYS FROM DIFFERENT MANUFACTURERS AND/OR BY DIFFERENT METHODS MAY NOT BE COMPARABLE. 10/26/2022 8:23 AM CDT us Rex Matute MD LABORATORY Final Result Performing Organization Address [facility] de Phone Number [facility] [address] [place] [address], [place] [phone] * (ABNORMAL) COMPREHENSIVE METABOLIC PANEL (10/26/2022 8:23 AM CDT) Only the most recent of5 resultswithin the time period is included. SODIUM S/P/B 139 136 - 145 MMOL/L 12/13/2022 3:19 PM CDT [facility] POTASSIUM S/P/B 4.6 3.5 - 5.1 MMOL/L 12/13/2022 3:19 PM CDT [facility] CHLORIDE S/P/B 105 98 - 107 MMOL/L 12/13/2022 3:19 PM CDT [facility] CO2 26.8 21 - 32 MMOL/L 12/13/2022 3:19 PM CDT [facility] GLUCOSE 97 70 - 99 MG/DL 12/13/2022 3:19 PM T [facility] BUN 20(H) 7 - 18 MG/DL 12/13/2022 3:19 PM T [facility] CREATININE S/P/B 0.95 0.70 - 1.30 MG/DL 12/13/2022 3:19 PM T [facility] CALCIUM S/P/B 9.1 8.4 - 10.5 MG/DL 12/13/2022 3:19 PM CDT [facility] BILIRUBIN TOTAL S/P/B 0.5 0.2 - 1.0 MG/DL 12/13/2022 3:19 PM [facility] ALKALINE PHOSPHATASE S/P/B 88 45 - 115 U/L 12/13/2022 3:19 PM T [facility] AST 13(L) 15 - 37 U/L 12/13/2022 3:19 PM T [facility] ALT 13(L) 16 - 63 U/L 12/13/2022 3:19 PM T [facility] TOTAL PROTEIN S/P/B 7.5 6.4 - 8.2 G/DL 12/13/2022 3:19 PM T [facility] ALBUMIN S/P/B 3.8 3.4 - 5.0 G/DL 12/13/2022 3:19 PM T [facility] ANION GAP 7.2 5 - 15 MMOL/L 12/13/2022 3:19 PM T -[facility] Comment:REFERENCE RANGE NOT ESTABLISHED OSMOLALITY (CALC) 291 MOSM/KG 023 3:19 PM T [facility] Comment:REFERENCE RANGE NOT ESTABLISHED GFR ESTIMATE >90 >90 ML/MIN/1. 73 M2 12/13/2022 3:19 PM T [facility] GFR NOTES GFR REFERENCE S: 12/13/2022 3:19 PM CDT [facility] Comment: THE ESTIMATED GFR IS CALCULATED USING [...] CDT Rex Matute MD LABORATORY Final Result [facility] [address] [place] [address], * LIPID PANEL (10/26/2022 8:23 AM CDT) Only the most recent of6 resultswithin the time period is included. CHOLESTEROL 150 <200 MG/DL 12/13/2022 3:19 PM CDT [facility] TRIGLYCERIDES 56 <150 MG/DL 12/13/2022 3:19 PM CDT [facility] HDL 58 >40 MG/DL 12/13/2022 3:19 PM CDT [facility] LDL-C 81 <100 MG/DL 12/13/2022 3:19 PM CDT [facility] VLDL CALCULATION 11 5 - 28 MG/DL 12/13/2022 3:19 PM CDT [facility] CHOL/HDL RATIO 2.6 0.0 - 4.0 12/13/2022 3:19 PM CDT [facility] LDL/HDL 1.4 0.41 - 2.13 12/13/2022 3:19 PM CDT [facility] NON HDL CHOLESTEROL 92 <140 MG/DL 12/13/2022 3:19 PM CDT [facility] 10/26/2022 8:23 AM CDT Rex Matute MD LABORATORY Final Result [facility] [address] [place] [address], * (ABNORMAL) CBC W/DIFF AUTOMATED (10/26/2022 8:23 AM CDT) Only the most recent of5 resultswithin the time period is included. WBC 4.03 4.00 - 10.80 x10'3/uL 12/12/2022 4:54 PM CDT -[facility] RBC 5.07 4.50 - 6.10 x10'6/uL 12/12/2022 4:54 PM CDT [facility] HGB 16.0 13.0 - 18.0 G/DL 12/12/2022 4:54 PM CDT -[facility] HCT 48.1 37.0 - 52.0 % 12/12/2022 4:54 PM CDT [facility] MCV 94.9 78.0 - 100.0 FL 12/12/2022 4:54 PM CDT [facility] MCH 31.6(H) 27.0 - 31.0 PG 12/12/2022 4:54 PM CDT [facility] MCHC 33.3 33.0 - 36.0 G/DL 12/12/2022 4:54 PM CDT [facility] RDW 11.6 11.5 - 14.5 % 12/12/2022 4:54 PM CDT -[facility] PLT 154 150 - 350 x10'3/uL 12/12/2022 4:54 PM CDT [facility] MPV 10.6(H) 7.4 - 10.4 FL 12/12/2022 4:54 PM CDT [facility] DIFFERENTIAL TYPE AUTOMATED DIFFERENTIAL 12/12/2022 4:54 PM CDT [facility] NEUTROPHILS % 47.5 % 12/12/2022 4:54 PM CDT [facility] LYMPHOCYTES % 36.0 % 12/12/2022 4:54 PM CDT [facility] MONOCYTES % 7.2 % 12/12/2022 4:54 PM CDT [facility] EOSINOPHILS % 7.9 % 12/12/2022 4:54 PM CDT [facility] BASOPHILS % 1.2 % 12/12/2022 4:54 PM CDT [facility] IMMATURE GRANS % 0.2 % 12/12/2022 4:54 PM CDT [facility] ABS. NEUTROPHILS 1.91 1.60 - 8.30 x10'3/uL 12/12/2022 4:54 PM CDT [facility] ABS. LYMPHOCYTES 1.45 0.80 - 4.70 x10'3/uL 12/12/2022 4:54 PM CDT [facility] ABS. MONOCYTES 0.29 0.00 - 1.50 x10'3/uL 12/12/2022 4:54 PM CDT [facility] ABS. EOSINOPHILS 0.32 0.00 - 0.40 x10'3/uL 12/12/2022 4:54 PM CDT [facility] ABS. BASOPHILS 0.05 0.00 - 0.20 x10'3/uL 12/12/2022 4:54 PM CDT [facility] ABS. IMMATURE GRANULOCYTES 0.01 0.00 - 0.03 x10'3/uL 12/12/2022 4:54 PM CDT [facility] 10/26/2022 8:23 AM CDT Rex Matute MD LABORATORY Final Result [facility] [address] [facility] [address], [place] [phone] * (ABNORMAL) VITAMIN B-12 (07/09/2022 3:12 PM CDT) VITAMIN B12 S/P/B 1,350(H) 254 - 1,320 PG/ML 07/09/2022 4:10 PM CDT [facility] 07/09/2022 3:12 PM CDT Gerald Aceves MD LABORATORY Final Res ult [facility] [address] [place] [address], [place] [phone] * FOLIC ACID SERUM (07/09/2022 3:12 PM CDT) FOLATE 6.9 3.1 - 17.5 NG/ML 07/09/2022 4:10 PM CDT [facility] 07/09/2022 3:12 PM CDT Gerald Aceves MD LABORATORY Final Res ult [facility] [address] [place] [address], [place] [phone] * VITAMIN B6 (07/09/2022 3:12 PM CDT) VITAMIN B6 S/P/B 12.6 2.1 - 21.7 ng/mL 07/18/2022 2:53 PM CDT [employer] [facility] Comment: Vitamin supplementation within 24 hours prior to blood draw may affect the accuracy of the results. This test was developed and its analytical performance characteristics have been determined by [employer] [place], [place]. It has not been cleared or approved by the U.S. Food and Drug Administration. This assay has been validated pursuant to the CLIA regulations and is used for clinical purposes. Test Performed by [facility], [address] [place] [address] Babar Zhong M.D., Ph.D., Director of Laboratories , CLIA [id number] 07/09/2022 3:12 PM CDT Gerald Aceves MD LABORATORY Final Res ult [employer] , [place] [phone] * VITAMIN B1 THIAMINE (07/09/2022 3:12 PM CDT) [facility] VITAMIN B1 S/P/B 14 8 - 30 nmol/L 07/16/2022 5:46 AM CDT [employer] [facility]ENT[facility] CLARI Comment: Vitamin supplementation within 24 hours prior to blood draw may affect the accuracy of the results. This test was developed and its analytical performance characteristics have been determined by [employer] [place]. It has not been cleared or approved by the U.S. Food and Drug Administration. This assay has been validated pursuant to the CLIA regulations and is used for clinical purposes. Test Performed by [facility] [place], [address] [place] [address] Babar Zhong M.D., Ph.D., Director of Laboratories , CLIA [id number] 07/09/2022 3:12 PM CDT us Gerald Aceves MD LABORATORY Final Res ult [employer] [address] [address] [place] [address], [place] [phone] * PROTEIN, ELECTROPHORESIS (07/09/2022 3:12 PM CDT) TOTAL PROTEIN (ELECTROPHORESIS SERUM) 7.1 6.1 - 8.1 g/dL 07/14/2022 5:18 PM CDT [facility] [place] [facility] ALBUMIN ELECTROPHORESIS S/P/B 4.1 3.8 - 4.8 g/dL 07/14/2022 5:18 PM CDT [facility] [place] [facility] [id number] S/P/B 0.2 0.2 - 0.3 g/dL 07/14/2022 5:18 PM CDT [facility] [place] [id number] S/P/B 0.6 0.5 - 0.9 g/dL 07/14/2022 5:18 PM CDT [facility] [place] BETA 1 GLOBULIN S/P/B 0.4 0.4 - 0.6 g/dL 07/14/2022 5:18 PM CDT [facility] [place] [facility] BETA 2 GLOBULIN S/P/B 0.4 0.2 - 0.5 g/dL 07/14/2022 5:18 PM CDT [facility] [place] GAMMA GLOBULIN S/P/B 1.3 0.8 - 1.7 g/dL 07/14/2022 5:18 PM CDT [facility] [place] [facility] ABNORMAL PROTEIN BAND 1 S/P/B REPORT 07/14/2022 5:18 PM CDT [facility] [facility] Comment: No M David detected. Reference Range: None Detected ABNORMAL PROTEIN BAND 3 S/P/B END OF REPORT 07/14/2022 5:18 PM CDT [facility] [place] [facility] ELECTROPHORESIS INTERPRETATION REPORT 07/14/2022 5:18 PM CDT [facility] Comment: Normal Electrophoretic Pattern Test Performed by [facility], [facility], [address] [place], [place] Babar Zhong M.D., Ph.D., Director of Laboratories , [facility] [id number] 07/09/2022 3:12 PM CDT Gerald Aceves MD LABORATORY Final Res ult [facility] [address] [place], [place] , * NCVS\EMG (Hosp Performed) (02/26/2022 2:38 PM JEWEL HOLE FINISH OPENER) 02/26/2022 2:38 PM JEWEL HO[employer] FINISH OPENER Narrative ESCRIPTION - 02/28/2022 1:14 PM JEWEL [employer] FINISH OPENER COMPLAINT: Numbness, tingling in both feet. The [...] from workup further reversible causes of neuropathy. #[id number] /TAP us Rex Matute MD NEUROLOGY ORDERABLES Final Resul t ESCRIPTION * ULTRASOUND GENERIC (11/07/2021) Anatomical Region Laterality Modality Other 11/07/2021 Narrative 11/07/2021 Ordered by an unspecified provider. us Documents Scanned SCANNING Final Result * URINALYSIS, AUTO, COMPLETE (10/20/2021) COLOR (U) YELLOW MG-1188 [address], [place] TRANSPARENCY CLEAR MG-11[address], [place] GLUCOSE (U) NEGATIVE NEGATIVE MG/DL MG-1188 RT 157, [place] BILIRUBIN (U) NEGATIVE NEGATIVE MG-[address], [place] KETONES MG/DL (U) NEGATIVE NEGATIVE MG/DL MG-1188 [address], [place] SPECIFIC GRAVITY (U) 1.015 1.001 - 1.035 MG-1188 [address], [place] BLOOD (U) TRACE (Non Hemolyzed, Intact) NEGATIVE MG-1188 [address], [place] U PH 6.0 5.0 - 9.0 MG-1188 [address], [place] PROTEIN (U) NEGATIVE NEGATIVE mg/dL MG-1188 [address], [place] UROBILINOGEN 0.2 0.2 - 1.0 EU/dL = mg/dL MG-1188 [address], [place] NITRITES NEGATIVE NEGATIVE MG/DL MG-11[address], [place] LEUKOCYTES (U) NEGATIVE NEGATIVE MG-11 [address], [place] URINE SPECIMEN OBTAINED BY CLEAN CATCH PROCEDURE / Unknown 10/20/2021 Rex Matute MD URINE ORDERABLES Final Result Performing Organization Address [facility] Co de Phone Number [id number] [address], [facility] [address] [place] [address], [place] [phone] * ALBUMIN URINE RANDOM (10/20/2021) Only the most recent of2 resultswithin the time period is included. Pathologist [facility] MICROALBUMIN (U) 10 MG- [address], [place] CREATININE RANDOM (U) 200 MG-1188 [address], [place] MICROALB/CREAT <30 MG-11 [address], [place] URINE SPECIMEN / Unknown 10/20/2021 Impressions MG-1188 [address], [place] - 10/20/2021 normal Rex Matute MD URINE ORDERABLES Final Result Performing Organization Address [facility] Co de Phone Number [id number] [address], [facility] [address] [place] [address], [place] [phone] * VASCULAR LAB GENERIC (08/14/2021) 08/14/2021 Narrative [...] URINE CLEAN CATCH 11/23/2020 12:23 PM CDT [facility] SPECIAL REQUESTS NO SPECIAL REQUEST 11/23/2020 12:23 PM CDT [facility] CULTURE RESULT FEW CONTAMINANTS 09/2020 9:42 PM CDT [facility] URINE SPECIMEN OBTAINED BY CLEAN CATCH PROCEDURE / Unknown 11/23/2020 12:23 PM CDT 11/24/2020 2:05 PM CDT us Rex Matute MD MICROBIOLOGY - GENERAL ORDERABLE S Final Result [facility] [address] [place] [address], [place] [phone] [id number] * URINALYSIS AUTO DIP (11/23/2020) Only the most recent of3 resultswithin the time period is included. COLOR (U) YELLOW MG-11[address], [place] TRANSPARENCY CLEAR MG-11[address], [place] GLUCOSE (U) NEGATIVE NEGATIVE MG/DL MG-11[address], [place] BILIRUBIN (U) NEGATIVE NEGATIVE MG-118 [address], [place] KETONES MG/DL (U) NEGATIVE NEGATIVE MG/DL MG-11[address], [place] SPECIFIC GRAVITY (U) 1.020 1.001 - 1.035 MG-1188 [address] 157, [place] BLOOD (U) MODERATE (Non Hemolyzed, Intact, About 50 rbc/uL) NEGATIVE MG-1188 [address], [place] U PH 7.5 5.0 - 9.0 MG-1188 [address], [place] PROTEIN (U) NEGATIVE NEGATIVE mg/dL MG-11[address], [place] UROBILINOGEN 0.2 0.2 - 1.0 EU/dL = mg/dL MG-1188 [address], [place] NITRITES NEGATIVE NEGATIVE MG/DL MG-11[address], [place] LEUKOCYTES (U) NEGATIVE NEGATIVE MG-11 [address], [place] URINE SPECIMEN OBTAINED BY CLEAN CATCH PROCEDURE / Unknown 11/23/2020 us Rex Matute MD URINE ORDERABLES Final Result MG-11[address], [facility] [address] [facility] [address] [place] [address], * A1C (BACK OFFICE) (11/23/2020) HGB A1C 4.9 % MG-1188 [address], [place] 11/23/2020 Rex Matute MD LABORATORY Final Result MG-11[address], [place] [address] [facility] [address] [place] [address], * [address] - EKG (In Clinic Complete tracing, interp & report) (11/17/2020 8:04 AM CDT) us Rex Matute MD PROCEDURES-RESULTABLE Edited Res ult - Final * CRYPTOSPOR/GIARDIA AG, EIA (11/15/2020 8:52 AM CDT) CRYPTOSPOR AG (STOOL) SEE NOTE [facility] Comment: CRYPTOSPORIDIUM ANTIGEN, EIA Micro Number: [id number] Test Status: Final Specimen Source: Stool Specimen Quality: Adequate Cryptosporidium: Not Detected Reference Range: Not Detected NOTE: Due to intermittent shedding, one negative sample does not necessarily rule out the presence of a parasitic infection. EIA TEST SEE NOTE [facility] Comment: GIARDIA AG, EIA, STOOL Micro Number: [id number] Test Status: Final Specimen Source: Stool Specimen Quality: Adequate Giardia Result 1: Not Detected Reference Range: Not Detected NOTE: Due to intermittent shedding, one negative sample does not necessarily rule out the presence of a parasitic infection. 11/15/2020 8:52 AM CDT 11/15/2020 2:14 PM CDT Rex Matute MD BODY FLUIDS AND STOOLS ORDERABLE S Final Result Performing Organization Address [facility]/ZIP Co de Phone Number [facility] [address] [place] [address] * DIRECT BILIRUBIN (11/14/2020 9:56 AM CDT) BILIRUBIN DIRECT S/P/B 0.2 0.0 - 0.2 MG/DL 11/14/2020 5:32 PM CDT [facility] 11/14/2020 9:56 AM CDT Rex Matute MD LABORATORY Final Result Performing Organization Address [facility] Co de Phone Number [address] [address], * LIPASE (11/14/2020 9:56 AM CDT) LIPASE 115 73 - 393 UNITS/L 11/14/2020 4:50 PM CDT [facility] 11/14/2020 9:56 AM CDT Rex Matute MD LABORATORY Final Result Performing Organization Address [facility] de Phone Number [address] [address], * ECHO GENERIC (11/08/2020) Anatomical Region Laterality Modality Other 11/08/2020 Narrative 11/08/2020 Ordered by an unspecified provider. us Documents Scanned SCANNING Final Result * VASCULAR LAB GENERIC (10/31/2020) 10/31/2020 Narrative 10/31/2020 Ordered by an unspecified provider. Documents Scanned SCANNING Final Result * HEPATITIS C ANTIBODY (10/14/2020 9:29 AM CDT) Pathologist [facility] HEPATITIS C AB NON-REACTI VE NON-REACT BARON 10/15/2020 6:12 PM CDT [facility] Comment: ANTIBODIES TO HCV NOT DETECTED. DOES NOT EXCLUDE THE POSSIBILITY OF EXPOSURE TO HCV. 10/14/2020 9:29 AM CDT Rex Matute MD LABORATORY Final Result [facility] [address] [place] [address], [place] [phone] [id number] * VITAMIN D, 25 OH (10/14/2020 9:29 AM CDT) Pathologist [facility] VITAMIN D 25 HYDROXY TOTAL S/P/B 38.3 20 - 50 NG/ML 10/15/2020 10:24 AM CDT [facility] Comment: <10 ng/mL (Severe deficiency) 10 TO 19 ng/mL (Mild to Moderate deficiency) 20 TO 50 ng/mL (Optimum levels) 51 TO 80 ng/mL (Increased risk of hypercalciuria) >80 ng/mL (Toxicity possible) 10/14/2020 9:29 AM CDT Rex Matute MD LABORATORY Final Result Performing Organization Address City/[facility]/ZIP Co de Phone Number [facility] [address] [place] [address], [place] [phone] * ECG GENERIC (07/29/2020) Only the most [...] type, unspecified whether angina present, unspecified whether [place] or transplanted heart 11/15/2020 Primary hypertension Unspecified [...] type, unspecified whether angina present, unspecified whether [place] or transplanted heart 01/18/2021 Atherosclerosis of coronary artery, unspecified vessel or lesion type, unspecified whether angina present, unspecified whether [place] or transplanted heart 01/24/2021 Atherosclerosis of coronary artery, unspecified vessel or lesion type, unspecified whether angina present, unspecified whether [place] or transplanted heart 02/28/2021 Mixed hyperlipidemia 05/26/2021 [...] type, unspecified whether angina present, unspecified whether [place] or transplanted heart 05/08/2022 Neuropathy Mononeuritis of [...] of leg, except foot 03/13/2024 Care Teams Porcelain Slusher Relationship Specialty Start Date End Date Naate, Nueki, MD [address] [address] PCP - General INTERNAL MEDICINE 03/06/24
--- OUTSIDE RECORDS SUMMARY | 2025-01-16 16:08 | XMS_ITS | Encounter Summary ---
Author Organization [facility] Address [address] [place] [address] Care Team Providers Care Contact Lens Cutter Name Role Phone Rex Matute MD Primary Care Provider [phone] Encounter Details Date Type Department Care Team (Latest Contact Info) Description 10/01/2023 [employer] Message Enc [facility] Medical Group Multispecialty Care - [place] [address] [address] [place], [place] [id number] Rex Matute MD [address] [facility] [address] [place], [place] [id number] your annual physical Social History Tobacco Use [...] Sex Assigned at Male 03/13/2024 8:23 AM RELATIONSHIP SPECIALIST Legal Sex Male 10:46 AM CDT Gender Identity Male 03/13/2024 8:23 AM RELATIONSHIP SPECIALIST Sexual Orientation Straight 03/13/2024 8: 23 AM RELATIONSHIP SPECIALIST documented as of this encounter Plan of Treatment Not on file documented as of this encounter Visit Diagnoses Not on filedocumented in this encounter Additional Health Concerns Assessment Noted Time PHQ-9 Depression Total Score: 0 01/14/20 21 9:11 AM RELATIONSHIP SPECIALIST documented as of this encounter Care Teams Contact Lens Cutter Relationship Specialty [place] [address] [place] [address] 157 [place] [address] PCP - General INTERNAL MEDICINE 03/06/24 documented as of this encounter
--- OUTSIDE RECORDS SUMMARY | 2025-01-16 16:08 | XMS_ITS | Clinical Summary ---
Author Organization [facility] [address] [facility] [address] Address [address] [place] [address] Care Team Providers Care Group Managing Director Name Role Phone Rex Matute MD Primary Care Provider [phone] Darwin Diaz DO Unavailable [phone] Allergies Active Allergy Reactions Criticality Noted Date [...] 12/07/2021 Assessment & Plan (12/27/2021 2:45 PM DISPLAY DIRECTOR): I had a long discussion with the [...] 12/07/2020 Assessment & Plan (12/27/2021 2:42 PM DISPLAY DIRECTOR): Lisinopril Assessment & Plan (12/07/2021 11:10 AM CDT): Impression: Patient newly diagnosed with hypertension. Patient is currently on antihypertensive medications. Blood pressure is controlled. Plan: Continue blood pressure management as per primary care provider. 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
--- OUTSIDE RECORDS SUMMARY | 2025-01-16 16:08 | XMS_ITS | Encounter Summary ---
Author Organization [facility] Address [address] [place] [address] Care Team Providers Care Global Security Architect Name Role Phone Rex Matute MD Primary Care Provider [phone] Encounter Details Date Type Department Care Team (Latest Contact Info) Description 03/02/2022 [place] Message Enc [facility] Medical Group Multispecialty Care - [place] [address] [address] [place] [address] Rex Matute MD [address] [place] [address] [address] [place] [address] Question regarding EMG Social History [...] Sex Assigned at Male 03/13/2024 8:23 AM AMBULATORY NURSE Legal Sex Male 10:46 AM CDT Gender Identity Male 03/13/2024 8:23 AM AMBULATORY NURSE Sexual Orientation Straight 03/13/2024 8: 23 AM AMBULATORY NURSE COVID-19 Exposure Response Date Recorded In the last 10 days, have yo u been in contact with someone who was confirmed or suspected to have Coronavirus/COVID-19? No / Unsure 02/26/2022 2:38 PM AMBULATORY NURSE documented as of this encounter Plan of Treatment Not on file documented as of this encounter Visit Diagnoses Not on filedocumented in this encounter Additional Health Concerns Assessment Noted Time PHQ-9 Depression Total Score: 0 01/14/20 21 9:11 AM AMBULATORY NURSE documented as of this encounter Care Teams Global Security Architect Relationship Specialty Start Date End Date Rex Matute MD [address] [facility] [address] [place] [address] PCP - General INTERNAL MEDICINE 03/06/24 documented as of this encounter
--- OUTSIDE RECORDS SUMMARY | 2025-01-16 16:08 | XMS_ITS | Encounter Summary ---
Author Organization [facility] Address [address] [place] [address] Care Team Providers Care Procurement Representative Name Role Phone Rex Matute MD Primary Care Provider [phone] Encounter Details Date Type Department Care Team (Latest Contact Info) Description 10/28/2021 [place] Message Enc [facility] Medical Group Multispecialty Care - [place] [address] [place] [address] [address] [place] [address] [place] [address] [place] [address] 157 [place], [place] [phone] Question regarding LIPID PANEL Social History Tobacco [...] Sex Assigned at Male 03/13/2024 8:23 AM COMPLIANCE OFFICER Legal Sex Male 10:46 AM CDT Gender Identity Male 03/13/2024 8:23 AM COMPLIANCE OFFICER Sexual Orientation Straight 03/13/2024 8: 23 AM COMPLIANCE OFFICER COVID-19 Exposure Response Date Recorded In the [...] Total Score: 0 01/14/20 21 9:11 AM COMPLIANCE OFFICER documented as of this encounter Care Teams Procurement Representative Relationship Specialty Start Date End Date Rex Matute MD [address] [address] PCP - General INTERNAL MEDICINE 03/06/24 documented as of this encounter
--- OUTSIDE RECORDS SUMMARY | 2025-01-16 16:08 | XMS_ITS | Encounter Summary ---
Author Organization [facility] Address [address] [place] [address] Care Team Providers Care Lead Ingot Molder Name Role Phone Rex Matute MD Primary Care Provider [phone] Encounter Details Date Type Department Care Team (Late st Contact Info) Description 12/27/2023 [employer] Message Enc [facility] Medical Group Multispecialty Care - [place] [address] [address] [address] [place], [place] [phone] Rex Matute MD [address] [place] [address] [address] [place], [place] [phone] Annual physical Social History Tobacco Use Types Packs/Day Years Used Date Smoking Tobacco: Never Smokeless Tobacco: Never Comments:Counseled by Dr. Stanley ate Alcohol Use Standard Drinks/Week Comments Not Currently 0 (1 standard drink = 0.6 oz pur e alcohol) PHQ-2 Answer Date Recorded Patient Health Questionnaire-2 Score 0 07/09/2022 Sex and Gender Information Value Date Recorded Sex Assigned at Male 03/13/2024 8:23 AM ENERGY ADVISOR Legal Sex Male 10:46 AM CDT Gender Identity Male 03/13/2024 8:23 AM ENERGY ADVISOR Sexual Orientation Straight 03/13/2024 8: 23 AM ENERGY ADVISOR documented as of this encounter Plan of Treatment Not on file documented as of this encounter Visit Diagnoses Not on filedocumented in this encounter Additional Health Concerns Assessment Noted Time PHQ-9 Depression Total Score: 0 01/14/20 21 9:11 AM ENERGY ADVISOR documented as of this encounter Care Teams Lead Ingot Molder Relationship Specialty Start Date End Date Rex Matute MD [address] [place] [address] [place] [address] PCP - General INTERNAL MEDICINE 03/06/24 documented as of this encounter
--- OUTSIDE RECORDS SUMMARY | 2025-01-16 16:08 | XMS_ITS | Encounter Summary ---
Author Organization [facility] Address [address] [place] [address] Care Team Providers Care Counter Cutter Name Role Phone Rex Matute MD Primary Care Provider [phone] Encounter Details Date Type Department Care Team (Late st Contact Info) Description 12/11/2021 [employer] Message Enc [facility] Medical Group Multispecialty Care - [place] [address] [address] [place] [address] [place] [address] [place] [address] 157 [place], [place] [phone] Statin Social History Tobacco Use Types Packs/Day [...] Sex Assigned at Male 03/13/2024 8:23 AM CODING COMPLIANCE MANAGER Legal Sex Male 10:46 AM CDT Gender Identity Male 03/13/2024 8:23 AM CODING COMPLIANCE MANAGER Sexual Orientation Straight 03/13/2024 8: 23 AM CODING COMPLIANCE MANAGER documented as of this encounter Plan of Treatment Not on file documented as of this encounter Visit Diagnoses Not on filedocumented in this encounter Additional Health Concerns Assessment Noted Time PHQ-9 Depression Total Score: 0 01/14/20 21 9:11 AM CODING COMPLIANCE MANAGER documented as of this encounter Care Teams Counter Cutter Relationship Specialty Start Date End Date Rex Matute MD [address] [address] PCP - General INTERNAL MEDICINE 03/06/24 documented as of this encounter
[2025-01-16 17:04] LABS: Hematocrit 47.8 % (42.0-52.0); Hemoglobin 16.5 g/dL (14.0-18.0); Immature Granulocyte Percent A 0.3 % (0-0.5); Lymphocytes Absolute Auto 2.17 K/mm3 (0.9-3.2); Mean Corpuscular HGB Conc 34.5 g/dl (32-36); Mean Corpuscular Hemoglobin 31.6 pg (26-34); Mean Corpuscular Volume 91.6 fl (80-100); Nucleated Red Blood Cells Absolute Auto 0.000 K/mm3 (0.0-0.012); Nucleated Red Blood Cells Perc 0.0 % (0.0-0.2); Platelet Count Result 162 k/mm3 (150-375); Red Blood Count 5.22 M/mm3 (4.6-6.20); White Blood Count 6.3 K/mm3 (4.5-10.0)
[2025-01-16 17:14] LABS: INR 1.1; Prothrombin Time 13.9 Seconds (11.1-14.7)
[2025-01-16 17:30] LABS: Anion Gap 5 mmol/L (4-12); Blood Urea Nitrogen 19 mg/dL (9-20); Calcium 9.4 mg/dL (8.4-10.2); Carbon Dioxide 26 mmol/L (22-30); Chloride 105 mmol/L (98-107); Estimated CRCL calculation 63 ml/min; Estimated Glomerular Filt Rate > 60; Glucose 97 mg/dL (65-110); Potassium 3.9 mmol/L (3.4-5.0); Sodium 136 mmol/L (137-145)
--- NOTE | 2025-01-16 17:35 | ED.LOWEXIN ---
HPI - Extremity Injury (Lower) General Chief Complaint: Extremity Injury, Lower Stated Complaint: LLE pain, concern for DVT Time Seen by Provider: 01/16/25 15:15 Source: patient Mode of arrival: ambulatory Limitations: no limitations History of Present Illness HPI Narrative: 59-year-old with a history of DVT, status post left hamstring muscles care recently presents to the ER with a complains of pain in the left popliteal area radiating down into his leg. He denies any shortness of breath or chest pain. Pain started yesterday and is concerned about DVT MD complaint: leg injury Onset (ago): day(s) (1) Place: home Severity: mild Relieving factors: nothing Exacerbating factors: nothing Related Data Home Medications ?Medication ?Instructions ?Recorded ?Confirmed ?Last Taken ?Type fenofibrate 54 mg tablet 54 mg PO QAM 04/06/19 08/07/20 01/20/20 History rivaroxaban 15 mg tablet (Xarelto) 15 mg PO BID 08/06/20 08/07/20 Unknown History Allergies Allergy/AdvReac Type Severity Reaction Status Date / Time aspirin Allergy Severe SWELLING Verified 01/22/20 07:59 morphine Allergy Severe HIVES Verified 01/22/20 07:59 Review of Systems Review of Systems: All systems reviewed & are unremarkable except as noted in HPI and below ROS unobtainable: Yes unobtainable due to endotracheal tube Constitutional: Constitutional: Reports no additional constitutional complaints Eyes: Eyes: Reports no additional eye complaints ENT: Reports system reviewed and no additional complaints, except as documented Cardiovascular: Cardiovascular: Reports no additional cardiovascular complaints Respiratory: Respiratory: Reports no additional respiratory complaints Gastrointestinal: Gastrointestinal: Reports no additional gastrointestinal complaints Musculoskeletal: Musculoskeletal: Reports as per HPI Neurologic: Reports system reviewed and no additional complaints, except as documented Psychiatric: Psychiatric: Reports no additional psychiatric complaints Endocrine: Endocrine: Reports no additional endocrine complaints [facility] Past Medical History Medical History DVT of lower extremity, bilateral Lung nodule, solitary Right lung nodule decreasing in size Pulmonary embolism Kidney stones Hyperlipidemia Surgical History Surgical History History of lithotripsy (01/2020) Right renal stone Family History Family History Mother Diabetes mellitus His mother is still alive at 93 years old Hypertension Father , at 86 years old Malignant neoplasm of prostate Coronary artery disease Late onset Brain tumor Social History Social History Social History: He is . 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 He continues to exercise at on his bike frequently. 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 HEAD: Normocephalic, atraumatic. EYES: PERRLA and EOMI. ENT: Nares clear, no rhinorrhea or epistaxis. Mucous membranes moist. NECK: Supple. CHEST: Clear to auscultation. No respiratory distress. HEART: Regular rate and rhythm. No murmur heard. Normal peripheral pulses. ABDOMEN: Soft, nontender, nondistended, normal active bowel sounds. EXTREMITIES: Normal range of motion. No edema. the examination of the left leg shows no edema no redness mild tenderness in the popliteal area SKIN: Warm, dry, no rash. NEURO: No focal deficits. Alert and oriented x3. PSYCH: Normal mood and affect. Course Course Emergency Course: informed patient about the lab work, at ultrasound findings. When the start him on Xarelto. Advised him to follow with his primary doctor Vital Signs Vital signs: Vital Signs Temperature 36.4 C L 01/16/25 15:16 Pulse Rate 71 01/16/25 15:16 Respiratory Rate 20 01/16/25 15:16 Blood Pressure 154/94 H 01/16/25 15:16 Pulse Oximetry 100 01/16/25 15:16 Temperature 36.4 C L 01/16/25 15:16 Pulse Rate 67 01/16/25 15:21 Respiratory Rate 18 01/16/25 15:21 Blood Pressure 187/92 H 01/16/25 15:21 Pulse Oximetry 100 01/16/25 15:21 Oxygen Delivery Room Air 01/16/25 15:21 MDM - Extremity Injury (Lower) Differential Diagnosis Differential diagnosis: Likely other ( muscle strain, DVT, Corona's cyst) Medical Records Attestation: I reviewed the patient's medical records. Lab Data Attestation: I reviewed the patient's lab results. 01/16/25 16:58 01/16/25 16:58 Labs: Lab Results 01/16/25 Range/Units 16:58 WBC 6.3 (4.5-10.0) K/mm3 RBC 5.22 (4.6-6.20) M/mm3 Hgb 16.5 (14.0-18.0) g/dL Hct 47.8 (42.0-52.0) % MCV 91.6 (80-100) fl MCH 31.6 (26-34) pg MCHC 34.5 (32-36) g/dl RDW 11.6 (11.5-14.5) % Plt Count 162 (150-375) k/mm3 MPV 10.1 (7.4-10.4) fl Immature Gran % (Auto) 0.3 (0-0.5) % Neut % (Auto) 48.2 (45.5-73.1) % Lymph % (Auto) 34.4 (18.3-44.2) % [place] % (Auto) 8.3 (2.6-8.5) % Eos % (Auto) 7.5 H (0-4.4) % Baso % (Auto) 1.3 H (0.2-1.2) % Lymph # (Auto) 2.17 (0.9-3.2) K/mm3 Tr[place]ble # (Auto) 0.5 (0.1-0.6) K/mm3 Eos # (Auto) 0.5 H (0-0.3) K/mm3 Baso # (Auto) 0.1 (0.0-0.1) K/mm3 Abs Immat Gran (auto) 0.02 (0.00-0.031) K/mm3 Absolute Neuts (auto) 3.0 (1.3-6.7) K/mm3 Absolute Nucleated RBC 0.000 (0.0-0.012) K/mm3 Nucleated RBC % 0.0 (0.0-0.2) % PT 13.9 (11.1-14.7) Seconds INR 1.1 Sodium 136 L (137-145) mmol/L Potassium 3.9 (3.4-5.0) mmol/L Chloride 105 (98-107) mmol/L Carbon Dioxide 26 (22-30) mmol/L Anion Gap 5 (4-12) mmol/L BUN 19 (9-20) mg/dL Creatinine 1.20 (0.7-1.3) mg/dL Estim Creat Clear Calc 63 ml/min Estimated GFR > 60 (59 - ) Glucose 97 (65-110) mg/dL Calcium 9.4 (8.4-10.2) mg/dL Imaging Data Radiologist's impression: ITS Impressions Venous Doppler Study 01/16/25 16:24 Impression: Chronic appearing DVT detailed above. Distinction from superimposed acute thrombus is limited. Follow-up is suggested to assess for change Chronic-appearing superficial thrombophlebitis Discharge Plan Discharge Clinical Impression: Acute deep vein thrombosis (DVT) of left lower extremity Patient Disposition: Home Condition: Stable Instructions: Antibiotic Form Patient Language: [place] Citizen Prescriptions: New rivaroxaban 15 mg (42)- 20 mg (9) tablets,dose pack See Rx Instructions .ROUTE .COMPLEX Qty: 51 0RF Rx Instructions: take one-15 mg tablet twice daily for 21 days, then one-20 mg tablet once daily; must take with meal/food No Action fenofibrate 54 mg tablet 54 mg PO QAM hydrocodone-acetaminophen 5-325 mg tablet 1 - 2 tablet PO Q6H PRN (Reason: pain) Qty: 20 0RF Xarelto 15 mg tablet 15 mg PO BID Follow-up/Referrals: Anette,Jamil Muller MD [Primary Care Provider, Unknown] Time of Disposition: 17:50
--- NOTE | 2025-01-16 18:33 | PC.NURSE ---
pharmacy called at this time they are sending xarelto at this time
[2025-01-16] MEDS: RIVAROXABAN 15 MG TABLET PO (18:53)
== END 2025-01-16 18:47 | disposition home or self-care (01) ==
PROVIDERS: Emergency Provider Family Medicine; PCP Family Medicine
DX: I82.432 Acute embolism and thrombosis of left popliteal vein (principal); I82.462 Acute embolism and thrombosis of left calf muscular vein; E78.5 Hyperlipidemia, unspecified; Z86.718 Personal history of other venous thrombosis and embolism; Z86.711 Personal history of pulmonary embolism; Z87.442 Personal history of urinary calculi
CPT/HCPCS: 36415; 80048; 85025; 85610; 93971; 99284; A9270